=== PATIENT | female | born 1960 | race Caucasian/White ===

== ENCOUNTER 2016-10-07 07:53 | Outpatient (CLI) | payer MEDICAID ==
[2016-10-07 11:37] LABS: BASOPHILS % (AUTO) 0.8 %; EOSINOPHILS # (AUTO) 0.2 10^3/uL (0.0-0.7); EOSINOPHILS % (AUTO) 3.3 %; HCT - HEMATOCRIT 33.7 % (37.0-47.0); HGB - HEMOGLOBIN 10.8 g/dL (12.0-16.0); LYMPHOCYTES # (AUTO) 1.9 10^3/uL (1.5-3.5); LYMPHOCYTES % (AUTO) 29.3 %; MEAN CORPUSCULAR HEMOGLOBIN 26.5 pg (27.0-31.0); MEAN CORPUSCULAR HGB CONC 32.1 g/dL (32.0-36.0); MEAN CORPUSCULAR VOLUME 82.4 fL (81.0-99.0); MEAN PLATELET VOLUME 8.9 fL (7.9-10.8); MONOCYTES # (AUTO) 0.5 10^3/uL (0.0-1.0); MONOCYTES % (AUTO) 7.5 %; NEUTROPHILS # (AUTO) 3.7 10^3/uL (1.5-6.6); NEUTROPHILS % (AUTO) 59.1 %; RED BLOOD COUNT 4.08 10^6/uL (4.20-5.40); RED CELL DISTRIBUTION WIDTH 14.7 % (12.0-15.0); UNCORRECTED WHITE BLOOD COUNT 6.3 x10^3/uL; WHITE BLOOD COUNT 6.3 x10^3/uL (4.8-10.8)
[2016-10-07 11:51] LABS: ALBUMIN/GLOBULIN RATIO 1.2 (1.0-2.2); BILIRUBIN,TOTAL 0.5 mg/dL (0.2-1.0); BUN - BLOOD UREA NITROGEN 13 mg/dL (6-20); CALCIUM 9.1 mg/dL (8.5-10.3); CARBON DIOXIDE - CO2 26 mmol/L (21-32); CHLORIDE 105 mmol/L (101-111); CHOL/HDL RATIO 3.5 (<4.4); CHOLESTEROL 131 mg/dL; CREATININE 0.8 mg/dL (0.4-1.0); GFR - MDRD 74 (>89); GLUCOSE 175 mg/dL (70-100); HDL CHOLESTEROL 37 mg/dL; LDL/HDL RATIO 1.2 (<4.4); POTASSIUM 3.9 mmol/L (3.5-5.0); SODIUM 139 mmol/L (135-145); TRIGLYCERIDES 243 mg/dL; VLDL CHOLESTEROL 49 mg/dL
[2016-10-07 12:11] LABS: HEMOGLOBIN A1C 0.48 g/dL
== END 2016-10-07 07:54 | disposition home or self-care (01) ==
LOC: LAB.F 07:53
PROVIDERS: ATTEND Nurse Practitioner Family
DX: E78.5 Hyperlipidemia, unspecified (principal); E11.9 Type 2 diabetes mellitus without complications; E03.9 Hypothyroidism, unspecified; D50.9 Iron deficiency anemia, unspecified
CPT/HCPCS: 36415; 80053; 80061; 83036; 84443; 85025

== ENCOUNTER 2016-11-15 13:32 | Outpatient (CLI) | payer MEDICAID | END 2016-11-15 13:33 | disposition home or self-care (01) | LOC: SC 13:32 | PROVIDERS: ATTEND Internal Medicine Pulmonary Disease | DX: G47.33 Obstructive sleep apnea (adult) (pediatric) (principal) | CPT/HCPCS: 99203; 99212 ==

== ENCOUNTER 2016-12-11 19:29 | Outpatient (CLI) | payer MEDICAID | END 2016-12-11 19:30 | disposition home or self-care (01) | LOC: SC 19:29 | PROVIDERS: ATTEND Internal Medicine Pulmonary Disease | DX: G47.33 Obstructive sleep apnea (adult) (pediatric) (principal); G47.61 Periodic limb movement disorder | CPT/HCPCS: 95810 ==

== ENCOUNTER 2016-12-19 10:16 | Outpatient (CLI) | payer MEDICAID ==
[2016-12-19 18:02] LABS: BASOPHILS # (AUTO) 0.1 10^3/uL (0.0-0.1); BASOPHILS % (AUTO) 1.3 %; EOSINOPHILS # (AUTO) 0.2 10^3/uL (0.0-0.7); EOSINOPHILS % (AUTO) 3.9 %; HCT - HEMATOCRIT 36.2 % (37.0-47.0); HGB - HEMOGLOBIN 11.6 g/dL (12.0-16.0); LYMPHOCYTES # (AUTO) 1.6 10^3/uL (1.5-3.5); LYMPHOCYTES % (AUTO) 26.8 %; MEAN CORPUSCULAR HEMOGLOBIN 25.9 pg (27.0-31.0); MEAN CORPUSCULAR HGB CONC 32.2 g/dL (32.0-36.0); MEAN CORPUSCULAR VOLUME 80.5 fL (81.0-99.0); MONOCYTES # (AUTO) 0.5 10^3/uL (0.0-1.0); NEUTROPHILS # (AUTO) 3.7 10^3/uL (1.5-6.6); RED CELL DISTRIBUTION WIDTH 15.4 % (12.0-15.0); UNCORRECTED WHITE BLOOD COUNT 6.1 x10^3/uL; WHITE BLOOD COUNT 6.1 x10^3/uL (4.8-10.8)
[2016-12-19 19:19] LABS: FERRITIN 8.2 ng/mL (11.0-306.8)
[2016-12-19 19:33] LABS: THYROID STIMULATING HORMONE 2.17 uIU/mL (0.34-5.60)
== END 2016-12-19 10:17 | disposition home or self-care (01) ==
LOC: LAB.F 10:16
PROVIDERS: ATTEND Nurse Practitioner Family
DX: D50.9 Iron deficiency anemia, unspecified (principal); E03.9 Hypothyroidism, unspecified
CPT/HCPCS: 36415; 82728; 84439; 84443; 85025

== ENCOUNTER 2017-01-04 10:42 | Outpatient (CLI) | payer MEDICAID | END 2017-01-04 10:43 | disposition home or self-care (01) | LOC: SC 10:42 | PROVIDERS: ATTEND Nurse Practitioner Family | DX: G47.33 Obstructive sleep apnea (adult) (pediatric) (principal); G47.61 Periodic limb movement disorder | CPT/HCPCS: 99212; 99214 ==

== ENCOUNTER 2017-01-11 08:00 | Outpatient (CLI) | payer MEDICAID | END 2017-01-11 23:59 | disposition home or self-care (01) | LOC: LAB.R 08:00 | PROVIDERS: ATTEND Nurse Practitioner Family | DX: D50.9 Iron deficiency anemia, unspecified (principal) | CPT/HCPCS: 82270 ==

== ENCOUNTER 2017-02-09 19:22 | Outpatient (CLI) | payer MEDICAID | END 2017-02-09 19:23 | disposition home or self-care (01) | LOC: SC 19:22 | PROVIDERS: ATTEND Internal Medicine Pulmonary Disease | DX: G47.33 Obstructive sleep apnea (adult) (pediatric) (principal); G47.61 Periodic limb movement disorder; Z68.41 Body mass index [BMI] 40.0-44.9, adult | CPT/HCPCS: 95811 ==

== ENCOUNTER 2017-03-16 10:00 | Outpatient (CLI) | payer MEDICAID | END 2017-03-16 10:01 | disposition home or self-care (01) | LOC: SC 10:00 | PROVIDERS: ATTEND Nurse Practitioner Family | DX: G47.33 Obstructive sleep apnea (adult) (pediatric) (principal) | CPT/HCPCS: 99212; 99214 ==

== ENCOUNTER 2017-04-18 07:47 | Day surgery (SDC) | payer MEDICAID ==
[2017-04-18] MEDS ORDERED: LACTATED RINGERS 1,000 ML IV ONE (08:24)
[2017-04-18] MEDS ORDERED: fentaNYL 100 MCG/2 ML VIAL IVP ONE (09:28)
[2017-04-18] MEDS ORDERED: MIDAZOLAM 2 MG/2 ML VIAL IVP ONE (09:28)
[2017-04-18 11:06] VITALS: BP 112/70
== END 2017-04-18 07:48 | disposition home or self-care (01) ==
LOC: SDS 07:47
PROVIDERS: ATTEND Surgery
PROC: 0DB68ZX Excision of Stomach, Via Natural or Artificial Opening Endoscopic, Diagnostic (ICD-10-PCS; principal; 2017-04-18 09:00)
PROC: 0DJD8ZZ Inspection of Lower Intestinal Tract, Via Natural or Artificial Opening Endoscopic (ICD-10-PCS; 2017-04-18 09:00)
DX: K31.7 Polyp of stomach and duodenum (principal); K92.1 Melena; I10 Essential (primary) hypertension; F32.9 Major depressive disorder, single episode, unspecified
CPT/HCPCS: 43239; 45378; J7120

== ENCOUNTER 2017-05-08 07:27 | Outpatient (CLI) | payer MEDICAID ==
[2017-05-08 12:05] LABS: BASOPHILS # (AUTO) 0.1 10^3/uL (0.0-0.1); BASOPHILS % (AUTO) 0.9 %; EOSINOPHILS # (AUTO) 0.3 10^3/uL (0.0-0.7); EOSINOPHILS % (AUTO) 4.5 %; HGB - HEMOGLOBIN 12.2 g/dL (12.0-16.0); LYMPHOCYTES # (AUTO) 1.9 10^3/uL (1.5-3.5); LYMPHOCYTES % (AUTO) 28.1 %; MEAN CORPUSCULAR HEMOGLOBIN 26.2 pg (27.0-31.0); MEAN CORPUSCULAR HGB CONC 32.8 g/dL (32.0-36.0); MEAN CORPUSCULAR VOLUME 79.9 fL (81.0-99.0); MEAN PLATELET VOLUME 8.8 fL (7.9-10.8); MONOCYTES # (AUTO) 0.5 10^3/uL (0.0-1.0); MONOCYTES % (AUTO) 6.7 %; NEUTROPHILS # (AUTO) 4.1 10^3/uL (1.5-6.6); NEUTROPHILS % (AUTO) 59.8 %; PLT - PLATELET COUNT 303 10^3/uL (130-450); RED BLOOD COUNT 4.66 10^6/uL (4.20-5.40); RED CELL DISTRIBUTION WIDTH 14.9 % (12.0-15.0); WHITE BLOOD COUNT 6.9 x10^3/uL (4.8-10.8)
[2017-05-08 12:39] LABS: HB2 TOTAL 12.7 g/dL; HEMOGLOBIN A1C 0.58 g/dL; HEMOGLOBIN A1C % 6.3 % (4.6-6.2)
[2017-05-08 12:42] LABS: ALBUMIN 3.9 g/dL (3.2-5.5); ALBUMIN/GLOBULIN RATIO 1.3 (1.0-2.2); ALKALINE PHOSPHATASE 72 IU/L (42-121); ALT ALANINE AMINOTRANSFERASE 20 IU/L (10-60); AST ASPARTATE AMINOTRANSFERASE 24 IU/L (10-42); BILIRUBIN,TOTAL 0.6 mg/dL (0.2-1.0); BUN - BLOOD UREA NITROGEN 12 mg/dL (6-20); CALCIUM 8.7 mg/dL (8.5-10.3); CARBON DIOXIDE - CO2 23 mmol/L (21-32); CHLORIDE 101 mmol/L (101-111); CHOLESTEROL 114 mg/dL; CREATININE 0.8 mg/dL (0.4-1.0); GFR - MDRD 74 (>89); GLUCOSE 113 mg/dL (70-100); HDL CHOLESTEROL 38 mg/dL; LDL CHOLESTEROL,CALCULATED 47 mg/dL; LDL/HDL RATIO 1.2 (<4.4); SODIUM 137 mmol/L (135-145); TOTAL PROTEIN 6.9 g/dL (6.7-8.2); VLDL CHOLESTEROL 29 mg/dL
[2017-05-08 12:48] LABS: THYROID STIMULATING HORMONE 3.07 uIU/mL (0.34-5.60)
[2017-05-08 12:54] LABS: FERRITIN 15.6 ng/mL (11.0-306.8)
== END 2017-05-08 07:28 | disposition home or self-care (01) ==
LOC: LAB.F 07:27
PROVIDERS: ATTEND Nurse Practitioner Family
DX: E11.9 Type 2 diabetes mellitus without complications (principal); R19.7 Diarrhea, unspecified; E78.5 Hyperlipidemia, unspecified; D50.9 Iron deficiency anemia, unspecified; E03.9 Hypothyroidism, unspecified; R53.83 Other fatigue
CPT/HCPCS: 36415; 80053; 80061; 81599; 82728; 82784; 83036; 83516; 83721; 84443; 85025

== ENCOUNTER 2017-05-08 10:31 | Outpatient (CLI) | payer MEDICAID | END 2017-05-08 10:32 | disposition home or self-care (01) | LOC: LAB 10:31 | PROVIDERS: ATTEND Surgery | DX: R19.7 Diarrhea, unspecified (principal) | CPT/HCPCS: 81599 ==

== ENCOUNTER 2017-05-16 10:14 | Outpatient (CLI) | payer MEDICAID | END 2017-05-16 10:15 | disposition home or self-care (01) | LOC: SC 10:14 | PROVIDERS: ATTEND Nurse Practitioner Family | DX: G47.33 Obstructive sleep apnea (adult) (pediatric) (principal); G47.00 Insomnia, unspecified | CPT/HCPCS: 99212; 99214 ==

== ENCOUNTER 2017-05-19 12:10 | Outpatient (CLI) | payer MEDICAID ==
[2017-05-19 18:10] LABS: % IRON SATURATION 7 % (20-50); IRON 29 ug/dL (28-170); TOTAL IRON BINDING CAPACITY 426 ug/dL (250-450); TRANSFERRIN 304 mg/dL (192-382)
== END 2017-05-19 12:11 | disposition home or self-care (01) ==
LOC: LAB.F 12:10
PROVIDERS: ATTEND Surgery
DX: D64.9 Anemia, unspecified (principal)
CPT/HCPCS: 36415; 83540; 84466

== ENCOUNTER 2017-05-28 09:00 | Outpatient (CLI) | payer MEDICAID | END 2017-05-28 09:01 | disposition home or self-care (01) | LOC: LAB.R 09:00 | PROVIDERS: ATTEND Surgery | DX: K92.2 Gastrointestinal hemorrhage, unspecified (principal) | CPT/HCPCS: 82270 ==

== ENCOUNTER 2017-07-10 12:36 | Outpatient (CLI) | payer MEDICAID | END 2017-07-10 12:37 | disposition home or self-care (01) | LOC: LAB.F 12:36 | PROVIDERS: ATTEND Nurse Practitioner Family | DX: E03.9 Hypothyroidism, unspecified (principal) | CPT/HCPCS: 36415; 84443 ==

== ENCOUNTER 2017-10-13 18:22 | Observation (INO) | payer MEDICAID ==
--- NOTE | 2017-10-13 18:42 | ED Physician Documentation ---
PD HPI SYNCOPE - Stated complaint Stated Complaint: TRANSFUSION - Chief complaint Chief Complaint: General - History obtained from History obtained from: Patient, Family - History of Present Illness Timing - onset: Yesterday Duration: Seconds Preceding symptoms: Light headed Similar symptoms before: Has not had sx before Recently seen: Clinic, Not recently seen - Additional information Additional information: Patient is a 57 year old female who is presenting to the emergency department for syncopal episode. Patient has been worked up for GI bleeding and anemia for weeks. Patient had upper and lower endoscopy that did not show anything. patient is supposed to get a pill swallow study. Patient stated that she had a syncopal episode yesterday and today when she went to her doctor's office she was found to have a hemoglobin of 5.5. Patient does state that she has been having dark stools lately. Review of Systems Constitutional: denies: Fever, Chills Eyes: reports: Reviewed and negative Ears: reports: Reviewed and negative Cardiac: denies: Chest pain / pressure, Palpitations GI: reports: Bloody / black stool. denies: Nausea, Vomiting : reports: Reviewed and negative Neurologic: reports: Syncope. denies: Headache, Head injury Immunocompromised: denies: Immunocompromised PD PAST MEDICAL HISTORY - Past Medical History Cardiovascular: Hypertension, High cholesterol Respiratory: Sleep apnea, CPAP use Endocrine/Autoimmune: Type 2 diabetes, HyPOthyroidism GI: None : None HEENT: None Psych: Depression Musculoskeletal: None Derm: Psoriasis, Other - Past Surgical History General: Colonoscopy Ortho: Other - Present Medications Home Medications: Ambulatory Orders Medication Instructions Recorded Confirmed Atorvastatin [Lipitor] 20 mg ORAL DAILY 04/17/17 04/18/17 Ferrous Sulfate 324 mg ORAL BID 04/17/17 04/18/17 Levothyroxine [Synthroid] 50 mcg ORAL DAILY 04/17/17 04/18/17 Sertraline [Zoloft] 100 mg ORAL DAILY 04/17/17 04/18/17 amLODIPine [Norvasc] 5 mg ORAL DAILY 04/17/17 04/18/17 metFORMIN [Glucophage] 1,000 mg ORAL BID 04/17/17 04/18/17 - Allergies Allergies/Adverse Reactions: Allergies Allergy/AdvReac Type Severity Reaction Status Date / Time cephalexin [From Keflex] AdvReac Itching Verified 10/13/17 18:32 PD ED PE NORMAL - Vitals Vital signs reviewed: Yes - General General: Alert and oriented X 3, No acute distress - HEENT HEENT: Atraumatic, PERRL - Cardiac Cardiac: RRR - Respiratory Respiratory: No respiratory distress - Abdomen Abdomen: Soft, Non tender, Non distended - Extremities Extremities: No deformity - Neuro Neuro: Alert and oriented X 3, No motor deficit, Normal speech Eye Opening: Spontaneous Motor: Obeys Commands Verbal: Oriented GCS Score: 15 PD ED PE EXPANDED - Eyes Eyes: Other (pale conjunctiva) - Rectal Rectal: Heme Occult Pos - QC + - Derm Derm: Warm and dry, Pale Results - Vitals Vitals: Vital Signs - 24 hr 10/13/17 10/13/17 18:28 19:50 Temperature 36.1 C L Heart Rate 84 71 Respiratory 14 16 Rate Blood Pressure 159/67 H 131/56 H O2 Saturation 99 97 Oxygen O2 Source Room air - EKG (time done) 1914 Rate: Rate (enter#) (78) Rhythm: NSR [place]: Normal Intervals: Normal MD QRS: Normal Ischemia: Normal ST segments - Labs Labs: Laboratory Tests 10/13/17 10/13/17 10/13/17 18:36 18:36 18:36 WBC 8.2 RBC 2.39 L Hgb 6.5 L* Hct 20.3 L MCV 85.2 MCH 27.2 MCHC 31.9 L RDW 15.9 H Plt Count 329 MPV 8.4 Neut # (Auto) 5.7 Lymph # (Auto) 1.8 [place] # (Auto) 0.5 Eos # (Auto) 0.2 Baso # (Auto) 0.0 Absolute Nucleated RBC 0.03 Nucleated RBC % 0.3 Manual Slide Review Indicated Platelet Estimate NORMAL (130-450,000) RBC Morph Micro Appear 1+ MICROCYTOSIS PT INR APTT Sodium 137 Potassium 3.9 Chloride 106 Carbon Dioxide 22 Anion Gap 9.0 BUN 25 H Creatinine 0.8 Estimated GFR (MDRD) 74 L Glucose 134 H Calcium 8.3 L Total Bilirubin 0.5 AST 25 ALT 16 Alkaline Phosphatase 60 Total Protein 6.3 L Albumin 3.3 Globulin 3.0 Albumin/Globulin Ratio 1.1 Lipase 37 Blood Type O POSITIVE Blood Type Recheck Antibody Screen NEGATIVE Crossmatch IS Only 10/13/17 10/13/17 10/13/17 18:36 18:36 19:27 WBC RBC Hgb Hct MCV MCH MCHC RDW Plt Count MPV Neut # (Auto) Lymph # (Auto) [place] # (Auto) Eos # (Auto) Baso # (Auto) Absolute Nucleated RBC Nucleated RBC % Manual Slide Review Platelet Estimate RBC Morph Micro Appear PT 13.7 H INR 1.2 APTT 24.6 L Sodium Potassium Chloride Carbon Dioxide Anion Gap BUN Creatinine Estimated GFR (MDRD) Glucose Calcium Total Bilirubin AST ALT Alkaline Phosphatase Total Protein Albumin Globulin Albumin/Globulin Ratio Lipase Blood Type Cancelled Blood Type Recheck O POSITIVE Antibody Screen Cancelled Crossmatch IS Only See Detail PD MEDICAL DECISION MAKING - ED course Complexity details: reviewed old records, reviewed results, re-evaluated patient , considered differential, d/w patient ED course: patient was seen and examined at bedside. IV access was gained and labs were drawn. patient was found to have a hemoglobin of 6.5. occult stool was positive. blood transfusion was ordered. Hospitalist was contacted and the case was discussed with her. Patient was admitted for further evaluation and care. - Sepsis Event Vital Signs: Vital Signs - 24 hr 10/13/17 10/13/17 18:28 19:50 Temperature 36.1 C L Heart Rate 84 71 Respiratory 14 16 Rate Blood Pressure 159/67 H 131/56 H O2 Saturation 99 97 Oxygen O2 Source Room air Departure - Departure Disposition: ED Place in Observation Clinical Impression: Symptomatic anemia, GI bleed Condition: Good
[2017-10-13 18:51] LABS: BASOPHILS % (AUTO) 0.5 %; EOSINOPHILS # (AUTO) 0.2 10^3/uL (0.0-0.7); EOSINOPHILS % (AUTO) 2.1 %; LYMPHOCYTES # (AUTO) 1.8 10^3/uL (1.5-3.5); LYMPHOCYTES % (AUTO) 21.3 %; MEAN CORPUSCULAR HEMOGLOBIN 27.2 pg (27.0-31.0); MEAN CORPUSCULAR HGB CONC 31.9 g/dL (32.0-36.0); MEAN CORPUSCULAR VOLUME 85.2 fL (81.0-99.0); MEAN PLATELET VOLUME 8.4 fL (7.9-10.8); MONOCYTES # (AUTO) 0.5 10^3/uL (0.0-1.0); MONOCYTES % (AUTO) 6.6 %; NEUTROPHILS # (AUTO) 5.7 10^3/uL (1.5-6.6); NEUTROPHILS % (AUTO) 69.5 %; PLT - PLATELET COUNT 329 10^3/uL (130-450); RED BLOOD COUNT 2.39 10^6/uL (4.20-5.40); RED CELL DISTRIBUTION WIDTH 15.9 % (12.0-15.0); WHITE BLOOD COUNT 8.2 x10^3/uL (4.8-10.8)
[2017-10-13 18:53] LABS: HGB - HEMOGLOBIN 6.5 g/dL (12.0-16.0); INR 1.2 (0.8-1.2); PT - PROTHROMBIN TIME 13.7 secs (9.9-12.6)
[2017-10-13 18:56] LABS: ALBUMIN 3.3 g/dL (3.2-5.5); ALBUMIN/GLOBULIN RATIO 1.1 (1.0-2.2); BILIRUBIN,TOTAL 0.5 mg/dL (0.2-1.0); CALCIUM 8.3 mg/dL (8.5-10.3); CREATININE 0.8 mg/dL (0.4-1.0); TOTAL PROTEIN 6.3 g/dL (6.7-8.2)
[2017-10-13 19:34] LABS: PLATELET ESTIMATE, MANUAL NORMAL (130-450,000) (NORMAL)
[2017-10-13] MEDS ORDERED: FUROSEMIDE 20 MG/2 ML VIAL IVP PRN (19:47)
[2017-10-13] MEDS ORDERED: TEMAZEPAM 15 MG CAPSULE PO PRN (19:51)
[2017-10-13] MEDS ORDERED: HYDROcod/ACETAM 5/325 MG TABLET PO PRN (19:51)
[2017-10-13] MEDS ORDERED: SODIUM CHLORIDE FLUSH 0.9% 10 ML SYRINGE IVP PRN (19:51)
[2017-10-13] MEDS ORDERED: D5.45NS W/20 MEQ KCL 1,000 ML IV SCH (20:00)
[2017-10-13] MEDS ORDERED: metFORMIN 500 MG TABLET PO SCH (21:00)
[2017-10-13] MEDS: FERROUS SULFATE 325 MG TABLET PO SCH (21:01)
--- NOTE | 2017-10-13 22:46 | HISTORY & PHYSICAL EXAMINATION ---
Chief Complaint - Chief Complaint Chief Complaint: I'm tired History of Present Illness - Admitted From Admitted From:: Home - History Obtained From History obtained from: patient, ED physician - History of Present Illness HPI Comment/Other: Radha Amezcua is a very pleasant 57-year-old female who has a history of anemia which was found on a visit earlier this year to would be general. She at that time underwent both an upper and lower endoscopy which failed to find a bleeding cause however the patient has continued to have blood per rectum. When she came to the emergency department today she was found to have a hemoglobin of 6.5 and again her stools were positive for occult blood. She is already scheduled to have a PillCam on Monday but because of her severe anemia which is symptomatic it was felt to be prudent to admit her to an observation bed and to transfuse her. History - Past Medical History Cardiovascular: reports: Hypertension, High cholesterol Respiratory: reports: Sleep apnea, CPAP use Endocrine/Autoimmune: reports: Type 2 diabetes, HyPOthyroidism GI: reports: None, GI bleed : reports: None HEENT: reports: None Psych: reports: Depression Musculoskeletal: reports: None Derm: reports: Psoriasis, Other MRSA Hx?: No - Past Surgical History General: reports: Colonoscopy Ortho: reports: Amputation (Partial amputation, left ring finger, traumatic), Other - Family & Social History Family History: Mother: , Father: , Hyperlipidemia, Hypertension , [place], Sister: , Cancer (Sister had breast cancer, brother from multiple myeloma), Brother: , Cancer Family History Comment/Other: Mother age 91 complications of old age, father age 61 complications of cirrhosis and heart disease Living arrangement: At home Living Situation: Alone - Substance History Use: Uses substance without health or social issues: NONE Abuse: Recurrent use of substance despite neg consequences: NONE Dependence: Experiences withdrawal or developed tolerances: NONE - POLST Patient has POLST: Yes POLST Status: DNR Meds/Allgy - Home Medications Home Medications: Ambulatory Orders Medication Instructions Recorded Confirmed Atorvastatin [Lipitor] 20 mg ORAL DAILY 04/17/17 04/18/17 Ferrous Sulfate 324 mg ORAL BID 04/17/17 04/18/17 Levothyroxine [Synthroid] 50 mcg ORAL DAILY 04/17/17 04/18/17 Sertraline [Zoloft] 100 mg ORAL DAILY 04/17/17 04/18/17 amLODIPine [Norvasc] 5 mg ORAL DAILY 04/17/17 04/18/17 metFORMIN [Glucophage] 1,000 mg ORAL BID 04/17/17 04/18/17 - Allergies Allergies/Adverse Reactions: Allergies Allergy/AdvReac Type Severity Reaction Status Date / Time cephalexin [From Keflex] AdvReac Itching Verified 10/13/17 18:32 Review of Systems - Constitutional Constitutional: reports: Fatigue, Malaise, Weakness. denies: Fever, Chills, Night sweats - Eyes Eyes: denies: Pain, Irritation, Amaurosis, Blurred vision, Dipolpia - Ears, Nose & Throat Ears, Nose & Throat: denies: Ear pain, Hearing loss, Hearing aids, Tinnitus, Vertigo, Nasal pain, Nasal discharge, Nosebleeds - Cardiovascular Cariovascular: denies: Irregular heart rate, Palpitations, Chest pain, Edema - Respiratory Respiratory: denies: Cough, Sputum production, Wheezing, Snoring - Gastrointestinal Gastrointestinal: reports: Rectal bleeding. denies: Abdominal pain, Abdominal distention, Constipation, Diarrhea, Change in bowel habits, Black stools, Bloody stools, Nausea, Vomiting, Justin blood emesis, Coffee grounds emesis - Genitourinary Genitourinary: denies: Dysuria, Frequency, Urgency, Hematuria - Musculoskeletal Musculoskeletal: denies: Muscle pain, Back pain, Muscle aches, Stiffness - Integumentary Integumentary: denies: Rash, Pruritis, Lesions, Dryness - Neurological Neurological: denies: General weakness, Focal weakness, Headache, Dizziness - Psychiatric Psychiatric: denies: Depression, Anxiety, Suicidal, Hallucinations - Endocrine Endocrine: denies: Polyuria, Polydypsia, Polyphagia - Hematologic/Lymphatic Hematologic/Lymphatic: denies: Anemia, Bruising, Petechiae, Lymphadenopathy - All Other Systems All Other Systems: reports: Reviewed and negative Exam - Vital Signs Reviewed Vital Signs: Yes Vital Signs: Vital Signs x48h Temp Pulse Pulse Resp BP BP Pulse Ox 10/13/17 21:02 37.0 C 81 16 122/61 100 10/13/17 20:22 36.9 C 78 18 137/68 H 10/13/17 20:13 36.9 C 78 16 125/66 10/13/17 20:03 36.8 C 78 16 120/61 - Physical Exam General Appearance: positive: No acute distress, Alert Eyes Bilateral: positive: Normal inspection, PERRL, EOMI, No lid inflammation, Conjunctivae nml, No scleral icterus ENT: positive: ENT inspection nml, Pharynx nml, No signs of dehydration Neck: positive: Nml inspection, Thyroid nml, No JVD, Trachea midline. negative : Thyromegaly Respiratory: positive: Chest non-tender, No respiratory distress, Breath sounds nml. negative: Wheezes, Rales, Rhonchi Cardiovascular: positive: Regular rate & rhythm, No murmur, No gallop Peripheral Pulses: positive: 1+ Abdomen: positive: Non-tender, No organomegaly, Nml bowel sounds, No distention. negative: Guarding, Rebound Back: positive: Nml inspection. negative: CVA tenderness (R), CVA tenderness (L ) Skin: positive: Color nml, No rash, Warm, Dry. negative: Cyanosis Extremities: positive: Non-tender, Full ROM, Nml appearance, No pedal edema, Other (Patient has a partial amputation of her left ring finger) Neurologic/Psychiatric: positive: Oriented x3, CN's nml (2-12), Motor nml, Sensation nml, Mood/affect nml Conclusion/Plan - Problem List (1) GI bleed Conclusion/Plan: The patient has already undergone upper and lower endoscopies, failing to find a bleeding source. She is scheduled for a PillCam on Monday. Her hemoglobin is 6.5 we will transfuse her up to 10 so that she may safely be discharged and have a PillCam done. (2) Hypertension Conclusion/Plan: Fairly well-managed, continue Norvasc. (3) Hyperlipidemia Conclusion/Plan: Presumably well-managed, continue Lipitor. (4) Hypothyroidism Conclusion/Plan: We will continue the patient on her home dosing of levothyroxine and obtain a TSH level tomorrow morning. (5) Diabetes mellitus type II, controlled Conclusion/Plan: We will continue the patient on her home metformin dosing and check a hemoglobin A1c. (6) Depression Conclusion/Plan: We will continue the patient on her Zoloft. She denies any depression or anxiety at this time. (7) Symptomatic anemia Conclusion/Plan: We will transfuse the patient 4 units of packed red blood cells and reassess her in the morning. - Lab Results Lab results reviewed: Yes Fish Bones: 10/13/17 18:36 10/13/17 18:36 - EKG Results EKG Interpreted Independently: Yes EKG Comparison: Old EKG unavailable EKG Findings: Normal sinus rhythm Core Measures - Anticipated LOS I expect patient to be DC'd or transferred within 96 hours.: Yes - DVT/VTE - Prophylaxis VTE/DVT Device ordered at admit?: Yes
[2017-10-14] MEDS: SODIUM CHLORIDE FLUSH 0.9% 10 ML SYRINGE IVP SCH ×2 (00:46→09:13)
[2017-10-14] MEDS ORDERED: LEVOTHYROXINE 25 MCG TABLET PO SCH (07:00)
[2017-10-14 07:40] LABS: HB2 TOTAL 6.7 g/dL; HEMOGLOBIN A1C 0.22 g/dL; HEMOGLOBIN A1C % 5.2 % (4.6-6.2)
[2017-10-14] MEDS ORDERED: metFORMIN 500 MG TABLET PO SCH (08:00)
[2017-10-14] MEDS ORDERED: ATORVASTATIN 10 MG TABLET PO SCH (09:00)
[2017-10-14] MEDS ORDERED: FAMOTIDINE 20 MG TABLET PO SCH (09:00)
[2017-10-14] MEDS ORDERED: SERTRALINE 50 MG TABLET PO SCH (09:00)
[2017-10-14] MEDS ORDERED: amLODIPine 5 MG TABLET PO SCH (09:00)
[2017-10-14] MEDS ORDERED: POLYETHYLENE GLYCOL 3350 17 GM PACKET PO SCH (09:00)
[2017-10-14] MEDS: FERROUS SULFATE 325 MG TABLET PO SCH (09:11)
[2017-10-14 09:50] LABS: CALCIUM 8.2 mg/dL (8.5-10.3); CREATININE 0.7 mg/dL (0.4-1.0)
[2017-10-14 10:00] LABS: HGB - HEMOGLOBIN 9.6 g/dL (12.0-16.0); MEAN CORPUSCULAR HEMOGLOBIN 28.5 pg (27.0-31.0); MEAN CORPUSCULAR HGB CONC 33.3 g/dL (32.0-36.0); MEAN CORPUSCULAR VOLUME 85.6 fL (81.0-99.0); MEAN PLATELET VOLUME 8.5 fL (7.9-10.8); RED BLOOD COUNT 3.36 10^6/uL (4.20-5.40); RED CELL DISTRIBUTION WIDTH 15.4 % (12.0-15.0); WHITE BLOOD COUNT 7.7 x10^3/uL (4.8-10.8)
[2017-10-14] MEDS ORDERED: POTASSIUM CHLORIDE 20 MEQ TABLET PO ONE (10:14)
--- NOTE | 2017-10-14 10:45 | Discharge Plan ---
Discharge Plan Disposition: 01 Home, Self Care Condition: Poor Diet: Regular Activity Restrictions: Activity as Tolerated Shower Restrictions: No (fall precaution) Weight Bearing: Full Weight Instruction Topics: Bleeding Gastrointestinal Additional Instructions or Follow Up instructions: You may follow up your PCP in one week, and follow up your PillCam study as the schedule. You present no acute GI bleeding now. Should your symptoms return or worsen, you may present ER or call 911 for help. No Smoking: If you smoke, Please STOP! Call for help. Follow-up with: Jaleesa Leslie ARNP [Primary Care Provider] -
--- NOTE | 2017-10-14 10:49 | DISCHARGE SUMMARY ---
Discharge Summary Discharge Date: 10/14/17 Discharging Provider: GONZÁLES Primary Care Provider: Dr. Jaleesa Leslie Condition at Discharge: Poor Discharge Disposition: 01 Home, Self Care Discharge Facility Name: home - DIAGNOSES Admission Diagnoses: (1) GI bleed (2) Hypertension (3) Hyperlipidemia (4) Hypothyroidism (5) Diabetes mellitus type II, controlled (6) Depression (7) Symptomatic anemia Discharge Diagnoses with Status of Each Condition: (1) GI bleed no acute GI bleed, per pt and nurse report. pt had transfusion of 4 unit of blood. Now her HGB is 9.6. pt state she feel much better, no complaint. pt request to be d/c today. pt state she will follow up the schedule of PillCam (2) Hypertension stable, continue PCP management (3) Hyperlipidemia stable, continue PCP management (4) Hypothyroidism normal TSH, stable (5) Diabetes mellitus type II, controlled controlled glucose level, continue PCP management (6) Depression stable (7) Symptomatic anemia resolved after transfusion of blood - HPI History of Present Illness: refer from Dr. Dick's HPI for pt as the following: Radha Amezcua is a very pleasant 57-year-old female who has a history of anemia which was found on a visit earlier this year to would be general. She at that time underwent both an upper and lower endoscopy which failed to find a bleeding cause however the patient has continued to have blood per rectum. When she came to the emergency department today she was found to have a hemoglobin of 6.5 and again her stools were positive for occult blood. She is already scheduled to have a PillCam on Monday but because of her severe anemia which is symptomatic it was felt to be prudent to admit her to an observation bed and to transfuse her. - ALLERGIES Allergies/Adverse Reactions: Allergies Allergy/AdvReac Type Severity Reaction Status Date / Time cephalexin [From Keflex] AdvReac Itching Verified 10/13/17 18:32 - MEDICATIONS Home Medications: Ambulatory Orders Medication Instructions Recorded Confirmed Atorvastatin [Lipitor] 20 mg ORAL DAILY 04/17/17 10/14/17 Ferrous Sulfate 324 mg ORAL BID 04/17/17 10/14/17 Levothyroxine [Synthroid] 75 mcg ORAL DAILY 04/17/17 10/14/17 Sertraline [Zoloft] 100 mg ORAL DAILY 04/17/17 10/14/17 amLODIPine [Norvasc] 5 mg ORAL DAILY 04/17/17 10/14/17 metFORMIN [Glucophage] 1,000 mg ORAL BID 04/17/17 10/14/17 - PHYSICAL EXAM AT DISCHARGE General Appearance: positive: No acute distress, Alert. negative: Lethargic Eyes Bilateral: positive: Normal inspection, PERRL, No lid inflammation, Conjunctivae nml ENT: positive: ENT inspection nml, Pharynx nml, No signs of dehydration. negative: Purulent nasal drainage, Pharyngeal erythema, Oral lesions Neck: positive: Nml inspection, Thyroid nml, No JVD, Trachea midline. negative : Thyromegaly, Lymphadenopathy (R), Lymphadenopathy (L), Stiff neck, Swelling/ bruising, Tracheal deviation Respiratory: positive: Chest non-tender, No respiratory distress, Breath sounds nml. negative: Wheezes, Rales, Rhonchi Cardiovascular: positive: Regular rate & rhythm, No murmur, No gallop. negative : Irregularly irregular, Extrasystoles, Tachycardia, Bradycardia, Systolic murmur, Diastolic murmur Peripheral Pulses: positive: 2+ Abdomen: positive: Non-tender, No organomegaly, Nml bowel sounds, No distention. negative: Tenderness, Guarding, Rebound Back: positive: Nml inspection. negative: CVA tenderness (R), CVA tenderness (L ) Skin: positive: Color nml, No rash, Warm, Dry. negative: Cyanosis, Diaphoresis , Pallor Extremities: positive: Non-tender, Full ROM, Nml appearance. negative: Pedal edema, Calf tenderness, Joint swelling, Heraclio's sign/cords Neurologic/Psychiatric: positive: Oriented x3, Motor nml, Sensation nml, Mood/ affect nml. negative: Sensory loss, Facial droop, Slurred/abnml speech, Depressed mood/affect - LABS Result Diagrams: 10/14/17 09:10 10/14/17 09:10 - FOLLOW UP Follow Up: You may follow up your PCP in one week, and follow up your PillCam study as the schedule. You present no acute GI bleeding now. Should your symptoms return or worsen, you may present ER or call 911 for help. - TIME SPENT Time Spent in Discharge (Minutes): 45
[2017-10-14 11:35] VITALS: BP 128/62
== END 2017-10-14 12:35 | disposition home or self-care (01) ==
LOC: ED 18:22 → MS2 19:51
PROVIDERS: ADMIT Hospitalist; ATTEND Nurse Practitioner Gerontology
DX: K92.1 Melena (principal); D50.0 Iron deficiency anemia secondary to blood loss (chronic); I10 Essential (primary) hypertension; E11.9 Type 2 diabetes mellitus without complications; E03.9 Hypothyroidism, unspecified; F32.9 Major depressive disorder, single episode, unspecified; E78.5 Hyperlipidemia, unspecified; G47.30 Sleep apnea, unspecified; Z79.84 Long term (current) use of oral hypoglycemic drugs; Z79.899 Other long term (current) drug therapy; Z66 Do not resuscitate
CPT/HCPCS: 36415; 36430; 80048; 80053; 83036; 83690; 84443; 85025; 85027; 85610; 85730; 86850; 86900; 86901; 86920; 93005; 96360; 96361; 99284; A9270; G0378; P9016; 99283

== ENCOUNTER 2017-10-30 11:23 | Outpatient (CLI) | payer MEDICAID ==
[2017-10-30 17:39] LABS: BASOPHILS # (AUTO) 0.1 10^3/uL (0.0-0.1); BASOPHILS % (AUTO) 0.6 %; EOSINOPHILS # (AUTO) 0.1 10^3/uL (0.0-0.7); EOSINOPHILS % (AUTO) 1.4 %; HGB - HEMOGLOBIN 11.4 g/dL (12.0-16.0); LYMPHOCYTES # (AUTO) 3.3 10^3/uL (1.5-3.5); LYMPHOCYTES % (AUTO) 37.6 %; MEAN CORPUSCULAR HEMOGLOBIN 28.2 pg (27.0-31.0); MEAN CORPUSCULAR HGB CONC 32.1 g/dL (32.0-36.0); MEAN CORPUSCULAR VOLUME 87.8 fL (81.0-99.0); MEAN PLATELET VOLUME 8.6 fL (7.9-10.8); MONOCYTES # (AUTO) 0.7 10^3/uL (0.0-1.0); MONOCYTES % (AUTO) 8.4 %; NEUTROPHILS # (AUTO) 4.5 10^3/uL (1.5-6.6); PLT - PLATELET COUNT 385 10^3/uL (130-450); RED BLOOD COUNT 4.04 10^6/uL (4.20-5.40); RED CELL DISTRIBUTION WIDTH 15.3 % (12.0-15.0); WHITE BLOOD COUNT 8.7 x10^3/uL (4.8-10.8)
== END 2017-10-30 11:24 | disposition home or self-care (01) ==
LOC: LAB.S 11:23
PROVIDERS: ATTEND Nurse Practitioner Family
DX: K92.2 Gastrointestinal hemorrhage, unspecified (principal)
CPT/HCPCS: 36415; 85025

== ENCOUNTER 2017-12-15 10:55 | Outpatient (CLI) | payer MEDICAID ==
[2017-12-15 17:39] LABS: BASOPHILS # (AUTO) 0.1 10^3/uL (0.0-0.1); EOSINOPHILS # (AUTO) 0.2 10^3/uL (0.0-0.7); EOSINOPHILS % (AUTO) 3.3 %; HGB - HEMOGLOBIN 12.1 g/dL (12.0-16.0); LYMPHOCYTES # (AUTO) 1.5 10^3/uL (1.5-3.5); LYMPHOCYTES % (AUTO) 26.6 %; MEAN CORPUSCULAR HGB CONC 32.3 g/dL (32.0-36.0); MEAN CORPUSCULAR VOLUME 83.5 fL (81.0-99.0); MEAN PLATELET VOLUME 9.2 fL (7.9-10.8); MONOCYTES # (AUTO) 0.4 10^3/uL (0.0-1.0); MONOCYTES % (AUTO) 7.4 %; NEUTROPHILS # (AUTO) 3.5 10^3/uL (1.5-6.6); NEUTROPHILS % (AUTO) 61.7 %; PLT - PLATELET COUNT 263 10^3/uL (130-450); RED BLOOD COUNT 4.49 10^6/uL (4.20-5.40); RED CELL DISTRIBUTION WIDTH 14.9 % (12.0-15.0); WHITE BLOOD COUNT 5.6 x10^3/uL (4.8-10.8)
[2017-12-15 17:47] LABS: THYROID STIMULATING HORMONE 1.96 uIU/mL (0.34-5.60)
[2017-12-15 17:52] LABS: FERRITIN 11.3 ng/mL (11.0-306.8)
== END 2017-12-15 10:56 | disposition home or self-care (01) ==
LOC: LAB.F 10:55
PROVIDERS: ATTEND Nurse Practitioner Family
DX: D50.9 Iron deficiency anemia, unspecified (principal); E03.9 Hypothyroidism, unspecified
CPT/HCPCS: 36415; 82728; 84443; 85025

== ENCOUNTER 2018-01-31 11:12 | Outpatient (CLI) | payer MEDICAID ==
[2018-01-31 18:10] LABS: BASOPHILS # (AUTO) 0.1 10^3/uL (0.0-0.1); BASOPHILS % (AUTO) 0.9 %; EOSINOPHILS # (AUTO) 0.2 10^3/uL (0.0-0.7); EOSINOPHILS % (AUTO) 4.1 %; HGB - HEMOGLOBIN 12.7 g/dL (12.0-16.0); LYMPHOCYTES # (AUTO) 1.4 10^3/uL (1.5-3.5); LYMPHOCYTES % (AUTO) 24.3 %; MEAN CORPUSCULAR HEMOGLOBIN 26.3 pg (27.0-31.0); MEAN CORPUSCULAR HGB CONC 32.5 g/dL (32.0-36.0); MEAN CORPUSCULAR VOLUME 80.9 fL (81.0-99.0); MEAN PLATELET VOLUME 9.2 fL (7.9-10.8); MONOCYTES # (AUTO) 0.4 10^3/uL (0.0-1.0); MONOCYTES % (AUTO) 7.3 %; NEUTROPHILS # (AUTO) 3.7 10^3/uL (1.5-6.6); NEUTROPHILS % (AUTO) 63.4 %; PLT - PLATELET COUNT 266 10^3/uL (130-450); RED BLOOD COUNT 4.82 10^6/uL (4.20-5.40); RED CELL DISTRIBUTION WIDTH 14.9 % (12.0-15.0); WHITE BLOOD COUNT 5.8 x10^3/uL (4.8-10.8)
[2018-01-31 18:23] LABS: ALBUMIN/GLOBULIN RATIO 1.3 (1.0-2.2); ALKALINE PHOSPHATASE 88 IU/L (42-121); ALT ALANINE AMINOTRANSFERASE 16 IU/L (10-60); AST ASPARTATE AMINOTRANSFERASE 18 IU/L (10-42); BILIRUBIN,TOTAL 0.7 mg/dL (0.2-1.0); BUN - BLOOD UREA NITROGEN 13 mg/dL (6-20); CALCIUM 9.2 mg/dL (8.5-10.3); CARBON DIOXIDE - CO2 28 mmol/L (21-32); CHLORIDE 103 mmol/L (101-111); CHOL/HDL RATIO 3.3 (<4.4); CHOLESTEROL 138 mg/dL; CREATININE 0.8 mg/dL (0.4-1.0); GFR - MDRD 73 (>89); GLUCOSE 127 mg/dL (70-100); HDL CHOLESTEROL 42 mg/dL; LDL CHOLESTEROL,CALCULATED 56 mg/dL; LDL/HDL RATIO 1.3 (<4.4); SODIUM 139 mmol/L (135-145); TOTAL PROTEIN 7.1 g/dL (6.7-8.2); VLDL CHOLESTEROL 40 mg/dL
[2018-01-31 18:34] LABS: HB2 TOTAL 13.2 g/dL; HEMOGLOBIN A1C 0.6 g/dL; HEMOGLOBIN A1C % 6.3 % (4.6-6.2)
== END 2018-01-31 11:13 | disposition home or self-care (01) ==
LOC: LAB.F 11:12
PROVIDERS: ATTEND Nurse Practitioner Family
DX: E11.9 Type 2 diabetes mellitus without complications (principal); E78.5 Hyperlipidemia, unspecified; E03.9 Hypothyroidism, unspecified; D64.9 Anemia, unspecified
CPT/HCPCS: 36415; 80053; 80061; 82043; 83036; 83721; 84443; 85025

== ENCOUNTER 2018-05-18 13:47 | Outpatient (CLI) | payer MEDICAID ==
[2018-05-18 18:00] LABS: BASOPHILS % (AUTO) 0.8 %; CREATININE 0.8 mg/dL (0.4-1.0); EOSINOPHILS # (AUTO) 0.2 10^3/uL (0.0-0.7); EOSINOPHILS % (AUTO) 3.3 %; HGB - HEMOGLOBIN 12.4 g/dL (12.0-16.0); LYMPHOCYTES # (AUTO) 1.1 10^3/uL (1.5-3.5); LYMPHOCYTES % (AUTO) 21.4 %; MEAN CORPUSCULAR HEMOGLOBIN 26.7 pg (27.0-31.0); MEAN CORPUSCULAR HGB CONC 31.9 g/dL (32.0-36.0); MEAN CORPUSCULAR VOLUME 83.6 fL (81.0-99.0); MEAN PLATELET VOLUME 8.8 fL (7.9-10.8); MONOCYTES # (AUTO) 0.4 10^3/uL (0.0-1.0); MONOCYTES % (AUTO) 6.9 %; NEUTROPHILS # (AUTO) 3.5 10^3/uL (1.5-6.6); NEUTROPHILS % (AUTO) 67.6 %; PLT - PLATELET COUNT 281 10^3/uL (130-450); RED BLOOD COUNT 4.66 10^6/uL (4.20-5.40); RED CELL DISTRIBUTION WIDTH 15.1 % (12.0-15.0); WHITE BLOOD COUNT 5.2 x10^3/uL (4.8-10.8)
[2018-05-18 18:31] LABS: HEMOGLOBIN A1C 0.46 g/dL; HEMOGLOBIN A1C % 5.4 % (4.6-6.2)
== END 2018-05-18 13:48 | disposition home or self-care (01) ==
LOC: LAB.F 13:47
PROVIDERS: ATTEND Nurse Practitioner
DX: I10 Essential (primary) hypertension (principal); E11.9 Type 2 diabetes mellitus without complications; D50.9 Iron deficiency anemia, unspecified
CPT/HCPCS: 36415; 80048; 83036; 85025

== ENCOUNTER 2018-05-23 10:19 | Outpatient (CLI) | payer MEDICAID | END 2018-05-23 10:20 | disposition home or self-care (01) | LOC: SC 10:19 | PROVIDERS: ATTEND Nurse Practitioner Family | DX: G47.33 Obstructive sleep apnea (adult) (pediatric) (principal) | CPT/HCPCS: 99212; 99214 ==

== ENCOUNTER 2018-08-20 08:00 | Outpatient (CLI) | payer MEDICAID ==
[2018-08-20 17:58] LABS: BASOPHILS % (AUTO) 0.6 %; EOSINOPHILS # (AUTO) 0.3 10^3/uL (0.0-0.7); EOSINOPHILS % (AUTO) 6.9 %; HGB - HEMOGLOBIN 11.6 g/dL (12.0-16.0); LYMPHOCYTES # (AUTO) 1.4 10^3/uL (1.5-3.5); MEAN CORPUSCULAR HEMOGLOBIN 27.3 pg (27.0-31.0); MEAN CORPUSCULAR HGB CONC 32.4 g/dL (32.0-36.0); MEAN CORPUSCULAR VOLUME 84.4 fL (81.0-99.0); MEAN PLATELET VOLUME 8.8 fL (7.9-10.8); MONOCYTES # (AUTO) 0.4 10^3/uL (0.0-1.0); MONOCYTES % (AUTO) 7.3 %; NEUTROPHILS # (AUTO) 2.9 10^3/uL (1.5-6.6); NEUTROPHILS % (AUTO) 58.2 %; PLT - PLATELET COUNT 287 10^3/uL (130-450); RED BLOOD COUNT 4.25 10^6/uL (4.20-5.40); RED CELL DISTRIBUTION WIDTH 14.2 % (12.0-15.0)
[2018-08-20 18:41] LABS: CHOL/HDL RATIO 2.8 (<4.4); CHOLESTEROL 121 mg/dL; HDL CHOLESTEROL 44 mg/dL; LDL CHOLESTEROL,CALCULATED 53 mg/dL; LDL/HDL RATIO 1.2 (<4.4); VLDL CHOLESTEROL 24 mg/dL
== END 2018-08-20 23:59 | disposition home or self-care (01) ==
LOC: LAB.S 08:00
PROVIDERS: ATTEND Nurse Practitioner Family
DX: E78.5 Hyperlipidemia, unspecified (principal); K92.2 Gastrointestinal hemorrhage, unspecified; D64.9 Anemia, unspecified
CPT/HCPCS: 36415; 80061; 83721; 85025

== ENCOUNTER 2018-08-27 08:00 | Outpatient (CLI) | payer MEDICAID ==
[2018-08-27 19:50] LABS: HB2 TOTAL 12.8 g/dL; HEMOGLOBIN A1C 0.45 g/dL; HEMOGLOBIN A1C % 5.4 % (4.6-6.2)
== END 2018-08-27 23:59 | disposition home or self-care (01) ==
LOC: LAB.S 08:00
PROVIDERS: ATTEND Nurse Practitioner
DX: E11.9 Type 2 diabetes mellitus without complications (principal)
CPT/HCPCS: 36415; 83036

== ENCOUNTER 2019-03-15 11:06 | Outpatient (CLI) | payer MEDICAID ==
[2019-03-15 17:39] LABS: HB2 TOTAL 11.9 g/dL; HEMOGLOBIN A1C 0.56 g/dL; HEMOGLOBIN A1C % 6.5 % (4.6-6.2)
== END 2019-03-15 11:07 | disposition home or self-care (01) ==
LOC: LAB.S 11:06
PROVIDERS: ATTEND Registered Nurse
DX: E11.9 Type 2 diabetes mellitus without complications (principal)
CPT/HCPCS: 36415; 83036

== ENCOUNTER 2019-04-26 12:40 | Outpatient (CLI) | payer MEDICAID ==
[2019-04-26 17:38] LABS: CREATININE 0.9 mg/dL (0.4-1.0)
== END 2019-04-26 12:41 | disposition home or self-care (01) ==
LOC: LAB.S 12:40
PROVIDERS: ATTEND Registered Nurse
DX: E11.9 Type 2 diabetes mellitus without complications (principal); D50.9 Iron deficiency anemia, unspecified
CPT/HCPCS: 36415; 80048; 83540; 84466; 85025

== ENCOUNTER 2019-04-29 13:51 | Outpatient (CLI) | payer MEDICAID ==
[2019-04-29 18:11] LABS: BASOPHILS # (AUTO) 0.1 10^3/uL (0.0-0.1); BASOPHILS % (AUTO) 1.2 %; EOSINOPHILS # (AUTO) 0.3 10^3/uL (0.0-0.7); EOSINOPHILS % (AUTO) 5.5 %; HGB - HEMOGLOBIN 12.2 g/dL (12.0-16.0); LYMPHOCYTES # (AUTO) 1.6 10^3/uL (1.5-3.5); LYMPHOCYTES % (AUTO) 27.2 %; MEAN CORPUSCULAR HGB CONC 31.4 g/dL (32.0-36.0); MEAN CORPUSCULAR VOLUME 86.1 fL (81.0-99.0); MEAN PLATELET VOLUME 10.5 fL (7.9-10.8); MONOCYTES # (AUTO) 0.4 10^3/uL (0.0-1.0); MONOCYTES % (AUTO) 6.3 %; NEUTROPHILS # (AUTO) 3.6 10^3/uL (1.5-6.6); NEUTROPHILS % (AUTO) 59.6 %; PLT - PLATELET COUNT 350 10^3/uL (130-450); RED BLOOD COUNT 4.52 10^6/uL (4.20-5.40); RED CELL DISTRIBUTION WIDTH 13.5 % (12.0-15.0)
[2019-04-29 18:18] LABS: CREATININE,URINE 112.9 mg/dL; MICROALBUM/CREATININE RATIO,UR 27.5 ug/mg (<30.0); MICROALBUMIN,URINE 3.1 mg/dL (0-300.0)
[2019-04-29 18:26] LABS: % IRON SATURATION 15 % (20-50); IRON 64 ug/dL (28-170); TOTAL IRON BINDING CAPACITY 430 ug/dL (250-450); TRANSFERRIN 307 mg/dL (192-382)
== END 2019-04-29 13:52 | disposition home or self-care (01) ==
LOC: LAB.S 13:51
PROVIDERS: ATTEND Registered Nurse
DX: E11.9 Type 2 diabetes mellitus without complications (principal); D50.9 Iron deficiency anemia, unspecified
CPT/HCPCS: 36415; 82043; 82570; 83540; 84466; 85025

== ENCOUNTER 2019-06-24 10:35 | Outpatient (CLI) | payer MEDICAID ==
--- NOTE | 2019-07-02 13:00 | Mammography Report ---
Reason: ROUTINE MAMMO Procedure Date: 06/24/2019 Accession Number: [id number] / [id number] Procedure: TAO - Screening Mammo w/John CPT Code: Final Report FULL RESULT: EXAM: Screening Mammo w/John DATE: 06/24/2019 11:20 AM CLINICAL HISTORY: Screening encounter. History of nulliparity. Family history of breast cancer in the sister at the age of 40. TECHNIQUE: (B) - Bilateral CC and MLO views were obtained. COMPARISON: 01/12/2016 through 09/02/2010. PARENCHYMAL PATTERN: (A) - The breast(s) demonstrate(s) scattered fibroglandular densities. FINDINGS: There are no suspicious masses, calcifications, or areas of distortion. IMPRESSION: Negative examination. BI-RADS category 1. RECOMMENDATION: (ANNUAL) - Recommend routine annual screening mammography. BI-RADS CATEGORY: (1) - Negative. STANDARD QUALIFYING STATEMENTS: 1. This examination was not reviewed with the aid of Computer-Aided Detection (CAD). 2. A negative or benign imaging report should not preclude biopsy if clinically suspicious findings are present. 3. Dense breasts may obscure an underlying neoplasm. 4. This examination was reviewed with the aid of 3D breast imaging (tomosynthesis).
== END 2019-06-24 10:36 | disposition home or self-care (01) ==
LOC: DI 10:35
PROVIDERS: ATTEND Registered Nurse
DX: Z12.31 Encounter for screening mammogram for malignant neoplasm of breast (principal); Z80.3 Family history of malignant neoplasm of breast
CPT/HCPCS: 77063; 77067

== ENCOUNTER 2019-09-06 09:25 | Outpatient (CLI) | payer MEDICAID ==
[2019-09-06 13:20] LABS: BASOPHILS # (AUTO) 0.1 10^3/uL (0.0-0.1); BASOPHILS % (AUTO) 0.8 %; EOSINOPHILS # (AUTO) 0.4 10^3/uL (0.0-0.7); EOSINOPHILS % (AUTO) 4.6 %; HGB - HEMOGLOBIN 12.5 g/dL (12.0-16.0); LYMPHOCYTES # (AUTO) 2.2 10^3/uL (1.5-3.5); LYMPHOCYTES % (AUTO) 28.8 %; MEAN CORPUSCULAR HEMOGLOBIN 27.5 pg (27.0-31.0); MEAN CORPUSCULAR HGB CONC 31.8 g/dL (32.0-36.0); MEAN CORPUSCULAR VOLUME 86.4 fL (81.0-99.0); MEAN PLATELET VOLUME 10.6 fL (7.9-10.8); MONOCYTES # (AUTO) 0.5 10^3/uL (0.0-1.0); MONOCYTES % (AUTO) 7.1 %; NEUTROPHILS # (AUTO) 4.4 10^3/uL (1.5-6.6); NEUTROPHILS % (AUTO) 58.2 %; PLT - PLATELET COUNT 377 10^3/uL (130-450); RED BLOOD COUNT 4.55 10^6/uL (4.20-5.40); RED CELL DISTRIBUTION WIDTH 13.9 % (12.0-15.0); WHITE BLOOD COUNT 7.6 x10^3/uL (4.8-10.8)
[2019-09-06 13:21] LABS: CREATININE,URINE 199.1 mg/dL; MICROALBUM/CREATININE RATIO,UR 17.1 ug/mg (<30.0); MICROALBUMIN,URINE 3.4 mg/dL (0-300.0)
[2019-09-06 13:44] LABS: HB2 TOTAL 13.2 g/dL; HEMOGLOBIN A1C 0.59 g/dL; HEMOGLOBIN A1C % 6.2 % (4.6-6.2)
[2019-09-06 14:10] LABS: FERRITIN 23.5 ng/mL (11.0-306.8)
[2019-09-06 14:15] LABS: FOLATE 13.56 ng/mL (5.90 - >24.8)
[2019-09-06 14:16] LABS: % IRON SATURATION 22 % (20-50); ALBUMIN 4.1 g/dL (3.2-5.5); ALBUMIN/GLOBULIN RATIO 1.2 (1.0-2.2); ALKALINE PHOSPHATASE 94 IU/L (42-121); ALT ALANINE AMINOTRANSFERASE 22 IU/L (10-60); AST ASPARTATE AMINOTRANSFERASE 20 IU/L (10-42); BILIRUBIN,TOTAL 0.8 mg/dL (0.2-1.0); BUN - BLOOD UREA NITROGEN 22 mg/dL (6-20); CALCIUM 9.3 mg/dL (8.5-10.3); CARBON DIOXIDE - CO2 23 mmol/L (21-32); CHLORIDE 106 mmol/L (101-111); CHOL/HDL RATIO 3.5 (<4.4); CHOLESTEROL 135 mg/dL; GLUCOSE 163 mg/dL (70-100); HDL CHOLESTEROL 39 mg/dL; IRON 85 ug/dL (28-170); LDL CHOLESTEROL,CALCULATED 56 mg/dL; LDL/HDL RATIO 1.4 (<4.4); SODIUM 137 mmol/L (135-145); TOTAL IRON BINDING CAPACITY 388 ug/dL (250-450); TOTAL PROTEIN 7.4 g/dL (6.7-8.2); TRANSFERRIN 277 mg/dL (192-382); VLDL CHOLESTEROL 40 mg/dL
== END 2019-09-06 23:59 | disposition home or self-care (01) ==
LOC: LAB.WCP 09:25
PROVIDERS: ATTEND Family Medicine
DX: E11.9 Type 2 diabetes mellitus without complications (principal); D64.9 Anemia, unspecified
CPT/HCPCS: 36415; 80053; 80061; 82043; 82570; 82607; 82728; 82746; 83036; 83540; 83721; 84443; 84466; 85025

== ENCOUNTER 2019-11-21 19:46 | Outpatient (CLI) | payer MEDICAID | END 2019-11-21 19:47 | disposition home or self-care (01) | LOC: COV 19:46 | PROVIDERS: ATTEND Family Medicine | DX: R05 Cough (principal); R53.83 Other fatigue; R19.7 Diarrhea, unspecified; J02.9 Acute pharyngitis, unspecified; Z20.828 Contact with and (suspected) exposure to other viral communicable diseases ==

== ENCOUNTER 2020-03-30 07:00 | Outpatient (CLI) | payer MEDICAID | END 2020-03-30 23:59 | disposition home or self-care (01) | LOC: LAB.R 07:00 | PROVIDERS: ATTEND Physician Assistant | DX: R05 Cough (principal); Z20.828 Contact with and (suspected) exposure to other viral communicable diseases; E11.9 Type 2 diabetes mellitus without complications | CPT/HCPCS: 80048; 83036 ==

== ENCOUNTER 2020-03-30 14:27 | Outpatient (CLI) | payer MEDICAID ==
[2020-03-30 20:19] LABS: CALCIUM 9.4 mg/dL (8.5-10.3); CREATININE 0.9 mg/dL (0.4-1.0)
[2020-03-30 20:41] LABS: HEMOGLOBIN A1c% 6.7 % (4.27-6.07)
== END 2020-03-30 14:28 | disposition home or self-care (01) ==
LOC: LAB.S 14:27
PROVIDERS: ATTEND Registered Nurse
DX: E11.9 Type 2 diabetes mellitus without complications (principal)
CPT/HCPCS: 80048; 83036

== ENCOUNTER 2020-04-09 15:21 | Outpatient (CLI) | payer MEDICAID ==
--- NOTE | 2020-04-09 15:39 | XRAY Report ---
PROCEDURE: Chest 2 View X-Ray INDICATIONS: COUGH TECHNIQUE: 2 view(s) of the chest. COMPARISON: None. FINDINGS: Surgical changes and devices: None. Lungs and pleura: No pleural effusions or pneumothorax. Lungs are clear. Mediastinum: Mediastinal contours are normal. Heart size is normal. Bones and chest wall: No suspicious bony abnormalities. Soft tissues appear unremarkable. IMPRESSION: No evidence acute pulmonary process. Reviewed by: Juan M Stanley MD on 04/09/2020 3:38 PM [facility] Approved by: Juan M Stanley MD on 04/09/2020 3:38 PM [facility] Station ID: [id number]
== END 2020-04-09 23:59 | disposition home or self-care (01) ==
LOC: DI.S 15:21
PROVIDERS: ATTEND Physician Assistant Medical
DX: R05 Cough (principal)

== ENCOUNTER 2020-04-09 15:27 | Outpatient (CLI) | payer MEDICAID ==
[2020-04-09 20:02] LABS: BASOPHILS # (AUTO) 0.1 10^3/uL (0.0-0.1); BASOPHILS % (AUTO) 0.6 %; EOSINOPHILS # (AUTO) 0.3 10^3/uL (0.0-0.7); EOSINOPHILS % (AUTO) 3.1 %; HGB - HEMOGLOBIN 12.9 g/dL (12.0-16.0); LYMPHOCYTES % (AUTO) 20.7 %; MEAN CORPUSCULAR HEMOGLOBIN 27.3 pg (27.0-31.0); MEAN CORPUSCULAR HGB CONC 31.1 g/dL (32.0-36.0); MEAN CORPUSCULAR VOLUME 87.9 fL (81.0-99.0); MEAN PLATELET VOLUME 10.9 fL (7.9-10.8); MONOCYTES # (AUTO) 0.7 10^3/uL (0.0-1.0); MONOCYTES % (AUTO) 7.6 %; NEUTROPHILS # (AUTO) 6.6 10^3/uL (1.5-6.6); NEUTROPHILS % (AUTO) 67.7 %; PLT - PLATELET COUNT 393 10^3/uL (130-450); RED BLOOD COUNT 4.72 10^6/uL (4.20-5.40); RED CELL DISTRIBUTION WIDTH 13.6 % (12.0-15.0); WHITE BLOOD COUNT 9.7 x10^3/uL (4.8-10.8)
== END 2020-04-09 15:28 | disposition home or self-care (01) ==
LOC: LAB.S 15:27
PROVIDERS: ATTEND Physician Assistant Medical
DX: D64.9 Anemia, unspecified (principal); R53.83 Other fatigue
CPT/HCPCS: 36415; 84443; 85025

== ENCOUNTER 2020-07-08 14:43 | Outpatient (CLI) | payer MEDICAID ==
[2020-07-08 15:20] VITALS: BP 111/70
--- NOTE | 2020-07-08 15:20 | SLEEP CARE CONSULTATION ---
Information from patient questionnaire entered by Yanet Amaral. I have reviewed and concur with the information entered by Yanet Amaral. This document represents the service I personally performed and the decisions made by , Leila Starks ARNP. History of Present Illness Service Date and Time: 07/08/2020 1443 Previous diagnosis: Mild, Obstructive Sleep Apnea-Hypopnea Syndrome AHI: 11.1 Reason for follow up: annual (Last seen 06/2019) Equipment type: CPAP Equipment obtained from: [facility] Mask style: Nasal ([place]) Backup mask available: Yes (old mask) Last cushion change: 2 months Prior sleep studies: Yes Year and Where: 2017 [facility] additional information: YASIR PETERSON was diagnosed to have mild, AHI 11.1, obstructive sleep apnea- hypopnea syndrome and returned today for CPAP therapy annual follow-up. CPAP Compliance Data - Data Reviewed with Patient Average duration of nightly device use: 7 h 19 min Compliance rate %: 93.3 Current pressure setting (cmH2O): 4-6 Heated hose settin Average residual AHI: 1.3 Average large leak: 38 sec Subjective Missed days of use due to: reports: other (power outages) Patient concerns: denies: aerophagia, mask discomfort, air blowing in eyes, mask leak noise, condensation in mask/hose, nasal congestion, dry mouth, nose, throat, epistaxis, other Observed to snore while using device: No Current pressure setting perceived as: comfortable On therapy, patient: reports: sleeping better, awakening more refreshed, being more awake and alert during the day, more rested overall. denies: drowsiness while driving Initial [place] Sleepiness Scale score: 3 (in 2017) Current [place] Sleepiness Scale score: 6 Allergies and Home Medications Home medication list reviewed: Yes (no new medications) Review of Systems Review of systems same as previous: Yes (no changes) Physical Exam Blood Pressure: 111/70 Cuff size: wrist Heart Rate: 99 O2 Saturation: 97 Height: 5 ft 7 in Weight: 268 lb Body Mass Index: 42.0 BMI Classification: Morbidly Obese Impression and Plan 1. Obstructive Sleep Apnea-Hypopnea Syndrome, mild, with good treatment compliance and good apnea control. On CPAP therapy, the patient has better sleep quality and is more rested overall. She has been with [facility] and is not able to get supplies. I informed her that they no longer deal in CPAP supplies and we can transfer her to another DME supplier. I will have my administrative support coordinator inform of DME options. A DWO prescription will then be made. Patient advised to contact this office if further supply problems. Patient's apnea severity and rationale for treatment to reduce apnea, improve sleep quality and reduce cardiovascular and cerebrovascular events was reviewed. I also reviewed the benefit of consistent device use of CPAP for hypertension, diabetes, and depression/anxiety. * Continue autoCPAP pressure at 4-6 cmH2O * Transfer DME * Notify me if snoring with mask or feeling that the pressure is too much or too little * Attempt to lose weight * Call this office if any problems using CPAP * Return for follow up in 1 year, or sooner if concerns arise Counseling Topics: Spare mask, Weight loss health impact Visit Type: In Office Time Spent with Patient (minutes): 21 Provider Statement: I spent 100% of the Face to Face Visit with the patient with greater than 50% spent counseling the patient and coordination of care.
== END 2020-07-08 14:44 | disposition home or self-care (01) ==
LOC: SC 14:43
PROVIDERS: ATTEND Nurse Practitioner Family
DX: G47.33 Obstructive sleep apnea (adult) (pediatric) (principal); E66.01 Morbid (severe) obesity due to excess calories; Z68.41 Body mass index [BMI] 40.0-44.9, adult
CPT/HCPCS: 99212; 99213

== ENCOUNTER 2020-11-16 15:20 | Outpatient (CLI) | payer MEDICAID ==
[2020-11-16 20:10] LABS: BASOPHILS # (AUTO) 0.1 10^3/uL (0.0-0.1); BASOPHILS % (AUTO) 0.7 %; EOSINOPHILS # (AUTO) 0.5 10^3/uL (0.0-0.7); EOSINOPHILS % (AUTO) 6.3 %; HCT - HEMATOCRIT 38.6 % (37.0-47.0); HGB - HEMOGLOBIN 12.2 g/dL (12.0-16.0); LYMPHOCYTES % (AUTO) 28.4 %; MEAN CORPUSCULAR HEMOGLOBIN 27.3 pg (27.0-31.0); MEAN CORPUSCULAR HGB CONC 31.6 g/dL (32.0-36.0); MEAN CORPUSCULAR VOLUME 86.4 fL (81.0-99.0); MONOCYTES # (AUTO) 0.5 10^3/uL (0.0-1.0); MONOCYTES % (AUTO) 7.2 %; NEUTROPHILS # (AUTO) 4.1 10^3/uL (1.5-6.6); PLT - PLATELET COUNT 363 10^3/uL (130-450); RED BLOOD COUNT 4.47 10^6/uL (4.20-5.40); RED CELL DISTRIBUTION WIDTH 14.2 % (12.0-15.0); WHITE BLOOD COUNT 7.2 x10^3/uL (4.8-10.8)
[2020-11-16 20:14] LABS: ESTIMATED AVERAGE GLUCOSE 171 mg/dL (70-100); HEMOGLOBIN A1c% 7.6 % (4.27-6.07)
[2020-11-16 20:30] LABS: ALBUMIN 4.1 g/dL (3.2-5.5); ALBUMIN/GLOBULIN RATIO 1.3 (1.0-2.2); ALKALINE PHOSPHATASE 85 IU/L (42-121); ALT ALANINE AMINOTRANSFERASE 35 IU/L (10-60); AST ASPARTATE AMINOTRANSFERASE 35 IU/L (10-42); BILIRUBIN,TOTAL 1.2 mg/dL (0.2-1.0); BUN - BLOOD UREA NITROGEN 13 mg/dL (6-20); CALCIUM 8.8 mg/dL (8.5-10.3); CARBON DIOXIDE - CO2 23 mmol/L (21-32); CHLORIDE 102 mmol/L (101-111); CHOL/HDL RATIO 3.7 (<4.4); CHOLESTEROL 140 mg/dL; CREATININE 0.9 mg/dL (0.4-1.0); GFR - MDRD 64 (>89); GLUCOSE 152 mg/dL (70-100); HDL CHOLESTEROL 38 mg/dL; LDL CHOLESTEROL,CALCULATED 47 mg/dL; LDL/HDL RATIO 1.2 (<4.4); SODIUM 136 mmol/L (135-145); TOTAL PROTEIN 7.2 g/dL (6.7-8.2); TRIGLYCERIDES 273 mg/dL; VLDL CHOLESTEROL 55 mg/dL
[2020-11-16 20:31] LABS: CREATININE,URINE 116.1 mg/dL; MICROALBUM/CREATININE RATIO,UR 63.7 ug/mg (<30.0); MICROALBUMIN,URINE 7.4 mg/dL (0-300.0)
[2020-11-16 20:41] LABS: THYROID STIMULATING HORMONE 2.36 uIU/mL (0.34-5.60)
== END 2020-11-16 15:21 | disposition home or self-care (01) ==
LOC: LAB.S 15:20
PROVIDERS: ATTEND Registered Nurse
DX: Z00.00 Encounter for general adult medical examination without abnormal findings (principal); E03.9 Hypothyroidism, unspecified; E78.5 Hyperlipidemia, unspecified; E11.9 Type 2 diabetes mellitus without complications; G47.33 Obstructive sleep apnea (adult) (pediatric); F32.9 Major depressive disorder, single episode, unspecified
CPT/HCPCS: 36415; 80053; 80061; 82043; 82570; 83036; 83721; 84443; 85025; 86704

== ENCOUNTER 2021-02-03 11:27 | Outpatient (CLI) | payer MEDICAID ==
[2021-02-03 15:37] LABS: CREATININE 0.9 mg/dL (0.4-1.0); POTASSIUM 3.9 mmol/L (3.5-5.0)
[2021-02-03 20:32] LABS: ESTIMATED AVERAGE GLUCOSE 154 mg/dL (70-100)
== END 2021-02-03 11:28 | disposition home or self-care (01) ==
LOC: LAB.S 11:27
PROVIDERS: ATTEND Registered Nurse
DX: E11.9 Type 2 diabetes mellitus without complications (principal)
CPT/HCPCS: 36415; 80048; 83036

== ENCOUNTER 2021-03-24 13:43 | Outpatient (CLI) | payer MEDICAID ==
[2021-03-24 20:06] LABS: CALCIUM 9.1 mg/dL (8.5-10.3); CREATININE 0.9 mg/dL (0.4-1.0); POTASSIUM 3.9 mmol/L (3.5-5.0)
[2021-03-24 20:12] LABS: CREATININE,URINE 223.1 mg/dL; MICROALBUM/CREATININE RATIO,UR 28.7 ug/mg (<30.0); MICROALBUMIN,URINE 6.4 mg/dL (0-300.0)
== END 2021-03-24 13:44 | disposition home or self-care (01) ==
LOC: LAB.S 13:43
PROVIDERS: ATTEND Registered Nurse
DX: E11.9 Type 2 diabetes mellitus without complications (principal)
CPT/HCPCS: 36415; 80048; 82043; 82570

== ENCOUNTER 2021-05-26 12:34 | Outpatient (CLI) | payer MEDICAID ==
[2021-05-26 20:10] LABS: ESTIMATED AVERAGE GLUCOSE 146 mg/dL (70-100); HEMOGLOBIN A1c% 6.7 % (4.27-6.07)
== END 2021-05-26 12:35 | disposition home or self-care (01) ==
LOC: LAB.S 12:34
PROVIDERS: ATTEND Registered Nurse
DX: E11.9 Type 2 diabetes mellitus without complications (principal)
CPT/HCPCS: 36415; 83036

== ENCOUNTER 2021-09-02 14:18 | Outpatient (CLI) | payer MEDICAID ==
[2021-09-02 20:57] LABS: ESTIMATED AVERAGE GLUCOSE 128 mg/dL (70-100); HEMOGLOBIN A1c% 6.1 % (4.27-6.07)
== END 2021-09-02 14:19 | disposition home or self-care (01) ==
LOC: LAB.S 14:18
PROVIDERS: ATTEND Nurse Practitioner
DX: E11.65 Type 2 diabetes mellitus with hyperglycemia (principal)
CPT/HCPCS: 36415; 83036; 84443

== ENCOUNTER 2021-11-19 08:00 | Outpatient (CLI) | payer MEDICAID ==
[2021-11-19 20:00] LABS: CALCIUM 9.5 mg/dL (8.5-10.3); CREATININE 1.8 mg/dL (0.4-1.0); POTASSIUM 3.9 mmol/L (3.5-5.0)
[2021-11-19 20:35] LABS: ESTIMATED AVERAGE GLUCOSE 126 mg/dL (70-100)
== END 2021-11-19 23:59 | disposition home or self-care (01) ==
LOC: LAB.S 08:00
PROVIDERS: ATTEND Nurse Practitioner
DX: E11.65 Type 2 diabetes mellitus with hyperglycemia (principal)
CPT/HCPCS: 36415; 80048; 83036

== ENCOUNTER 2021-11-22 10:28 | Outpatient (CLI) | payer MEDICAID ==
[2021-11-22 15:20] LABS: CALCIUM 9.6 mg/dL (8.5-10.3); CREATININE 1.3 mg/dL (0.4-1.0); POTASSIUM 3.9 mmol/L (3.5-5.0)
[2021-11-22 15:27] LABS: BILIRUBIN,URINE NEGATIVE (NEGATIVE); GLUCOSE, URINE (UA) NEGATIVE (NEGATIVE); KETONES,URINE (UA) NEGATIVE (NEGATIVE); LEUKOCYTE ESTERASE, URINE TRACE (NEGATIVE); NITRITE,URINE NEGATIVE (NEGATIVE); OCCULT BLOOD,URINE NEGATIVE (NEGATIVE); PH,URINE 5.5 PH (5.0-7.5); PROTEIN,URINE NEGATIVE (NEGATIVE); UROBILINOGEN,URINE 0.2 (NORMAL) E.U./dL (NORMAL)
[2021-11-22 16:23] LABS: CLARITY,URINE CLOUDY (CLEAR)
== END 2021-11-22 10:29 | disposition home or self-care (01) ==
LOC: LAB.S 10:28
PROVIDERS: ATTEND Registered Nurse
DX: N95.1 Menopausal and female climacteric states (principal); R94.4 Abnormal results of kidney function studies
CPT/HCPCS: 36415; 80048; 81003

== ENCOUNTER 2021-11-23 15:38 | Outpatient (CLI) | payer MEDICAID ==
--- NOTE | 2021-11-23 17:34 | Ultrasound Report ---
PROCEDURE: Abdomen Complete INDICATIONS: RIGHT LOWER QUAD ABD SWELLING TECHNIQUE: Real-time scanning was performed of the abdominal and retroperitoneal organs, with image documentatio n. COMPARISON: None. FINDINGS: Liver: The liver is normal size. The parenchyma is diffusely heterogeneous and coarse. Several rounde d areas of echogenic shadowing within liver parenchyma ranging in size from 1.4 to 1.9 cm. There is a partially exophytic mildly echogenic lesion at the inferior anterior portion of the liver measuring 2.6 x 2.1 x 2.8 cm. There is dense shadowing behind this lesion. Gallbladder: The gallbladder is normal without stones, sludge, wall thickening, pericholecystic fluid , or sonographic Francisco sign. The wall measures 1.3 mm in thickness. Biliary ducts: Intrahepatic bile ducts are non-dilated. Extrahepatic bile duct caliber measures 3.4 mm. Normal is 6-7 mm or less in diameter, or 10 mm or less post-cholecystectomy. Pancreas: Visualized portions of the pancreas are sonographically normal. The tail is obscured by b owel gas. Spleen: Spleen is normal in size and homogeneous in echotexture. Kidneys: Kidneys are normal in size and echotexture. Right kidney measures 11.7 cm long; left kidne y measures 10.3 cm long. No hydronephrosis or nephrolithiasis. No solid masses. Aorta: Visualized aorta is normal in caliber at less than 3 cm. Iliacs: Proximal common iliac arteries are normal in caliber at less than 2.5 cm. IVC: Intrahepatic inferior vena cava is patent. Miscellaneous: No free abdominal fluid. In the area of right lower quadrant palpable abnormality, t here is an ovoid vascular mass measuring 5.2 x 4.3 x 2.6 cm. There is low resistance arterial flow wi thin this mass. In the region of the inguinal canal, there is another nodule with similar morphology. IMPRESSION: 1. Right lower quadrant area of concern corresponds to 5.2 cm subcutaneous mass with vascular flow nichole spicious for an enlarged, abnormal lymph node. 2. Other abnormal right inguinal lymph nodes are identified. 3. There are coarse calcifications scattered in the liver and one partially exophytic echogenic mass, potentially fat deposition, granuloma, hemangioma, or other. Contrast-enhanced cross-sectional imagi ng is recommended on a routine basis for further evaluation. 4. Preliminary results given by the voice instructor to the ordering provider immediately following the st udy. Reviewed by: Venita Booker MD on 11/23/2021 5:33 PM PDT Approved by: Venita Booker MD on 11/23/2021 5:33 PM PDT Station ID: [id number]
--- NOTE | 2021-11-23 17:35 | Ultrasound Report ---
PROCEDURE: Pelvic w/Transvaginal INDICATIONS: RIGHT LOWER QUAD ABD SWELLING TECHNIQUE: Real-time scanning was performed of the pelvic organs, with image documentation. Additional endovagi nal scanning was necessary due to incomplete visualization of the adnexal and endometrial structures by transabdominal scanning. COMPARISON: None. FINDINGS: Uterus: Uterus is anteverted and normal in size at 6.2 x 2.1 x 3.3 cm. The myometrium is homogeneou s. The endometrium measures 1.9 mm in combined thickness. Ovaries: The right ovary measures 2.2 x 0.7 x 1.2 cm, with a calculated ovarian volume of 1.0 cc. T he left ovary measures 1.8 x 0.8 x 0.7 cm, with a calculated ovarian volume of 0.6 cc. The ovaries h ave a normal sonographic appearance. Less than 12 follicles can be seen in each ovary. No adnexal m asses are seen. Other: No pathologic free abdominal or pelvic fluid. IMPRESSION: Unremarkable exam. Reviewed by: Georgiana Cano MD on 11/23/2021 5:34 PM PDT Approved by: Georgiana Cano MD on 11/23/2021 5:34 PM PDT Station ID: [id number]
== END 2021-11-23 15:39 | disposition home or self-care (01) ==
LOC: DI 15:38
PROVIDERS: ATTEND Registered Nurse
DX: R19.03 Right lower quadrant abdominal swelling, mass and lump (principal); E16.2 Hypoglycemia, unspecified; R94.4 Abnormal results of kidney function studies; N95.1 Menopausal and female climacteric states; R59.0 Localized enlarged lymph nodes; R16.0 Hepatomegaly, not elsewhere classified; K76.89 Other specified diseases of liver

== ENCOUNTER 2021-12-01 13:08 | Outpatient (CLI) | payer MEDICAID ==
[2021-12-01 13:38] VITALS: BP 112/76
--- NOTE | 2021-12-01 13:38 | SLEEP CARE CONSULTATION ---
Information from patient questionnaire entered by Carlos Enrique Lui MA. I have reviewed and concur with the information entered by Carlos Enrique Lui MA. This document represents the service I personally performed and the decisions made by , Leila Starks ARNP. History of Present Illness Service Date and Time: 12/01/2021 1308 Previous diagnosis: Mild, Obstructive Sleep Apnea-Hypopnea Syndrome AHI: 11.1 Reason for follow up: annual (LAST , SHRUTHI, [place] 04/03/2017, NEW RX? ) Equipment type: CPAP Equipment obtained from: [employer] (getting supplies as needed) Mask style: Nasal (Eson) Backup mask available: Yes (old mask) Last cushion change: 1+ month Prior sleep studies: Yes Year and Where: 2016 [facility] HPI additional information: YASIR PETERSON was diagnosed to have mild, AHI 11.1, obstructive sleep apnea-hyp opnea syndrome and returned today for CPAP therapy annual follow-up. Sleep Study - Results Prior sleep studies: Yes Year and Where: 2016 [facility] CPAP Compliance Data - Data Reviewed with Patient Average duration of nightly device use: 7 HOURS 20 MINUTES Compliance rate %: 100 (09/01/21-11/29/21) Current pressure setting (cmH2O): 13 Humidity settin Heated hose settin Average residual AHI: 2.7 Average large leak: 4 mins 53 secs Subjective Missed days of use due to: reports: other (POWER OUTAGES) Patient concerns: denies: aerophagia, mask discomfort, air blowing in eyes, mask leak noise, condensation in mask/hose, nasal congestion, dry mouth, nose, throat, epistaxis, other Observed to snore while using device: No Current pressure setting perceived as: comfortable On therapy, patient: reports: sleeping better, awakening more refreshed, being more awake and alert during the day, more rested overall. denies: drowsiness while driving Initial [place] Sleepiness Scale score: 3 (in 2017) Current [place] Sleepiness Scale score: 3 (12/01/2021) Allergies and Home Medications Known drug allergies: No (NKA) Drug allergies reviewed: Yes Home medication list reviewed: Yes (no changes) Allergy and home medication list: Allergies cephalexin [From Keflex] Adverse Reaction (Verified 10/13/17 18:32) Itching Review of Systems Review of systems same as previous: Yes (no changes) Physical Exam Vital signs obtained and entered by: HAI LAUREN Blood Pressure: 112/76 (RESP 20, PULSE 86, RIGHT) Cuff size: wrist Heart Rate: 86 O2 Saturation: 98 (MASK) Height: 5 ft 7 in Weight: 235 lb (CLOTHES) Body Mass Index: 36.8 BMI Classification: Obese Impression and Plan 1. Obstructive Sleep Apnea-Hypopnea Syndrome, mild, with good treatment compliance and good apnea control. On CPAP therapy, the patient has better sleep quality and is more rested overall. Patient has a DreamStation that she has registered for the [employer]. It appears that she last updated her device in 2016. The patients CPAP is over 5 years old and of reasonable use. Thus, the CPAP will be updated. A DWO prescription will be made. Compliance guidelines for new device and follow up discussed. Patient's apnea severity and rationale for treatment to reduce apnea, improve sleep quality and reduce cardiovascular and cerebrovascular events was reviewed. I also reviewed the benefit of consistent device use of CPAP for hypertension, diabetes, depression and anxiety. * Continue CPAP pressure at 13 cmH2O * Update machine * Update supplies as needed * Notify me if snoring with mask or feeling that the pressure is too much or too little * Call this office if any problems using CPAP * Return for follow up one month after obtaining new device, or sooner if concerns arise Counseling Topics: Spare mask, Weight loss health impact Visit Type: In Office Time Spent with Patient (minutes): 20 Provider Statement: I spent 100% of the Face to Face Visit with the patient with greater than 50% spent counseling the patient and coordination of care.
== END 2021-12-01 13:09 | disposition home or self-care (01) ==
LOC: SC 13:08
PROVIDERS: ATTEND Nurse Practitioner Family
DX: G47.33 Obstructive sleep apnea (adult) (pediatric) (principal); E66.9 Obesity, unspecified; Z68.36 Body mass index [BMI] 36.0-36.9, adult
CPT/HCPCS: 99212; 99213

== ENCOUNTER 2021-12-30 09:15 | Outpatient (CLI) | payer MEDICAID ==
[~2021-12-30 09:15] MED LIST: lidocaine 1% 20 ML MDV ONE
[2021-12-30] MEDS ORDERED: lidocaine 1% 20 ML MDV SUBQ ONE (10:45)
--- NOTE | 2021-12-30 15:34 | Ultrasound Report ---
PROCEDURE: Needle Bx Lymph Node INDICATIONS: INGUINAL MASS TECHNIQUE: The indications, alternatives, benefits, risks, and complications of the procedure were e xplained to the patient. Written informed consent was obtained and placed in the chart. Real-time sonography was utilized to choose the site for percutaneous lymph node sampling. The skin was prepped and draped in the usual sterile fashion. 1% lidocaine was infiltrated down to the site o f interest. Serial hypodermic needles were then advanced into the site of interest under direct sono graphic visualization, and serial needle aspirates were obtained. The needles were then withdrawn; a bandage was applied to the procedure site. COMPARISON: Ultrasound dated 11/23/2021 FINDINGS: Sample site(s): Right groin Needle: 18-gauge core biopsy needle Number of passes: 1 pass with the introducer trocar. A total of 5 core biopsies were obtained. Medications: 1% lidocaine for local anaesthesia. Complications: None. IMPRESSION: Successful ultrasound-guided biopsy of a right inguinal lymph node, with cytology results pending. Reviewed by: Sudheer Denise on 12/30/2021 3:33 PM PDT Approved by: Sudheer Denise on 12/30/2021 3:33 PM PDT Station ID: [id number]
== END 2021-12-30 09:16 | disposition home or self-care (01) ==
LOC: DI 09:15
PROVIDERS: ATTEND Registered Nurse
DX: I88.8 Other nonspecific lymphadenitis (principal)
CPT/HCPCS: 38505

== ENCOUNTER 2022-01-14 13:50 | Outpatient (CLI) | payer MEDICAID | END 2022-01-14 13:51 | disposition short-term general hospital (02) | LOC: EMS 13:50 | DX: I48.91 Unspecified atrial fibrillation (principal); R53.1 Weakness; R63.0 Anorexia | CPT/HCPCS: A0425; A0427; A0999 ==

== ENCOUNTER 2022-02-08 10:19 | Outpatient (CLI) | payer MEDICAID | END 2022-02-08 10:20 | disposition home or self-care (01) | LOC: LAB.S 10:19 | PROVIDERS: ATTEND Registered Nurse | DX: Z53.9 Procedure and treatment not carried out, unspecified reason (principal) ==

== ENCOUNTER 2022-02-11 10:16 | Outpatient (CLI) | payer MEDICAID ==
[2022-02-11 15:17] LABS: CALCIUM 9.3 mg/dL (8.5-10.3); CREATININE 1.2 mg/dL (0.4-1.0); POTASSIUM 3.7 mmol/L (3.5-5.0)
== END 2022-02-11 10:17 | disposition home or self-care (01) ==
LOC: LAB.S 10:16
PROVIDERS: ATTEND Nurse Practitioner
DX: E11.65 Type 2 diabetes mellitus with hyperglycemia (principal)
CPT/HCPCS: 36415; 80048

== ENCOUNTER 2022-02-22 13:23 | Outpatient (CLI) | payer MEDICAID | END 2022-02-22 13:24 | disposition home or self-care (01) | LOC: RT 13:23 | PROVIDERS: ATTEND Internal Medicine Hematology & Oncology | DX: C81.2 Mixed cellularity Hodgkin lymphoma (principal) | CPT/HCPCS: 94010; 94729 ==

== ENCOUNTER 2022-03-06 21:57 | Outpatient (CLI) | payer MEDICAID | END 2022-03-06 21:58 | disposition critical access hospital (66) | LOC: EMS 21:57 | DX: R55 Syncope and collapse (principal) | CPT/HCPCS: A0425; A0429; A0999 ==

== ENCOUNTER 2022-03-06 22:33 | Emergency (ER) | payer MEDICAID ==
--- NOTE | 2022-03-06 22:55 | ED Physician Documentation ---
PD HPI SYNCOPE - Stated complaint Stated Complaint: SYNCOPE - Chief complaint Chief Complaint: Neuro - History obtained from History obtained from: Patient - History of Present Illness Witnessed: Witnessed Timing - onset: How many hours ago (approximately 1 hour [employer]) Duration: Minutes Preceding symptoms: Light headed Associated symptoms: Diaphoresis. No: Headache, Vision changes, Chest pain, Palpitations, Nausea / vomiting Contributing factors: Decreased PO intake. No: Noxious stimulae, Emotional upset, Just stood up Injury occurred: None Pain level max: 0 Pain level now: 0 Similar symptoms before: Has not had sx before - Additional information Additional information: patient presents after having syncopal episode tonight. She is amnestic for the event and is asymptomatic by the time of this H+P. Patient's friend is in ED at bedside and provides the part of HPI for which patient is amnestic. Patient is AAOx3 and NAD and thus also able to contribute to HPI/ROS. Patient had chemotherapy 2 days ago and subsequently has been sleeping most of the time since the chemotherapy. She says she has had considerably decreased PO intake since chemo; this is not for lack of appetite, but because she is sleeping so much. Tonight, while at friends house , patient was seated and in NAD when she became lightheaded. She was still seated at the time. She then lost consciousness; friend says patient became unresponsive, pale, diaphoretic. Within a few minutes, patient slowly began to respond and gradually returned to baseline ment ation. Denies h/o similar episodes. No injury; patient was in chair both before and after the syncopal event Review of Systems Constitutional: reports: Fatigue. denies: Fever, Chills, Sweats Cardiac: reports: Reviewed and negative Respiratory: reports: Reviewed and negative GI: reports: Reviewed and negative : denies: Incontinent Neurologic: reports: Syncope, LOC. denies: Generalized weakness, Focal weakness, Numbness, Seizure, Confused, Headache, Head injury PD PAST MEDICAL HISTORY - Past Medical History Past Medical History: Yes Cardiovascular: Hypertension, High cholesterol Respiratory: Sleep apnea, CPAP use Endocrine/Autoimmune: Type 2 diabetes, HyPOthyroidism GI: None, GI bleed : None HEENT: None Psych: Depression Musculoskeletal: None Derm: Psoriasis, Other - Past Surgical History Past Surgical History: Yes General: Colonoscopy Ortho: Amputation, Other - Present Medications Home Medications: Ambulatory Orders Medication Instructions Recorded Confirmed Atorvastatin [Lipitor] 20 mg ORAL DAILY 04/17/17 02/21/22 Ferrous Sulfate 324 mg ORAL BID 04/17/17 02/21/22 Levothyroxine [Synthroid] 75 mcg ORAL DAILY 04/17/17 02/21/22 amLODIPine [Norvasc] 5 mg ORAL DAILY 04/17/17 02/21/22 metFORMIN [Glucophage] 1,000 mg ORAL BID 04/17/17 02/21/22 Acyclovir 400 mg PO DAILY 02/18/22 02/21/22 Metoprolol Succinate [Toprol Xl] 12.5 mg PO DAILY 02/18/22 03/04/22 lisinopriL [Zestril] 5 mg PO DAILY 02/18/22 02/21/22 OLANZapine [Zyprexa] 5 mg PO UD #12 tablet 02/21/22 Prochlorperazine Maleate 10 mg PO Q6HR PRN #30 tablet 02/21/22 ondansetron HCL [Ondansetron HCl] 8 mg PO BID PRN #30 tablet 02/21/22 Apixaban [Eliquis] 5 mg PO BID 03/04/22 03/04/22 - Allergies Allergies/Adverse Reactions: Allergies Allergy/AdvReac Type Severity Reaction Status Date / Time cephalexin [From Keflex] AdvReac Itching Verified 03/06/22 22:47 - Social History Does the pt smoke?: No Smoking Status: Never smoker Does the pt drink ETOH?: No Does the pt have substance abuse?: No - Immunizations Immunizations are current?: Yes - POLST Patient has POLST: Yes POLST Status: DNR PD ED PE NORMAL - Vitals Vital signs reviewed: Yes - General General: Alert and oriented X 3, No acute distress, Well developed/nourished - HEENT HEENT: Moist mucous membranes - Neck Neck: Supple, no meningeal sign - Cardiac Cardiac: RRR, No murmur, No gallop, No rub - Respiratory Respiratory: No respiratory distress, Clear bilaterally - Abdomen Abdomen: Soft, Non tender - Derm Derm: Normal color, Warm and dry - Neuro Neuro: Alert and oriented X 3, siderographist 2-12 intact, No motor deficit, No sensory deficit, Normal speech Eye Opening: Spontaneous Motor: Obeys Commands Verbal: Oriented GCS Score: 15 Results - Vitals Vitals: Oxygen O2 Source Room air - EKG (time done) No standard instances Rate: Rate (enter#) (68) Rhythm: NSR [place]: LAD Intervals: Normal [place] QRS: Normal Ischemia: Normal ST segments - Labs Labs: Laboratory Tests 03/06/22 03/06/22 03/06/22 23:06 23:06 23:06 WBC 6.9 RBC 3.21 L Hgb 9.0 L Hct 29.6 L MCV 92.2 MCH 28.0 MCHC 30.4 L RDW 22.2 H Plt Count 157 MPV 11.3 H Neut # (Auto) 6.1 Lymph # (Auto) 0.3 L Williamson # (Auto) 0.2 Eos # (Auto) 0.2 Baso # (Auto) 0.1 Absolute Nucleated RBC 0.00 Nucleated RBC % 0.0 Manual Slide Review Indicated WBC Morphology NORMAL APPEARANCE Platelet Estimate NORMAL (130-450,000) Platelet Morphology NORMAL APPEARANCE RBC Morph Micro Appear 2+ ANISOCYTOSIS Sodium 139 Potassium 3.8 Chloride 108 Carbon Dioxide 20 L Anion Gap 11.0 BUN 30 H Creatinine 1.1 H Estimated GFR (MDRD) 50 L Glucose 154 H Calcium 8.4 L Total Bilirubin 0.4 AST 30 ALT 22 Alkaline Phosphatase 67 Troponin I High Sens 5.7 Total Protein 5.9 L Albumin 3.6 Globulin 2.3 Albumin/Globulin Ratio 1.6 Lipase 44 PD MEDICAL DECISION MAKING - ED course Complexity details: reviewed results, re-evaluated patient, considered differential, d/w patient ED course: no new/concerning findings on tonight's tests including EKG and blood tests. Her hgb (9.0) is not significantly changed from her recent/previous draws, and bun/creatinine (30/1.1) also have no significant change compared to previous. hs-cTn is normal. She is given one liter NS IV bolus. Results d/w patient. Cause of her syncope is not apparent at this time. Return precautions discussed, instructed to contact her primary care provider to arrange for follow up/reevaluation, and consideration of possible further testing. Departure - Departure Disposition: 01 Home, Self Care Clinical Impression: Syncope Qualifiers: Syncope type: unspecified Qualified Code(s): R55 - Syncope and collapse Condition: Good Instructions: ED Fainting Unkn Cause Comments: The cause of your syncope (passing out) is not apparent at this time. Your vital signs are normal in the ER and the results of tonight's tests (including blood tests and EKG) are without concerning/diagnostic results. There are a few abnormalities on the blood tests but, as we discussed, they are not significantly different from previous results (such as hemoglobin of 9.0, creatinine (kidney test) 1.1). Discharge Date/Time: 03/07/22 00:28
[2022-03-06 23:23] LABS: BASOPHILS # (AUTO) 0.1 10^3/uL (0.0-0.1); BASOPHILS % (AUTO) 0.7 %; EOSINOPHILS # (AUTO) 0.2 10^3/uL (0.0-0.7); EOSINOPHILS % (AUTO) 2.5 %; HCT - HEMATOCRIT 29.6 % (37.0-47.0); LYMPHOCYTES # (AUTO) 0.3 10^3/uL (1.5-3.5); LYMPHOCYTES % (AUTO) 3.9 %; MEAN CORPUSCULAR HGB CONC 30.4 g/dL (32.0-36.0); MEAN CORPUSCULAR VOLUME 92.2 fL (81.0-99.0); MEAN PLATELET VOLUME 11.3 fL (7.9-10.8); MONOCYTES # (AUTO) 0.2 10^3/uL (0.0-1.0); MONOCYTES % (AUTO) 3.4 %; NEUTROPHILS # (AUTO) 6.1 10^3/uL (1.5-6.6); NEUTROPHILS % (AUTO) 89.1 %; PLT - PLATELET COUNT 157 10^3/uL (130-450); RED BLOOD COUNT 3.21 10^6/uL (4.20-5.40); RED CELL DISTRIBUTION WIDTH 22.2 % (12.0-15.0); WHITE BLOOD COUNT 6.9 x10^3/uL (4.8-10.8)
[2022-03-06 23:25] LABS: SLIDE REVIEW? Indicated
[2022-03-06] MEDS ORDERED: SODIUM CHLORIDE 0.9% 1,000 ML IV STA (23:28)
[2022-03-06 23:36] LABS: ALBUMIN 3.6 g/dL (3.2-5.5); ALBUMIN/GLOBULIN RATIO 1.6 (1.0-2.2); BILIRUBIN,TOTAL 0.4 mg/dL (0.2-1.0); CALCIUM 8.4 mg/dL (8.5-10.3); POTASSIUM 3.8 mmol/L (3.5-5.0); TOTAL PROTEIN 5.9 g/dL (6.7-8.2)
[2022-03-06 23:39] LABS: PLATELET ESTIMATE, MANUAL NORMAL (130-450,000) (NORMAL); PLATELET MORPHOLOGY NORMAL APPEARANCE (NORMAL); RBC MORPHOLOGY (MULTIPLE) 2+ ANISOCYTOSIS (NORMAL); WBC MORPHOLOGY (MULTIPLE) NORMAL APPEARANCE (NORMAL)
[2022-03-06 23:43] LABS: CREATININE 1.1 mg/dL (0.4-1.0)
[2022-03-07 00:20] VITALS: BP 134/75
== END 2022-03-07 00:28 | disposition home or self-care (01) ==
LOC: EDUNIT# → ED 22:33
DX: R55 Syncope and collapse (principal); I10 Essential (primary) hypertension; E11.9 Type 2 diabetes mellitus without complications; Z79.84 Long term (current) use of oral hypoglycemic drugs; Z66 Do not resuscitate
CPT/HCPCS: 36415; 80053; 83690; 84484; 85025; 93005; 96360; 99283

== ENCOUNTER 2022-03-25 07:29 | Day surgery (SDC) | payer MEDICAID ==
[~2022-03-25 07:29] MED LIST changes: +BUPIVACAINE 0.25% PF 10 ML VIAL ONE; +LIDOCAINE MPF 2%-EPI 1:200000 20 ML VIAL ONE; -lidocaine 1% 20 ML MDV ONE
[2022-03-25] MEDS ORDERED: MIDAZOLAM 2 MG/2 ML VIAL ONE (07:52)
[2022-03-25] MEDS ORDERED: fentaNYL 100 MCG/2 ML VIAL ONE (07:52)
[2022-03-25] MEDS ORDERED: PROPOFOL 200 MG/20 ML VIAL IVP ONE (07:52)
[2022-03-25] MEDS ORDERED: CEFAZOLIN 2G/50ML 0.9% NS 2 GM/50 ML BAG IV ONE (07:54)
[2022-03-25] MEDS ORDERED: LACTATED RINGERS 1,000 ML IV ONE ×2 (07:57→09:55)
--- NOTE | 2022-03-25 07:57 | ANESTHESIA ---
Pre-Anesthesia VS, & Labs - Diagnosis right mediport malposition, lymphoma - Procedure right port repositioning Vital Signs: Temp Pulse Resp BP Pulse Ox O2 Flow Rate 36 C L 79 20 137/77 H 100 03/25/22 07:47 03/25/22 07:47 03/25/22 07:47 03/25/22 07:47 03/25/22 07:47 Height: 5 ft 6 in Weight (kg): 100 kg Body Mass Index: 35.6 BMI Classification: Obese - NPO >8 hours - Is Patient ?: No Home Medications and Allergies Atorvastatin [Lipitor] 20 mg ORAL DAILY 04/17/17 Ferrous Sulfate 324 mg ORAL BID 04/17/17 Levothyroxine [Synthroid] 75 mcg ORAL DAILY 04/17/17 amLODIPine [Norvasc] 5 mg ORAL DAILY 04/17/17 metFORMIN [Glucophage] 1,000 mg ORAL BID 04/17/17 Acyclovir 400 mg PO DAILY 02/18/22 Metoprolol Succinate [Toprol Xl] 12.5 mg PO DAILY 02/18/22 lisinopriL [Zestril] 5 mg PO DAILY 02/18/22 Apixaban [Eliquis] 5 mg PO BID 03/04/22 Allergies/Adverse Reactions: Allergies Allergy/AdvReac Type Severity Reaction Status Date / Time cephalexin [From Keflex] AdvReac Itching Verified 03/18/22 12:58 Anes History & Medical History - Anesthetic History Anesthesia Complications: reports: No previous complications - Medical History Cardiovascular: reports: Hypertension, High cholesterol, Arrhythmia (history of A fib) Pulmonary: reports: Sleep apnea, CPAP use Gastrointestinal: reports: None, GI bleed Urinary: reports: None Musculoskeletal: reports: None Endocrine/Autoimmune: reports: Type 2 diabetes, HyPOthyroidism Skin: reports: Psoriasis, Other Smoking Status: Never smoker History of Cancer?: Yes - Surgical History General: reports: Colonoscopy Orthopedic: reports: Amputation, Other Exam General: Alert, Oriented x3 Dental: WNL, Other (permanent bridge) Neck Mobility: Normal Mallampati classification: IV Thyromental Distance: greater than 6 cm Respiratory: Lungs clear Cardiovascular: Regular rate, Normal S1, Normal S2 Plan Anesthesia Type: Total IV Consent for Procedure(s) Verified and Reviewed: Yes Code Status: Attempt Resuscitation ASA classification: 3-Severe systemic disease Is this case an emergency?: No
--- NOTE | 2022-03-25 09:05 | HISTORY & PHYSICAL EXAMINATION ---
Chief Complaint - Chief Complaint Chief Complaint: port not functional History of Present Illness - History Obtained From Records Reviewed: yes History obtained from: pt Exam Limitations: none - History of Present Illness HPI Comment/Other: She has lymphoma and a right IJ chemotherapy port. the port was placed in december and used twice. it has since twisted and is not functional. History - Past Medical History Cardiovascular: reports: Hypertension, High cholesterol, Arrhythmia (history of A fib) Respiratory: reports: Sleep apnea, CPAP use Endocrine/Autoimmune: reports: Type 2 diabetes, HyPOthyroidism GI: reports: None, GI bleed : reports: None HEENT: reports: None Psych: reports: Depression Musculoskeletal: reports: None Derm: reports: Psoriasis, Other MRSA Hx?: No - Past Surgical History General: reports: Colonoscopy Ortho: reports: Amputation, Other - Family & Social History Family History: Mother: , Father: , Hyperlipidemia, Hypert ension, [place], Sister: , Cancer (Sister had breast cancer, brother from multiple myeloma), Brother: , Cancer Family History Comment/Other: Mother age 91 complications of old age, father age 61 complications of cirrhosis and heart disease - Substance History Use: Uses substance without health or social issues: NONE - POLST Patient has POLST: Yes POLST Status: DNR Meds/Allgy - Home Medications Home Medications: Ambulatory Orders Medication Instructions Recorded Confirmed Atorvastatin [Lipitor] 20 mg ORAL DAILY 04/17/17 03/23/22 Ferrous Sulfate 324 mg ORAL BID 04/17/17 03/23/22 Levothyroxine [Synthroid] 75 mcg ORAL DAILY 04/17/17 03/23/22 amLODIPine [Norvasc] 5 mg ORAL DAILY 04/17/17 03/25/22 metFORMIN [Glucophage] 1,000 mg ORAL BID 04/17/17 03/25/22 Acyclovir 400 mg PO DAILY 02/18/22 03/23/22 Metoprolol Succinate [Toprol Xl] 12.5 mg PO DAILY 02/18/22 03/25/22 lisinopriL [Zestril] 5 mg PO DAILY 02/18/22 03/25/22 OLANZapine [Zyprexa] 5 mg PO UD #12 tablet 02/21/22 03/23/22 Prochlorperazine Maleate 10 mg PO Q6HR PRN #30 tablet 02/21/22 03/23/22 ondansetron HCL [Ondansetron HCl] 8 mg PO BID PRN #30 tablet 02/21/22 03/23/22 Apixaban [Eliquis] 5 mg PO BID 03/04/22 03/23/22 - Allergies Allergies/Adverse Reactions: Allergies Allergy/AdvReac Type Severity Reaction Status Date / Time cephalexin [From Keflex] AdvReac Itching Verified 03/18/22 12:58 Review of Systems - Other Findings Other Findings: 10 pt ros as above otherwise unremarkable Exam - Vital Signs Reviewed Vital Signs: Yes Vital Signs: Vital Signs x48h Temp Pulse Resp BP Pulse Ox 03/25/22 07:47 36 C L 79 20 137/77 H 100 - Physical Exam General Appearance: positive: No acute distress, Alert Eyes Bilateral: positive: PERRL, EOMI, No scleral icterus ENT: positive: No signs of dehydration Neck: positive: No JVD, Trachea midline Respiratory: positive: No respiratory distress Cardiovascular: positive: Regular rate & rhythm Abdomen: positive: No distention Neurologic/Psychiatric: positive: Oriented x3 Conclusion/Plan - Problem List (1) Lymphoma Conclusion/Plan: plan port revision. possible port replacement. parq held and consent obtained
[2022-03-25] MEDS ORDERED: PROPOFOL 500 MG/50 ML 500 MG/50 ML VIAL ONE (09:19)
[2022-03-25] MEDS ORDERED: BUPIVACAINE 0.25% PF 10 ML VIAL SUBQ ONE ×2 (09:41)
[2022-03-25] MEDS ORDERED: LIDOCAINE 2%-EPI 1:100000 20 ML MDV SUBQ ONE ×2 (09:41)
[2022-03-25] MEDS ORDERED: HYDROcod/ACETAM 5/325 MG TABLET PO PRN (09:58)
--- NOTE | 2022-03-25 10:04 | OPERATIVE REPORT ---
Operative Report - General Procedure Date: 03/25/22 Planned Procedure: reposition port Pre-Op Diagnosis: lymphoma and malpositioned port Procedure Performed: revision port placement Post Op Diagnosis: same. port in good functional position after revision - Procedure Note Primary Surgeon: kyle guo md Anesthesia Technique: Other (iv general) Pathology: none Estimated Blood Loss (mL): 1 Drain/Tube Type: Other (none) Indications: need for chemotherapy Findings: good flush and flow following reposition Complications: none - Other Other Information/Narrative: The patient was properly identified brought to the operating room and placed in supine position. Arms were tucked monitored anesthesia care was given. She was prepped and draped in a sterile fashion and given preoperative antibiotics. Of note she was given Keflex and had no reaction. Local anesthetic was given. She had a right internal jugular chemotherapy port. The right chest wall scar was excised. Scar tissue from around the port was sharply excised. Hemostasis was assured with cautery. Findings she likely had a small hematoma following port placement. The port was not secured or suture down to subcutaneous tissue or fascia. The port was twisted on the tubing. The port was then secured to the underlying subcutaneous tissue with 2 interrupted 5-0 Prolene sutures. Buried interrupted subdermal 3-0 Vicryl sutures were then placed. Skin was closed with a running 4-0 Monocryl subcuticular suture. Steri-Strips and dressing were applied. Port had been flushed and aspirated several times with saline followed by heparin. The port worked well. Preoperative chest x-ray showed the tip at the junction of the superior vena cava and the atrium. She tolerated the proced ure well was awakened and brought to recovery in good condition.
[2022-03-25 10:20] VITALS: BP 123/71
--- NOTE | 2022-03-25 11:10 | ANESTHESIA POST OP EVALUATION ---
Anesthesia Post Eval - Post Anesthesia Eval Vitals: Last Vital Signs Temp 36.5 C 03/25/22 10:19 Pulse 76 03/25/22 10:19 Resp 13 03/25/22 10:19 BP 123/71 03/25/22 10:19 Pulse Ox 100 03/25/22 10:19 O2 Flow Rate CV Function Including HR & BP: Stable Pain Control: Satisfactory Nausea & Vomiting: Negative Mental Status: Baseline Respiratory Status: Airway Patent Hydration Status: Satisfactory Anesthesia Complications: None
== END 2022-03-25 07:30 | disposition home or self-care (01) ==
LOC: SDS 07:29
PROVIDERS: ATTEND Surgery
DX: T82.594A Other mechanical complication of infusion catheter, initial encounter (principal); Y83.8 Other surgical procedures as the cause of abnormal reaction of the patient, or of later complication, without mention of misadventure at the time of the procedure; C81.99 Hodgkin lymphoma, unspecified, extranodal and solid organ sites; E66.9 Obesity, unspecified; Z68.35 Body mass index [BMI] 35.0-35.9, adult
CPT/HCPCS: 36576; J0690; J7120

== ENCOUNTER 2022-06-03 15:06 | Inpatient (IN) | payer MEDICAID ==
--- OUTSIDE RECORDS SUMMARY | 2022-06-03 15:21 | EXTERNAL MEDICAL SUMMARY RPT | Continuity of Care Document ---
:1960 Author Organization [facility] Address [address] [place] [address] Phone Care Team Providers Name Role Phone Unavailable Unavailable Unavailable Anu Salazar Unavailable Unavailable Allergies No information. Encounters No information. Functional Status No information. Immunizations No information. Medications date description facility 2022-03-06 00:00 metoprolol succinate [facility] 2022-03-07 00:00 metoprolol succinate [facility] 2022-03-17 00:00 metoprolol succinate [facility] 2022-03-18 00:00 metoprolol succinate [facility] 2022-03-21 00:00 metoprolol succinate [facility] 2022-03-25 00:00 metoprolol succinate [facility] 2022-04-01 00:00 metoprolol succinate [facility] 2022-04-04 00:00 metoprolol succinate [facility] 2022-04-06 00:00 metoprolol succinate [facility] 2022-04-15 00:00 metoprolol succinate [facility] 2022-04-29 00:00 metoprolol succinate [facility] 2022-05-03 00:00 metoprolol succinate [facility] 2022-05-13 00:00 metoprolol succinate [facility] 2022-05-16 00:00 metoprolol succinate [facility] 2022-05-20 00:00 metoprolol succinate [facility] 2022-05-27 00:00 metoprolol succinate [facility] 2022-03-06 00:00 METFORMIN HCL [facility] 2022-03-07 00:00 METFORMIN HCL [facility] 2022-03-17 00:00 METFORMIN HCL [facility] 2022-03-18 00:00 METFORMIN HCL [facility] 2022-03-21 00:00 METFORMIN HCL [facility] 2022-03-25 00:00 METFORMIN HCL [facility] 2022-04-01 00:00 METFORMIN HCL [facility] 2022-04-04 00:00 METFORMIN HCL [facility] 2022-04-06 00:00 METFORMIN HCL [facility] 2022-04-15 00:00 METFORMIN HCL [facility] 2022-04-29 00:00 METFORMIN HCL [facility] 2022-05-03 00:00 METFORMIN HCL [facility] 2022-05-13 00:00 METFORMIN HCL [facility] 2022-05-16 00:00 METFORMIN HCL [facility] 2022-05-20 00:00 METFORMIN HCL [facility] 2022-05-27 00:00 METFORMIN HCL [facility] 2022-03-06 00:00 lisinopril [facility] 2022-03-07 00:00 lisinopril [facility] 2022-03-17 00:00 lisinopril [facility] 2022-03-18 00:00 lisinopril [facility] 2022-03-21 00:00 lisinopril [facility] 2022-03-25 00:00 lisinopril [facility] 2022-04-01 00:00 lisinopril [facility] 2022-04-04 00:00 lisinopril [facility] 2022-04-06 00:00 lisinopril [facility] 2022-04-15 00:00 lisinopril [facility] 2022-04-29 00:00 lisinopril [facility] 2022-05-03 00:00 lisinopril [facility] 2022-05-13 00:00 lisinopril [facility] 2022-05-16 00:00 lisinopril [facility] 2022-05-20 00:00 lisinopril [facility] 2022-05-27 00:00 lisinopril [facility] 2022-03-06 00:00 allopurinol [facility] 2022-03-07 00:00 allopurinol [facility] 2022-03-17 00:00 allopurinol [facility] 2022-03-18 00:00 allopurinol [facility] mayes 2022-03-21 00:00 allopurinol [facility] 2022-03-25 00:00 allopurinol [facility] 2022-04-01 00:00 allopurinol [facility] 2022-04-04 00:00 allopurinol [facility] 2022-04-06 00:00 allopurinol [facility] 2022-04-15 00:00 allopurinol [facility] mayes 2022-04-29 00:00 allopurinol [facility] 2022-05-03 00:00 allopurinol [facility] 2022-05-13 00:00 allopurinol [facility] 2022-05-16 00:00 allopurinol [facility] 2022-05-20 00:00 allopurinol [facility] 2022-05-27 00:00 allopurinol [facility] 2022-03-06 00:00 ascorbic acid (vitamin c) [facility] 2022-03-07 00:00 ascorbic acid (vitamin c) [facility] 2022-03-17 00:00 ascorbic acid (vitamin c) [facility] 2022-03-18 00:00 ascorbic acid (vitamin c) [facility] 2022-03-21 00:00 ascorbic acid (vitamin c) [facility] 2022-03-25 00:00 ascorbic acid (vitamin c) [facility] 2022-04-01 00:00 ascorbic acid (vitamin c) [facility] 2022-04-04 00:00 ascorbic acid (vitamin c) [facility] 2022-04-06 00:00 ascorbic acid (vitamin c) [facility] 2022-04-15 00:00 ascorbic acid (vitamin c) [facility] 2022-04-29 00:00 ascorbic acid (vitamin c) [facility] 2022-05-03 00:00 ascorbic acid (vitamin c) [facility] 2022-05-13 00:00 ascorbic acid (vitamin c) [facility] 2022-05-16 00:00 ascorbic acid (vitamin c) [facility] 2022-05-20 00:00 ascorbic acid (vitamin c) [facility] 2022-05-27 00:00 ascorbic acid (vitamin c) [facility] 2022-03-06 00:00 lutein [facility] 2022-03-07 00:00 lutein [facility] 2022-03-17 00:00 lutein [facility] 2022-03-18 00:00 lutein [facility] 2022-03-21 00:00 lutein [facility] 2022-03-25 00:00 lutein [facility] 2022-04-01 00:00 lutein [facility] 2022-04-04 00:00 lutein [facility] 2022-04-06 00:00 lutein [facility] 2022-04-15 00:00 lutein [facility] 2022-04-29 00:00 lutein [facility] 2022-05-03 00:00 lutein [facility] 2022-05-13 00:00 lutein [facility] 2022-05-16 00:00 lutein [facility] 2022-05-20 00:00 lutein [facility] 2022-05-27 00:00 lutein [facility] 2022-03-06 00:00 acyclovir [facility] 2022-03-07 00:00 acyclovir [facility] 2022-03-17 00:00 acyclovir [facility] 2022-03-18 00:00 acyclovir [facility] 2022-03-21 00:00 acyclovir [facility] 2022-03-25 00:00 acyclovir [facility] 2022-04-01 00:00 acyclovir [facility] 2022-04-04 00:00 acyclovir [facility] 2022-04-06 00:00 acyclovir [facility] 2022-04-15 00:00 acyclovir [facility] 2022-04-29 00:00 acyclovir [facility] 2022-05-03 00:00 acyclovir [facility] 2022-05-13 00:00 acyclovir [facility] 2022-05-16 00:00 acyclovir [facility] 2022-05-20 00:00 acyclovir [facility] 2022-05-27 00:00 acyclovir [facility] 2022-03-06 00:00 vitamin b complex [facility] 2022-03-07 00:00 vitamin b complex [facility] 2022-03-17 00:00 vitamin b complex [facility] 2022-03-18 00:00 vitamin b complex [facility] 2022-03-21 00:00 vitamin b complex [facility] 2022-03-25 00:00 vitamin b complex [facility] 2022-04-01 00:00 vitamin b complex [facility] 2022-04-04 00:00 vitamin b complex [facility] 2022-04-06 00:00 vitamin b complex [facility] 2022-04-15 00:00 vitamin b complex [facility] 2022-04-29 00:00 vitamin b complex [facility] 2022-05-03 00:00 vitamin b complex [facility] 2022-05-13 00:00 vitamin b complex [facility] 2022-05-16 00:00 vitamin b complex [facility] 2022-05-20 00:00 vitamin b complex [facility] 2022-05-27 00:00 vitamin b complex [facility] 2022-03-06 00:00 wl-ci-jc4-ctr-ghe-juiz-lut-[facility] 2022-03-07 00:00 zg-pz-zp6-vva-bjk-nhjd-lut-[facility] 2022-03-17 00:00 zn-kq-vb8-roc-aft-rkfd-lut-[facility] 2022-03-18 00:00 ml-pv-wt0-txc-ukz-qylk-lut-[facility] 2022-03-21 00:00 pu-bp-fj5-ziz-abc-nsjb-lut-[facility] 2022-03-25 00:00 un-zr-hq4-apr-qqc-wiht-lut-[facility] 2022-04-01 00:00 ft-cg-me1-jtc-bea-icyo-lut-[facility] 2022-04-04 00:00 lf-gz-oe2-pgl-yin-vcfz-lut-[facility] 2022-04-06 00:00 jg-re-li5-fdh-enw-fmco-lut-[facility] 2022-04-15 00:00 ni-eu-fi4-cgs-ani-axhl-lut-[facility] 2022-04-29 00:00 xx-vn-pp9-zvo-kvq-hwue-lut-[facility] 2022-05-03 00:00 iz-dl-uc6-usj-lhf-lmxv-lut-[facility] 2022-05-13 00:00 tm-bs-hs7-qpv-wgv-ugvm-lut-[facility] 2022-05-16 00:00 ax-bf-fk5-iyu-otn-hnbe-lut-mary [facility] 2022-05-20 00:00 py-jm-ce8-ihn-otg-pzss-lut-[facility] 2022-05-27 00:00 jo-oo-yw5-nze-mcc-wlsb-lut-[facility] 2022-03-06 00:00 cholecalciferol (vitamin d3) [facility] 2022-03-07 00:00 cholecalciferol (vitamin d3) [facility] 2022-03-17 00:00 cholecalciferol (vitamin d3) [facility] 2022-03-18 00:00 cholecalciferol (vitamin d3) [facility] 2022-03-21 00:00 cholecalciferol (vitamin d3) [facility] 2022-03-25 00:00 cholecalciferol (vitamin d3) [facility] 2022-04-01 00:00 cholecalciferol (vitamin d3) [facility] 2022-04-04 00:00 cholecalciferol (vitamin d3) [facility] 2022-04-06 00:00 cholecalciferol (vitamin d3) [facility] 2022-04-15 00:00 cholecalciferol (vitamin d3) [facility] 2022-04-29 00:00 cholecalciferol (vitamin d3) [facility] 2022-05-03 00:00 cholecalciferol (vitamin d3) [facility] 2022-05-13 00:00 cholecalciferol (vitamin d3) [facility] 2022-05-16 00:00 cholecalciferol (vitamin d3) Walk[facility]In [facility] 2022-05-20 00:00 cholecalciferol (vitamin d3) Walk[facility] 2022-05-27 00:00 cholecalciferol (vitamin d3) Walk[facility] 2022-03-06 00:00 lutein [facility] 2022-03-07 00:00 lutein [facility] 2022-03-17 00:00 lutein [facility] 2022-03-18 00:00 lutein [facility] 2022-03-21 00:00 lutein [facility] 2022-03-25 00:00 lutein [facility] 2022-04-01 00:00 lutein [facility] 2022-04-04 00:00 lutein [facility] 2022-04-06 00:00 lutein [facility] 2022-04-15 00:00 lutein [facility] 2022-04-29 00:00 lutein [facility] 2022-05-03 00:00 lutein [facility] 2022-05-13 00:00 lutein [facility] 2022-05-16 00:00 lutein [facility] 2022-05-20 00:00 lutein [facility] 2022-05-27 00:00 lutein [facility] 2022-03-06 00:00 acyclovir [facility] 2022-03-07 00:00 acyclovir [facility] 2022-03-17 00:00 acyclovir [facility] 2022-03-18 00:00 acyclovir [facility] 2022-03-21 00:00 acyclovir [facility] 2022-03-25 00:00 acyclovir [facility] 2022-04-01 00:00 acyclovir [facility] 2022-04-04 00:00 acyclovir [facility] 2022-04-06 00:00 acyclovir [facility] 2022-04-15 00:00 acyclovir [facility] 2022-04-29 00:00 acyclovir [facility] 2022-05-03 00:00 acyclovir [facility] 2022-05-13 00:00 acyclovir [facility] 2022-05-16 00:00 acyclovir [facility] 2022-05-20 00:00 acyclovir [facility] 2022-05-27 00:00 acyclovir [facility] 2022-03-06 00:00 allopurinol [facility] 2022-03-07 00:00 allopurinol [facility] 2022-03-17 00:00 allopurinol [facility] 2022-03-18 00:00 allopurinol [facility] mayes 2022-03-21 00:00 allopurinol [facility] 2022-03-25 00:00 allopurinol [facility] 2022-04-01 00:00 allopurinol [facility] 2022-04-04 00:00 allopurinol [facility] 2022-04-06 00:00 allopurinol [facility] 2022-04-15 00:00 allopurinol [facility] 2022-04-29 00:00 allopurinol [facility] 2022-05-03 00:00 allopurinol [facility] 2022-05-13 00:00 allopurinol [facility] 2022-05-16 00:00 allopurinol [facility] 2022-05-20 00:00 allopurinol [facility] 2022-05-27 00:00 allopurinol [facility] mayes 2022-03-06 00:00 te-qf-xn5-aqq-euc-lqqd-lut-[facility] 2022-03-07 00:00 bx-st-qq7-ijl-iha-ozic-lut-[facility] mayes 2022-03-17 00:00 ru-fp-da5-vbs-jyd-hdhh-lut-[facility] 2022-03-18 00:00 hr-gk-rz4-mex-rtd-jllu-lut-[facility] mayes 2022-03-21 00:00 lm-dv-ko9-wva-sga-pgep-lut-[facility] mayes 2022-03-25 00:00 dj-xp-dc1-afb-uks-pplk-lut-[facility] 2022-04-01 00:00 pi-fr-ej5-rpr-kbi-yhkw-lut-[facility] mayes 2022-04-04 00:00 ud-kz-wj9-caz-mnz-ziwm-lut-[facility] 2022-04-06 00:00 wx-mu-jf8-tar-tun-jcru-lut-[facility] mayes 2022-04-15 00:00 hz-jc-vi6-vjs-xjf-havr-lut-[facility] mayes 2022-04-29 00:00 mt-jw-vl5-zhq-tty-eyri-lut-[facility] 2022-05-03 00:00 ip-xx-wo4-gdo-obt-vhet-lut-[facility] 2022-05-13 00:00 uj-he-eh9-lpy-kvp-pywo-lut-[facility] mayes 2022-05-16 00:00 fa-tf-fg4-qcg-buz-yosq-lut-[facility] 2022-05-20 00:00 qb-bg-so5-rlz-mwo-cmdg-lut-[facility] mayes 2022-05-27 00:00 yp-ya-wg1-bay-tdb-fxyc-lut-[facility] mayes 2022-03-06 00:00 acyclovir [facility] su[facility] 2022-03-07 00:00 acyclovir [facility] su[facility] 2022-03-17 00:00 acyclovir [facility] 2022-03-18 00:00 acyclovir [facility] 2022-03-21 00:00 acyclovir [facility] 2022-03-25 00:00 acyclovir [facility] 2022-04-01 00:00 acyclovir [facility] 2022-04-04 00:00 acyclovir [facility] 2022-04-06 00:00 acyclovir [facility] 2022-04-15 00:00 acyclovir [facility] 2022-04-29 00:00 acyclovir [facility] 2022-05-03 00:00 acyclovir [facility] 2022-05-13 00:00 acyclovir [facility] 2022-05-16 00:00 acyclovir [facility] 2022-05-20 00:00 acyclovir [facility] 2022-05-27 00:00 acyclovir [facility] 2022-03-06 00:00 METFORMIN HCL [facility] 2022-03-07 00:00 METFORMIN HCL [facility] 2022-03-17 00:00 METFORMIN HCL [facility] 2022-03-18 00:00 METFORMIN HCL [facility] 2022-03-21 00:00 METFORMIN HCL [facility] 2022-03-25 00:00 METFORMIN HCL [facility] 2022-04-01 00:00 METFORMIN HCL [facility] 2022-04-04 00:00 METFORMIN HCL [facility] 2022-04-06 00:00 [facility] 2022-04-15 00:00 [facility] 2022-04-29 00:00 [facility] HCL [facility] 2022-05-03 00:00 [facility] HCL [facility] 2022-05-13 00:00 [facility] HCL [facility] 2022-05-16 00:00 MET[facility] HCL [facility] 2022-05-20 00:00 METFORMIN HCL [facility] 2022-05-27 00:00 [facility]FORMIN HCL [facility] 2022-03-06 00:00 lisinopril [facility] 2022-03-07 00:00 lisinopril [facility] 2022-03-17 00:00 lisinopril [facility] 2022-03-18 00:00 lisinopril [facility] 2022-03-21 00:00 lisinopril [facility] 2022-03-25 00:00 lisinopril [facility] 2022-04-01 00:00 lisinopril [facility] 2022-04-04 00:00 lisinopril [facility] 2022-04-06 00:00 lisinopril [facility] 2022-04-15 00:00 lisinopril [facility] 2022-04-29 00:00 lisinopril [facility] 2022-05-03 00:00 lisinopril [facility] 2022-05-13 00:00 lisinopril [facility] 2022-05-16 00:00 lisinopril [facility] 2022-05-20 00:00 lisinopril [facility] 2022-05-27 00:00 lisinopril [facility] 2022-03-06 00:00 [facility] HCL [facility] 2022-03-07 00:00 [facility] HCL [facility] 2022-03-17 00:00 [facility]CL [facility] 2022-03-18 00:00 [facility]CL [facility] 2022-03-21 00:00 [facility] HCL [facility] 2022-03-25 00:00 [facility]CL [facility] 2022-04-01 00:00 [facility] HCL [facility] 2022-04-04 00:00 [facility] HCL [facility] 2022-04-06 00:00 [facility] HCL [facility] 2022-04-15 00:00 [facility] HCL [facility] 2022-04-29 00:00 [facility]CL [facility] 2022-05-03 00:00 [facility] HCL [facility] 2022-05-13 00:00 [facility] HCL [facility] 2022-05-16 00:00 [facility] HCL [facility] 2022-05-20 00:00 MET[facility] HCL [facility] 2022-05-27 00:00 MET[facility] HCL [facility] 2022-03-06 00:00 lisinopril [facility] 2022-03-07 00:00 lisinopril [facility] 2022-03-17 00:00 lisinopril [facility] 2022-03-18 00:00 lisinopril [facility] 2022-03-21 00:00 lisinopril [facility] 2022-03-25 00:00 lisinopril [facility] 2022-04-01 00:00 lisinopril [facility] 2022-04-04 00:00 lisinopril [facility] 2022-04-06 00:00 lisinopril [facility] 2022-04-15 00:00 lisinopril [facility] 2022-04-29 00:00 lisinopril [facility] 2022-05-03 00:00 lisinopril [facility] 2022-05-13 00:00 lisinopril [facility] 2022-05-16 00:00 lisinopril [facility] 2022-05-20 00:00 lisinopril [facility] 2022-05-27 00:00 lisinopril [facility] 2022-03-06 00:00 metoprolol succinate [facility] 2022-03-07 00:00 metoprolol succinate [facility] 2022-03-17 00:00 metoprolol succinate [facility] 2022-03-18 00:00 metoprolol succinate [facility] 2022-03-21 00:00 metoprolol succinate [facility] 2022-03-25 00:00 metoprolol succinate [facility] 2022-04-01 00:00 metoprolol succinate [facility] 2022-04-04 00:00 metoprolol succinate [facility] 2022-04-06 00:00 metoprolol succinate [facility] 2022-04-15 00:00 metoprolol succinate [facility] 2022-04-29 00:00 metoprolol succinate [facility] 2022-05-03 00:00 metoprolol succinate [facility] 2022-05-13 00:00 metoprolol succinate [facility] 2022-05-16 00:00 metoprolol succinate [facility] 2022-05-20 00:00 metoprolol succinate [facility] 2022-05-27 00:00 metoprolol succinate [facility] 2022-03-06 00:00 lisinopril [facility] 2022-03-07 00:00 lisinopril [facility] 2022-03-17 00:00 lisinopril [facility] 2022-03-18 00:00 lisinopril [facility] 2022-03-21 00:00 lisinopril [facility] 2022-03-25 00:00 lisinopril [facility] 2022-04-01 00:00 lisinopril [facility] 2022-04-04 00:00 lisinopril [facility] 2022-04-06 00:00 lisinopril [facility] 2022-04-15 00:00 lisinopril [facility] 2022-04-29 00:00 lisinopril [facility] 2022-05-03 00:00 lisinopril [facility] 2022-05-13 00:00 lisinopril [facility] 2022-05-16 00:00 lisinopril [facility] 2022-05-20 00:00 lisinopril [facility] 2022-05-27 00:00 lisinopril [facility] 2022-03-06 00:00 vitamin b complex [facility] 2022-03-07 00:00 vitamin b complex [facility] 2022-03-17 00:00 vitamin b complex [facility] 2022-03-18 00:00 vitamin b complex [facility] 2022-03-21 00:00 vitamin b complex [facility] 2022-03-25 00:00 vitamin b complex [facility] 2022-04-01 00:00 vitamin b complex [facility] 2022-04-04 00:00 vitamin b complex [facility] 2022-04-06 00:00 vitamin b complex [facility] 2022-04-15 00:00 vitamin b complex [facility] 2022-04-29 00:00 vitamin b complex [facility] 2022-05-03 00:00 vitamin b complex [facility] 2022-05-13 00:00 vitamin b complex [facility] 2022-05-16 00:00 vitamin b complex [facility] 2022-05-20 00:00 vitamin b complex [facility] 2022-05-27 00:00 vitamin b complex [facility] 2022-03-06 00:00 cholecalciferol (vitamin d3) Walk[facility]In [facility] Jasmyne mayes 2022-03-07 00:00 cholecalciferol (vitamin d3) Walk[facility]In [facility] Jasmyne mayes 2022-03-17 00:00 cholecalciferol (vitamin d3) [facility]In [facility] Jasmyne mayes 2022-03-18 00:00 cholecalciferol (vitamin d3) [facility]In [facility] 2022-03-21 00:00 cholecalciferol (vitamin d3) [facility] 2022-03-25 00:00 cholecalciferol (vitamin d3) [facility] Jasmyne mayes 2022-04-01 00:00 cholecalciferol (vitamin d3) [facility] 2022-04-04 00:00 cholecalciferol (vitamin d3) [facility] 2022-04-06 00:00 cholecalciferol (vitamin d3) [facility] 2022-04-15 00:00 cholecalciferol (vitamin d3) [facility] 2022-04-29 00:00 cholecalciferol (vitamin d3) [facility] 2022-05-03 00:00 cholecalciferol (vitamin d3) [facility] 2022-05-13 00:00 cholecalciferol (vitamin d3) [facility] 2022-05-16 00:00 cholecalciferol (vitamin d3) [facility] 2022-05-20 00:00 cholecalciferol (vitamin d3) [facility] 2022-05-27 00:00 cholecalciferol (vitamin d3) [facility] 2022-03-06 00:00 ascorbic acid (vitamin c) [facility] 2022-03-07 00:00 ascorbic acid (vitamin c) [facility] 2022-03-17 00:00 ascorbic acid (vitamin c) [facility] 2022-03-18 00:00 ascorbic acid (vitamin c) [facility] 2022-03-21 00:00 ascorbic acid (vitamin c) [facility] 2022-03-25 00:00 ascorbic acid (vitamin c) [facility] 2022-04-01 00:00 ascorbic acid (vitamin c) [facility] 2022-04-04 00:00 ascorbic acid (vitamin c) [facility] 2022-04-06 00:00 ascorbic acid (vitamin c) [facility] 2022-04-15 00:00 ascorbic acid (vitamin c) [facility] 2022-04-29 00:00 ascorbic acid (vitamin c) [facility] 2022-05-03 00:00 ascorbic acid (vitamin c) [facility] 2022-05-13 00:00 ascorbic acid (vitamin c) [facility] 2022-05-16 00:00 ascorbic acid (vitamin c) [facility] 2022-05-20 00:00 ascorbic acid (vitamin c) [facility] 2022-05-27 00:00 ascorbic acid (vitamin c) [facility] 2022-03-06 00:00 lutein [facility] 2022-03-07 00:00 lutein [facility] 2022-03-17 00:00 lutein [facility] 2022-03-18 00:00 lutein [facility] 2022-03-21 00:00 lutein [facility] 2022-03-25 00:00 lutein [facility] 2022-04-01 00:00 lutein [facility] 2022-04-04 00:00 lutein [facility] 2022-04-06 00:00 lutein [facility] 2022-04-15 00:00 lutein [facility] 2022-04-29 00:00 lutein [facility] 2022-05-03 00:00 lutein [facility] 2022-05-13 00:00 lutein [facility] 2022-05-16 00:00 lutein [facility] 2022-05-20 00:00 lutein [facility] 2022-05-27 00:00 lutein [facility] 2022-03-06 00:00 acyclovir [facility] 2022-03-07 00:00 acyclovir [facility] 2022-03-17 00:00 acyclovir [facility] 2022-03-18 00:00 acyclovir [facility] 2022-03-21 00:00 acyclovir [facility] 2022-03-25 00:00 acyclovir [facility] 2022-04-01 00:00 acyclovir [facility] 2022-04-04 00:00 acyclovir [facility] 2022-04-06 00:00 acyclovir [facility] 2022-04-15 00:00 acyclovir [facility] 2022-04-29 00:00 acyclovir [facility] 2022-05-03 00:00 acyclovir [facility] 2022-05-13 00:00 acyclovir [facility] 2022-05-16 00:00 acyclovir [facility] 2022-05-20 00:00 acyclovir [facility] 2022-05-27 00:00 acyclovir [facility] 2022-03-06 00:00 allopurinol [facility] 2022-03-07 00:00 allopurinol [facility] 2022-03-17 00:00 allopurinol [facility] 2022-03-18 00:00 allopurinol [facility] 2022-03-21 00:00 allopurinol [facility] 2022-03-25 00:00 allopurinol [facility] 2022-04-01 00:00 allopurinol [facility] 2022-04-04 00:00 allopurinol [facility] 2022-04-06 00:00 allopurinol [facility] 2022-04-15 00:00 allopurinol [facility] 2022-04-29 00:00 allopurinol [facility] 2022-05-03 00:00 allopurinol [facility] 2022-05-13 00:00 allopurinol [facility] 2022-05-16 00:00 allopurinol [facility] 2022-05-20 00:00 allopurinol [facility] 2022-05-27 00:00 allopurinol [facility] 2022-03-06 00:00 metoprolol succinate [facility] 2022-03-07 00:00 metoprolol succinate [facility] 2022-03-17 00:00 metoprolol succinate [facility] 2022-03-18 00:00 metoprolol succinate [facility] 2022-03-21 00:00 metoprolol succinate [facility] 2022-03-25 00:00 metoprolol succinate [facility] 2022-04-01 00:00 metoprolol succinate [facility] 2022-04-04 00:00 metoprolol succinate [facility] 2022-04-06 00:00 metoprolol succinate [facility] 2022-04-15 00:00 metoprolol succinate [facility] 2022-04-29 00:00 metoprolol succinate [facility] 2022-05-03 00:00 metoprolol succinate [facility] 2022-05-13 00:00 metoprolol succinate [facility] 2022-05-16 00:00 metoprolol succinate [facility] Jasmyne mayes 2022-05-20 00:00 metoprolol succinate [facility] 2022-05-27 00:00 metoprolol succinate [facility] 2022-03-06 00:00 ascorbic acid (vitamin c) [facility] 2022-03-07 00:00 ascorbic acid (vitamin c) [facility] 2022-03-17 00:00 ascorbic acid (vitamin c) [facility] 2022-03-18 00:00 ascorbic acid (vitamin c) [facility] 2022-03-21 00:00 ascorbic acid (vitamin c) [facility] 2022-03-25 00:00 ascorbic acid (vitamin c) [facility] 2022-04-01 00:00 ascorbic acid (vitamin c) [facility] 2022-04-04 00:00 ascorbic acid (vitamin c) [facility] 2022-04-06 00:00 ascorbic acid (vitamin c) [facility] 2022-04-15 00:00 ascorbic acid (vitamin c) [facility] 2022-04-29 00:00 ascorbic acid (vitamin c) [facility] 2022-05-03 00:00 ascorbic acid (vitamin c) [facility] 2022-05-13 00:00 ascorbic acid (vitamin c) [facility] 2022-05-16 00:00 ascorbic acid (vitamin c) [facility] 2022-05-20 00:00 ascorbic acid (vitamin c) [facility] 2022-05-27 00:00 ascorbic acid (vitamin c) [facility] 2022-03-06 00:00 cholecalciferol (vitamin d3) [facility] 2022-03-07 00:00 cholecalciferol (vitamin d3) [facility] 2022-03-17 00:00 cholecalciferol (vitamin d3) [facility] 2022-03-18 00:00 cholecalciferol (vitamin d3) [facility] 2022-03-21 00:00 cholecalciferol (vitamin d3) [facility] 2022-03-25 00:00 cholecalciferol (vitamin d3) Walk[facility]In C [facility] sugey 2022-04-01 00:00 cholecalciferol (vitamin d3) Walk[facility]In [facility] 2022-04-04 00:00 cholecalciferol (vitamin d3) [facility] 2022-04-06 00:00 cholecalciferol (vitamin d3) [facility] 2022-04-15 00:00 cholecalciferol (vitamin d3) [facility] 2022-04-29 00:00 cholecalciferol (vitamin d3) [facility] 2022-05-03 00:00 cholecalciferol (vitamin d3) [facility] 2022-05-13 00:00 cholecalciferol (vitamin d3) [facility] 2022-05-16 00:00 cholecalciferol (vitamin d3) [facility] 2022-05-20 00:00 cholecalciferol (vitamin d3) [facility] 2022-05-27 00:00 cholecalciferol (vitamin d3) [facility] 2022-03-06 00:00 vitamin b complex [facility] 2022-03-07 00:00 vitamin b complex [facility] 2022-03-17 00:00 vitamin b complex [facility] 2022-03-18 00:00 vitamin b complex [facility] 2022-03-21 00:00 vitamin b complex [facility] 2022-03-25 00:00 vitamin b complex [facility] 2022-04-01 00:00 vitamin b complex [facility] 2022-04-04 00:00 vitamin b complex [facility] 2022-04-06 00:00 vitamin b complex [facility] 2022-04-15 00:00 vitamin b complex [facility] 2022-04-29 00:00 vitamin b complex [facility] 2022-05-03 00:00 vitamin b complex [facility] 2022-05-13 00:00 vitamin b complex [facility] 2022-05-16 00:00 vitamin b complex [facility] 2022-05-20 00:00 vitamin b complex [facility] 2022-05-27 00:00 vitamin b complex [facility] 2022-03-06 00:00 [id number] [facility] Jasmyne mayes 2022-03-07 00:00 vp-ty-ei2-wfg-qbc-ptbq-lut-[facility] 2022-03-17 00:00 ca-sd-mo5-hrl-idu-unob-lut-[facility] 2022-03-18 00:00 yo-ka-dg4-vnc-gzc-tnae-lut-[facility] 2022-03-21 00:00 uu-dr-nl4-xyh-ibu-yzam-lut-[facility] 2022-03-25 00:00 mb-da-if0-xdn-gid-wmmx-lut-[facility] 2022-04-01 00:00 fs-ki-rq9-tce-otn-bmlx-lut-[facility] Jasmyne mayes 2022-04-04 00:00 sq-nv-cs7-jqa-xew-zgkg-lut-[facility] 2022-04-06 00:00 ya-hk-qv8-bor-pwf-fnmx-lut-[facility] Jasmyne mayes 2022-04-15 00:00 ir-xl-eb4-uhd-zym-amci-lut-[facility] Jas[facility]ne mayes 2022-04-29 00:00 ip-tg-oo0-toz-xat-rdxg-lut-[facility] Jasmyne mayes 2022-05-03 00:00 pu-sx-bd4-gvr-fit-ysgk-lut-[facility] Jasmyne mayes 2022-05-13 00:00 oz-xq-bn2-xni-rav-rxwk-lut-[facility] 2022-05-16 00:00 bn-pr-md2-iks-tgb-wfel-lut-[facility] 2022-05-20 00:00 ch-yc-hv6-grc-kzo-ejnj-lut-[facility] Jasmyne mayes 2022-05-27 00:00 wm-aq-bz0-jrx-xbg-spkx-lut-[facility] Jasmyne sugey 2022-03-06 00:00 METFORMIN HCL [facility] Jasmyne rosensugey 2022-03-07 00:00 METFORMIN HCL [facility] 2022-03-17 00:00 METFORMIN HCL [facility] 2022-03-18 00:00 METFORMIN HCL [facility] 2022-03-21 00:00 METFORMIN HCL [facility] 2022-03-25 00:00 METFORMIN HCL [facility] 2022-04-01 00:00 METFORMIN HCL [facility] 2022-04-04 00:00 METFORMIN HCL [facility] 2022-04-06 00:00 METFORMIN HCL [facility] 2022-04-15 00:00 METFORMIN HCL [facility] 2022-04-29 00:00 METFORMIN HCL [facility] 2022-05-03 00:00 METFORMIN HCL [facility] 2022-05-13 00:00 METFORMIN HCL [facility] 2022-05-16 00:00 METFORMIN HCL [facility] 2022-05-20 00:00 METFORMIN HCL [facility] 2022-05-27 00:00 METFORMIN HCL [facility] 2022-03-06 00:00 allopurinol [facility] 2022-03-07 00:00 allopurinol [facility] 2022-03-17 00:00 allopurinol [facility] 2022-03-18 00:00 allopurinol [facility] 2022-03-21 00:00 allopurinol [facility] 2022-03-25 00:00 allopurinol [facility] 2022-04-01 00:00 allopurinol [facility] 2022-04-04 00:00 allopurinol [facility] 2022-04-06 00:00 allopurinol [facility] 2022-04-15 00:00 allopurinol [facility] 2022-04-29 00:00 allopurinol [facility] 2022-05-03 00:00 allopurinol [facility] 2022-05-13 00:00 allopurinol [facility] 2022-05-16 00:00 allopurinol [facility] 2022-05-20 00:00 allopurinol [facility] 2022-05-27 00:00 allopurinol [facility] 2022-03-06 00:00 metoprolol succinate [facility] 2022-03-07 00:00 metoprolol succinate [facility] 2022-03-17 00:00 metoprolol succinate [facility] 2022-03-18 00:00 metoprolol succinate [facility] 2022-03-21 00:00 metoprolol succinate [facility] 2022-03-25 00:00 metoprolol succinate [facility] 2022-04-01 00:00 metoprolol succinate [facility] 2022-04-04 00:00 metoprolol succinate [facility] 2022-04-06 00:00 metoprolol succinate [facility] 2022-04-15 00:00 metoprolol succinate [facility] 2022-04-29 00:00 metoprolol succinate [facility] 2022-05-03 00:00 metoprolol succinate [facility] 2022-05-13 00:00 metoprolol succinate [facility] 2022-05-16 00:00 metoprolol succinate [facility] 2022-05-20 00:00 metoprolol succinate [facility] 2022-05-27 00:00 metoprolol succinate [facility] 2022-03-06 00:00 lutein [facility] 2022-03-07 00:00 lutein [facility] 2022-03-17 00:00 lutein [facility] 2022-03-18 00:00 lutein [facility] 2022-03-21 00:00 lutein [facility] 2022-03-25 00:00 lutein [facility] 2022-04-01 00:00 lutein [facility] 2022-04-04 00:00 lutein [facility] 2022-04-06 00:00 lutein [facility] 2022-04-15 00:00 lutein [facility] 2022-04-29 00:00 lutein [facility] 2022-05-03 00:00 lutein [facility] 2022-05-13 00:00 lutein [facility] 2022-05-16 00:00 lutein [facility] 2022-05-20 00:00 lutein [facility] 2022-05-27 00:00 lutein [facility] 2022-03-06 00:00 cholecalciferol (vitamin d3 [facility] 2022-03-07 00:00 cholecalciferol (vitamin d3 [facility] 2022-03-17 00:00 cholecalciferol (vitamin d3 [facility] 2022-03-18 00:00 cholecalciferol (vitamin d3 [facility] 2022-03-21 00:00 cholecalciferol (vitamin d3 [facility] 2022-03-25 00:00 cholecalciferol (vitamin d3 [facility] 2022-04-01 00:00 cholecalciferol (vitamin d3 [facility] 2022-04-04 00:00 cholecalciferol (vitamin d3 [facility] 2022-04-06 00:00 cholecalciferol (vitamin d3 [facility] 2022-04-15 00:00 cholecalciferol (vitamin d3 [facility] 2022-04-29 00:00 cholecalciferol (vitamin d3 [facility] 2022-05-03 00:00 cholecalciferol (vitamin d3 [facility] 2022-05-13 00:00 cholecalciferol (vitamin d3 [facility] 2022-05-16 00:00 cholecalciferol (vitamin d3 [facility] 2022-05-20 00:00 cholecalciferol (vitamin d3 [facility] 2022-05-27 00:00 cholecalciferol (vitamin d3 [facility] 2022-03-06 00:00 apixaban [facility] 2022-03-07 00:00 apixaban [facility] 2022-03-17 00:00 apixaban [facility] 2022-03-18 00:00 apixaban [facility] 2022-03-21 00:00 apixaban [facility] 2022-03-25 00:00 apixaban [facility] 2022-04-01 00:00 apixaban [facility] Jasmyne sugey 2022-04-04 00:00 apixaban [facility] Jas[facility]ne sugey 2022-04-06 00:00 apixaban [facility] Jas[facility]ne sugey 2022-04-15 00:00 apixaban [facility] 2022-04-29 00:00 apixaban [facility] Jas[facility]ne sugey 2022-05-03 00:00 apixaban [facility] Jasmyne sugey 2022-05-13 00:00 apixaban [facility] J[facility]ne sugey 2022-05-16 00:00 apixaban [facility] Jasmyne sugey 2022-05-20 00:00 apixaban [facility] Jasmyne sugey 2022-05-27 00:00 apixaban [facility] Jasmyne sugey Problems date description facility 2022-03-06 00:00 Other and unspecified [facility] hyperlipidemia [facility] Jasmyne sugey 2022-03-06 00:00 Morbid obesity [facility] Jasmyne mayes 2022-03-06 00:00 Hyperlipidemia [facility] Jasmyne mayes 2022-03-06 00:00 Obstructive sleep apnea syndrome [facility] Jasmyne sugey 2022-03-06 00:00 Morbid (severe) obesity due to [facility] excess calories [facility] Jasmyne mayes 2022-03-06 00:00 Hyperlipidemia, unspecified [facility] Jasmyne rosensugey 2022-03-06 00:00 Obstructive sleep apnea (adult) [facility]ped[facility] Jasmyne mayes 2022-03-07 00:00 Other and unspecified [facility] hyper[facility] Jasmyne mayes 2022-03-07 00:00 Morbid obesity [facility] Jasmyne mayes 2022-03-07 00:00 Hyperlipidemia [facility] Jasmyne mayes 2022-03-07 00:00 Obstructive sleep apnea syndrome [facility] Jasmyne rosensugey 2022-03-07 00:00 Morbid (severe) obesity due to [facility] excess calories [facility] Jasmyne mayes 2022-03-07 00:00 Hyperlipidemia, unspecified [facility] Jasmyne mayes 2022-03-07 00:00 Obstructive sleep apnea (adult) [facility] Jasmyne mayes 2022-03-17 00:00 Other and unspecified [facility] hyper[facility] Jasmyne mayes 2022-03-17 00:00 Morbid obesity [facility] Jasmyne mayes 2022-03-17 00:00 Hyperlipidemia [facility] Jasmyne mayes 2022-03-17 00:00 Obstructive sleep apnea syndrome [facility] Jasmyne mayes 2022-03-17 00:00 Morbid (severe) obesity due to [facility] excess calories [facility] Jasmyne mayes 2022-03-17 00:00 Hyperlipidemia, unspecified [facility] Jasmyne mayes 2022-03-17 00:00 Obstructive sleep apnea (adult) [facility] Jasmyne mayes 2022-03-18 00:00 Other and unspecified [facility] hyper[facility] Jasmyne mayes 2022-03-18 00:00 Morbid obesity [facility] Jasmyne mayes 2022-03-18 00:00 Hyperlipidemia [facility] Jasmyne mayes 2022-03-18 00:00 Obstructive sleep apnea syndrome [facility] Jasmyne mayes 2022-03-18 00:00 Morbid (severe) obesity due to [facility] excess calories [facility] Jasmyne mayes 2022-03-18 00:00 Hyperlipidemia, unspecified [facility] Jasmyne mayes 2022-03-18 00:00 Obstructive sleep apnea (adult) [facility]ped[facility] Jasmyne mayes 2022-03-21 00:00 Other and unspecified [facility] hyper[facility] Jasmyne mayes 2022-03-21 00:00 Morbid obesity [facility] Jasmyne mayes 2022-03-21 00:00 Hyperlipidemia [facility] Jasmyne mayes 2022-03-21 00:00 Obstructive sleep apnea syndrome [facility] Jasmyne mayes 2022-03-21 00:00 Morbid (severe) obesity due to [facility] excess calories [facility] Jasmyne mayes 2022-03-21 00:00 Hyperlipidemia, unspecified [facility] Jasmyne mayes 2022-03-21 00:00 Obstructive sleep apnea (adult) [facility]ped[facility] Jasmyne mayes 2022-03-25 00:00 Other and unspecified [facility] hyperlipidemia [facility] Jasmyne mayes 2022-03-25 00:00 Morbid obesity [facility] Jasmyne mayes 2022-03-25 00:00 Hyperlipidemia [facility] Jasmyne mayes 2022-03-25 00:00 Obstructive sleep apnea syndrome [facility] Jasmyne mayes 2022-03-25 00:00 Morbid (severe) obesity due to [facility] excess calories [facility] Jasmyne mayes 2022-03-25 00:00 Hyperlipidemia, unspecified [facility] Jasmyne sugey 2022-03-25 00:00 Obstructive sleep apnea (adult) [facility]ped[facility] Jasmyne mayes 2022-04-01 00:00 Other and unspecified [facility] hyperlipidemia [facility] Jasmyne mayes 2022-04-01 00:00 Morbid obesity [facility] Jasmyne mayes 2022-04-01 00:00 Hyperlipidemia [facility] Jasmyne mayes 2022-04-01 00:00 Obstructive sleep apnea syndrome [facility] Jasmyne mayes 2022-04-01 00:00 Morbid (severe) obesity due to [facility] excess calories [facility] Jasmyne mayes 2022-04-01 00:00 Hyperlipidemia, unspecified [facility] Jasmyne mayes 2022-04-01 00:00 Obstructive sleep apnea (adult) [facility]ped[facility] Jasmyne mayes 2022-04-04 00:00 Other and unspecified [facility] hyperlipidemia [facility] Jasmyne mayes 2022-04-04 00:00 Morbid obesity [facility] Jasmyne mayes 2022-04-04 00:00 Hyperlipidemia [facility] Jasmyne mayes 2022-04-04 00:00 Obstructive sleep apnea syndrome [facility] Jasmyne mayes 2022-04-04 00:00 Morbid (severe) obesity due to [facility] excess calories [facility] Jasmyne mayes 2022-04-04 00:00 Hyperlipidemia, unspecified [facility] Jasmyne mayes 2022-04-04 00:00 Obstructive sleep apnea (adult) [facility]ped[facility] Jasmyne mayes 2022-04-06 00:00 Other and unspecified [facility] hyperlipidemia [facility] Jasmyne mayes 2022-04-06 00:00 Morbid obesity [facility] Jasmyne mayes 2022-04-06 00:00 Hyperlipidemia [facility] Jasmyne rosensugey 2022-04-06 00:00 Obstructive sleep apnea syndrome [facility] Jasmyne rosensugey 2022-04-06 00:00 Morbid (severe) obesity due to [facility] excess calories [facility] Jasmyne rosensugey 2022-04-06 00:00 Hyperlipidemia, unspecified [facility] Jasmyne rosensugey 2022-04-06 00:00 Obstructive sleep apnea (adult) [facility] Jasmyne mayes 2022-04-15 00:00 Other and unspecified [facility] hyperlipidemia [facility] Jasmyne mayes 2022-04-15 00:00 Morbid obesity [facility] Jasmyne mayes 2022-04-15 00:00 Hyperlipidemia [facility] Jasmyne mayes 2022-04-15 00:00 Obstructive sleep apnea syndrome [facility] Jasmyne mayes 2022-04-15 00:00 Morbid (severe) obesity due to [facility] excess calories [facility] Jasmyne mayes 2022-04-15 00:00 Hyperlipidemia, unspecified [facility] Jasmyne mayes 2022-04-15 00:00 Obstructive sleep apnea (adult) [facility]ped[facility] Jasmyne mayes 2022-04-29 00:00 Other and unspecified [facility] hyperlipidemia [facility] Services Jasmyne mayes 2022-04-29 00:00 Morbid obesity [facility] Jasmyne mayes 2022-04-29 00:00 Hyperlipidemia [facility] Jasmyne mayes 2022-04-29 00:00 Obstructive sleep apnea syndrome [facility] Jasmyne mayes 2022-04-29 00:00 Morbid (severe) obesity due to [facility] excess calories [facility] Services Jasmyne mayes 2022-04-29 00:00 Hyperlipidemia, unspecified [facility] Jasmyne mayes 2022-04-29 00:00 Obstructive sleep apnea (adult) [facility]ped[facility] Jasmyne mayes 2022-05-03 00:00 Other and unspecified [facility] hyperlipidemia [facility] Services Jasmyne mayes 2022-05-03 00:00 Morbid obesity [facility] Jasmyne mayes 2022-05-03 00:00 Hyperlipidemia [facility] Jasmyne mayes 2022-05-03 00:00 Obstructive sleep apnea syndrome [facility] Jasmyne mayes 2022-05-03 00:00 Morbid (severe) obesity due to [facility] excess calories [facility] Jasmyne mayes 2022-05-03 00:00 Hyperlipidemia, unspecified [facility] Jasmyne mayes 2022-05-03 00:00 Obstructive sleep apnea (adult) [facility]ped[facility] Jasmyne mayes 2022-05-13 00:00 Other and unspecified [facility] Care & hyperlipidemia [facility] Services Jasmyne mayes 2022-05-13 00:00 Morbid obesity [facility] Jasmyne mayes 2022-05-13 00:00 Hyperlipidemia [facility] Jasmyne mayes 2022-05-13 00:00 Obstructive sleep apnea syndrome [facility] Jasmyne mayes 2022-05-13 00:00 Morbid (severe) obesity due to [facility] Care & excess calories [facility] Services Jasmyne mayes 2022-05-13 00:00 Hyperlipidemia, unspecified [facility] Jasmyne mayes 2022-05-13 00:00 Obstructive sleep apnea (adult) [facility]pediatric[facility] Jasmyne mayes 2022-05-16 00:00 Other and unspecified [facility] Care & hyperlipidemia Anc[facility] Services Jasmyne mayes 2022-05-16 00:00 Morbid obesity [facility] Jasmyne mayes 2022-05-16 00:00 Hyperlipidemia [facility] Jasmyne mayes 2022-05-16 00:00 Obstructive sleep apnea syndrome [facility] Jasmyne mayes 2022-05-16 00:00 Morbid (severe) obesity due to [facility] Care & excess calories [facility] Services Jasmyne mayes 2022-05-16 00:00 Hyperlipidemia, unspecified [facility] C sugey 2022-05-16 00:00 Obstructive sleep apnea (adult) [facility]ped[facility] Jasmyne mayes 2022-05-20 00:00 Other and unspecified [facility] Care & hyperlipidemia [facility] Services Jasmyne mayes 2022-05-20 00:00 Morbid obesity [facility] Jasmyne mayes 2022-05-20 00:00 Hyperlipidemia [facility] Jasmyne mayes 2022-05-20 00:00 Obstructive sleep apnea syndrome [facility] Jasmyne mayes 2022-05-20 00:00 Morbid (severe) obesity due to [facility] & excess calories [facility] Services Jasmyne mayes 2022-05-20 00:00 Hyperlipidemia, unspecified [facility] Jasmyne mayes 2022-05-20 00:00 Obstructive sleep apnea (adult) [facility]ped[facility] Jasmyne mayes 2022-05-27 00:00 Other and unspecified [facility] Care & hyperlipidemia [facility] Services Jasmyne mayes 2022-05-27 00:00 Morbid obesity [facility] Jasmyne mayes 2022-05-27 00:00 Hyperlipidemia [facility] Jasmyne mayes 2022-05-27 00:00 Obstructive sleep apnea syndrome [facility] Jasmyne myaes 2022-05-27 00:00 Morbid (severe) obesity due to [facility] & excess calories [facility] Services Jasmyne mayes 2022-05-27 00:00 Hyperlipidemia, unspecified [facility] Jasmyne mayes 2022-05-27 00:00 Obstructive sleep apnea (adult) [facility]ped[facility] Jasmyne mayes Procedures No information. Results/Labs test date author facility value unit interpret ation Result panel 1 (unknown) (no date) (unknown) [facility] (no value) (units [facility] nown[facility] Result panel 2 (unknown) (no date) (unknown) [facility] (no value) (units [facility] nown[facility] Result panel 3 (unknown) (no date) (unknown) [facility] (no value) (units ([facility] nown[facility] Clinic [facility] unknown[facility] Result panel 4 (unknown) (no date) (unknown) [facility] (no value) (units [facility] nown[facility] unknown[facility] Result panel 5 (unknown) (no date) (unknown) Walk-In (no value) (units (unk nown) [facility] Result panel 6 (unknown) (no date) (unknown) Walk-In (no value) [facility] Result panel 7 (unknown) (no date) (unknown) [facility]-In (no value) [facility] Result panel 8 (unknown) (no date) (unknown) [facility] (no value) [facility] Result panel 9 (unknown) (no date) (unknown) [facility] (no value) [facility] Result panel 10 (unknown) (no date) (unknown) Walk-[facility] (no value) [facility] Result panel 11 (unknown) (no date) (unknown) [facility] (no value) [facility] Result panel 12 (unknown) (no date) (unknown) Walk-[facility] (no value) [facility] Result panel 13 (unknown) (no date) (unknown) Walk-[facility] (no value) [facility] Result panel 14 (unknown) (no date) (unknown) [facility] (no value) [facility] Result panel 15 (unknown) (no date) (unknown) Walk-[facility] (no value) [facility] Result panel 16 (unknown) (no date) (unknown) Walk-[facility] (no value) [facility] Result panel 17 (unknown) (no date) (unknown) Walk-[facility] (no value) [facility] Result panel 18 (unknown) (no date) (unknown) [facility] (no value) [facility] Result panel 19 (unknown) (no date) (unknown) Walk-[facility] (no value) [facility] Result panel 20 (unknown) (no date) (unknown) Walk-[facility] (no value) [facility] Result panel 21 (unknown) (no date) (unknown) Walk-[facility] (no value) [facility] Result panel 22 (unknown) (no date) (unknown) Walk-[facility] (no value) [facility] Result panel 23 (unknown) (no date) (unknown) Walk-[facility] (no value) [facility] Result panel 24 (unknown) (no date) (unknown) Walk-[facility] (no value) [facility] Result panel 25 (unknown) (no date) (unknown) Walk-[facility] (no value) [facility] Result panel 26 (unknown) (no date) (unknown) Walk-In (no value) [facility] Result panel 27 (unknown) (no date) (unknown) Walk-[facility] (no value) [facility] Result panel 28 (unknown) (no date) (unknown) Walk-[facility] (no value) [facility] Result panel 29 (unknown) (no date) (unknown) Walk-[facility] (no value) [facility] Result panel 30 (unknown) (no date) (unknown) Walk-[facility] (no value) [facility] Result panel 31 (unknown) (no date) (unknown) Walk-[facility] (no value) [facility] Result panel 32 (unknown) (no date) (unknown) [facility] (no value) [facility] Result panel 33 (unknown) (no date) (unknown) Walk-In (no value) [facility] Result panel 34 (unknown) (no date) (unknown) Walk-[facility] (no value) [facility] Result panel 35 (unknown) (no date) (unknown) Walk-In (no value) [facility] Result panel 36 (unknown) (no date) (unknown) Walk-In (no value) [facility] Result panel 37 (unknown) (no date) (unknown) Walk-In (no value) [facility] Result panel 38 (unknown) (no date) (unknown) Walk-In (no value) [facility] Result panel 39 (unknown) (no date) (unknown) Walk-[facility] (no value) [facility] Result panel 40 (unknown) (no date) (unknown) Walk-In (no value) [facility] Result panel 41 (unknown) (no date) (unknown) Walk-[facility] (no value) [facility] Result panel 42 (unknown) (no date) (unknown) Walk-In (no value) [facility] Result panel 43 (unknown) (no date) (unknown) Walk-In (no value) [facility] Result panel 44 (unknown) (no date) (unknown) Walk-In (no value) [facility] Result panel 45 (unknown) (no date) (unknown) Walk-[facility] (no value) [facility] Result panel 46 (unknown) (no date) (unknown) Walk-[facility] (no value) [facility] Result panel 47 (unknown) (no date) (unknown) Walk-[facility] (no value) [facility] Result panel 48 (unknown) (no date) (unknown) [facility] (no value) [facility] Result panel 49 (unknown) (no date) (unknown) Walk-In (no value) [facility] Result panel 50 (unknown) (no date) (unknown) Walk-In (no value) [facility] Result panel 51 (unknown) (no date) (unknown) Walk-In (no value) [facility] Result panel 52 (unknown) (no date) (unknown) Walk-[facility] (no value) [facility] Result panel 53 (unknown) (no date) (unknown) Walk-[facility] (no value) [facility] Result panel 54 (unknown) (no date) (unknown) Walk-In (no value) [facility] Result panel 55 (unknown) (no date) (unknown) Walk-In (no value) [facility] Result panel 56 (unknown) (no date) (unknown) Walk-In (no value) [facility] Result panel 57 (unknown) (no date) (unknown) Walk-In (no value) [facility] Result panel 58 (unknown) (no date) (unknown) Walk-In (no value) [facility] Result panel 59 (unknown) (no date) (unknown) Walk-In (no value) [facility] Result panel 60 (unknown) (no date) (unknown) Walk-In (no value) [facility] Result panel 61 (unknown) (no date) (unknown) Walk-[facility] (no value) [facility] Result panel 62 (unknown) (no date) (unknown) Walk-[facility] (no value) [facility] Result panel 63 (unknown) (no date) (unknown) Walk-In (no value) [facility] Result panel 64 (unknown) (no date) (unknown) Walk-[facility] (no value) [facility] Result panel 65 (unknown) (no date) (unknown) Walk-[facility] (no value) [facility] Result panel 66 (unknown) (no date) (unknown) Walk-[facility] (no value) [facility] Result panel 67 (unknown) (no date) (unknown) Walk-[facility] (no value) [facility] Result panel 68 (unknown) (no date) (unknown) Walk-[facility] (no value) [facility] Result panel 69 (unknown) (no date) (unknown) Walk-In (no value) [facility] Result panel 70 (unknown) (no date) (unknown) Walk-In (no value) [facility] Result panel 71 (unknown) (no date) (unknown) Walk-[facility] (no value) [facility] Result panel 72 (unknown) (no date) (unknown) Walk-In (no value) [facility] Result panel 73 (unknown) (no date) (unknown) Walk-In (no value) [facility] Result panel 74 (unknown) (no date) (unknown) Walk-In (no value) [facility] Result panel 75 (unknown) (no date) (unknown) Walk-In (no value) [facility] Result panel 76 (unknown) (no date) (unknown) Walk-In (no value) [facility] Result panel 77 (unknown) (no date) (unknown) Walk-In (no value) [facility] Result panel 78 (unknown) (no date) (unknown) Walk-In (no value) [facility] Result panel 79 (unknown) (no date) (unknown) Walk-In (no value) [facility] Result panel 80 (unknown) (no date) (unknown) Walk-In (no value) [facility] Result panel 81 (unknown) (no date) (unknown) Walk-In (no value) [facility] Result panel 82 (unknown) (no date) (unknown) Walk-[facility] (no value) [facility] Result panel 83 (unknown) (no date) (unknown) Walk-In (no value) [facility] Result panel 84 (unknown) (no date) (unknown) Walk-In (no value) [facility] Result panel 85 (unknown) (no date) (unknown) Walk-In (no value) [facility] Result panel 86 (unknown) (no date) (unknown) Walk-In (no value) [facility] Result panel 87 (unknown) (no date) (unknown) Walk-In (no value) [facility] Result panel 88 (unknown) (no date) (unknown) Walk-In (no value) [facility] Result panel 89 (unknown) (no date) (unknown) Walk-In (no value) [facility] Result panel 90 (unknown) (no date) (unknown) Walk-In (no value) [facility] Result panel 91 (unknown) (no date) (unknown) Walk-[facility] (no value) [facility] Result panel 92 (unknown) (no date) (unknown) Walk-In (no value) [facility] Result panel 93 (unknown) (no date) (unknown) Walk-In (no value) [facility] Result panel 94 (unknown) (no date) (unknown) [facility] (no value) [facility] Result panel 95 (unknown) (no date) (unknown) Walk-In (no value) [facility] Result panel 96 (unknown) (no date) (unknown) [facility] (no value) [facility] Result panel 97 (unknown) (no date) (unknown) Walk-In (no value) [facility] Result panel 98 (unknown) (no date) (unknown) Walk-In (no value) [facility] Result panel 99 (unknown) (no date) (unknown) Walk-In (no value) [facility] Result panel 100 (unknown) (no date) (unknown) Walk-In (no value) [facility] Result panel 101 (unknown) (no date) (unknown) Walk-In (no value) [facility] Result panel 102 (unknown) (no date) (unknown) Walk-[facility] (no value) [facility] Result panel 103 (unknown) (no date) (unknown) Walk-In (no value) [facility] Result panel 104 (unknown) (no date) (unknown) Walk-In (no value) [facility] Result panel 105 (unknown) (no date) (unknown) Walk-In (no value) [facility] Result panel 106 (unknown) (no date) (unknown) Walk-In (no value) [facility] Result panel 107 (unknown) (no date) (unknown) Walk-In (no value) [facility] Result panel 108 (unknown) (no date) (unknown) Walk-In (no value) [facility] Result panel 109 (unknown) (no date) (unknown) Walk-In (no value) [facility] Result panel 110 (unknown) (no date) (unknown) Walk-[facility] (no value) [facility] Result panel 111 (unknown) (no date) (unknown) Walk-In (no value) [facility] Result panel 112 (unknown) (no date) (unknown) Walk-In (no value) [facility] Result panel 113 (unknown) (no date) (unknown) Walk-In (no value) [facility] Result panel 114 (unknown) (no date) (unknown) Walk-In (no value) [facility] Result panel 115 (unknown) (no date) (unknown) Walk-In (no value) [facility] Result panel 116 (unknown) (no date) (unknown) Walk-In (no value) [facility] Result panel 117 (unknown) (no date) (unknown) Walk-In (no value) [facility] Result panel 118 (unknown) (no date) (unknown) Walk-In (no value) [facility] Result panel 119 (unknown) (no date) (unknown) Walk-In (no value) [facility] Result panel 120 (unknown) (no date) (unknown) Walk-In (no value) [facility] Result panel 121 (unknown) (no date) (unknown) Walk-[facility] (no value) [facility] Result panel 122 (unknown) (no date) (unknown) Walk-In (no value) [facility] Result panel 123 (unknown) (no date) (unknown) [facility] (no value) [facility] Result panel 124 (unknown) (no date) (unknown) Walk-[facility] (no value) [facility] Result panel 125 (unknown) (no date) (unknown) Walk-In (no value) [facility] Result panel 126 (unknown) (no date) (unknown) Walk-In (no value) [facility] Result panel 127 (unknown) (no date) (unknown) Walk-[facility] (no value) [facility] Result panel 128 (unknown) (no date) (unknown) Walk-[facility] (no value) [facility] Result panel 129 (unknown) (no date) (unknown) Walk-[facility] (no value) [facility] Result panel 130 (unknown) (no date) (unknown) Walk-[facility] (no value) [facility] Result panel 131 (unknown) (no date) (unknown) Walk-[facility] (no value) [facility] Result panel 132 (unknown) (no date) (unknown) Walk-In (no value) [facility] Result panel 133 (unknown) (no date) (unknown) Walk-[facility] (no value) [facility] Result panel 134 (unknown) (no date) (unknown) Walk-[facility] (no value) [facility] Result panel 135 (unknown) (no date) (unknown) Walk-[facility] (no value) [facility] Result panel 136 (unknown) (no date) (unknown) Walk-[facility] (no value) [facility] Result panel 137 (unknown) (no date) (unknown) Walk-In (no value) [facility] Result panel 138 (unknown) (no date) (unknown) Walk-In (no value) [facility] Result panel 139 (unknown) (no date) (unknown) Walk-[facility] (no value) [facility] Result panel 140 (unknown) (no date) (unknown) Walk-In (no value) [facility] Result panel 141 (unknown) (no date) (unknown) Walk-In (no value) [facility] Result panel 142 (unknown) (no date) (unknown) Walk-In (no value) [facility] Result panel 143 (unknown) (no date) (unknown) Walk-[facility] (no value) [facility] Result panel 144 (unknown) (no date) (unknown) Walk-[facility] (no value) [facility] Result panel 145 (unknown) (no date) (unknown) Walk-In (no value) [facility] Result panel 146 (unknown) (no date) (unknown) Walk-[facility] (no value) [facility] Result panel 147 (unknown) (no date) (unknown) Walk-In (no value) [facility] Result panel 148 (unknown) (no date) (unknown) Walk-[facility] (no value) [facility] Result panel 149 (unknown) (no date) (unknown) Walk-[facility] (no value) [facility] Result panel 150 (unknown) (no date) (unknown) Walk-[facility] (no value) [facility] Result panel 151 (unknown) (no date) (unknown) [facility] (no value) [facility] Result panel 152 (unknown) (no date) (unknown) Walk-[facility] (no value) [facility] Result panel 153 (unknown) (no date) (unknown) [facility] (no value) [facility] Result panel 154 (unknown) (no date) (unknown) Walk-[facility] (no value) [facility] Result panel 155 (unknown) (no date) (unknown) Walk-[facility] (no value) [facility] Result panel 156 (unknown) (no date) (unknown) Walk-[facility] (no value) [facility] Result panel 157 (unknown) (no date) (unknown) Walk-[facility] (no value) [facility] Result panel 158 (unknown) (no date) (unknown) Walk-[facility] (no value) [facility] Result panel 159 (unknown) (no date) (unknown) [facility]-In (no value) [facility] Result panel 160 (unknown) (no date) (unknown) Walk-[facility] (no value) [facility] Result panel 161 (unknown) (no date) (unknown) Walk-In (no value) [facility] Result panel 162 (unknown) (no date) (unknown) Walk-[facility] (no value) [facility] Result panel 163 (unknown) (no date) (unknown) Walk-[facility] (no value) [facility] Result panel 164 (unknown) (no date) (unknown) Walk-[facility] (no value) [facility] Result panel 165 (unknown) (no date) (unknown) Walk-[facility] (no value) [facility] Result panel 166 (unknown) (no date) (unknown) [facility] (no value) [facility] Result panel 167 (unknown) (no date) (unknown) Walk-[facility] (no value) [facility] Result panel 168 (unknown) (no date) (unknown) Walk-In (no value) [facility] Result panel 169 (unknown) (no date) (unknown) Walk-In (no value) [facility] Result panel 170 (unknown) (no date) (unknown) Walk-In (no value) [facility] Result panel 171 (unknown) (no date) (unknown) Walk-In (no value) [facility] Result panel 172 (unknown) (no date) (unknown) Walk-In (no value) [facility] Result panel 173 (unknown) (no date) (unknown) Walk-In (no value) [facility] Result panel 174 (unknown) (no date) (unknown) Walk-In (no value) [facility] Result panel 175 (unknown) (no date) (unknown) Walk-In (no value) [facility] Result panel 176 (unknown) (no date) (unknown) Walk-In (no value) [facility] Result panel 177 (unknown) (no date) (unknown) Walk-In (no value) [facility] Result panel 178 (unknown) (no date) (unknown) Walk-In (no value) [facility] Result panel 179 (unknown) (no date) (unknown) Walk-In (no value) [facility] Result panel 180 (unknown) (no date) (unknown) Walk-In (no value) [facility] Result panel 181 (unknown) (no date) (unknown) Walk-In (no value) [facility] Result panel 182 (unknown) (no date) (unknown) Walk-In (no value) [facility] Result panel 183 (unknown) (no date) (unknown) Walk-In (no value) [facility] Result panel 184 (unknown) (no date) (unknown) Walk-In (no value) [facility] Result panel 185 (unknown) (no date) (unknown) Walk-In (no value) [facility] Result panel 186 (unknown) (no date) (unknown) Walk-In (no value) [facility] Result panel 187 (unknown) (no date) (unknown) Walk-In (no value) [facility] Result panel 188 (unknown) (no date) (unknown) Walk-In (no value) [facility] Result panel 189 (unknown) (no date) (unknown) Walk-In (no value) [facility] Result panel 190 (unknown) (no date) (unknown) Walk-In (no value) [facility] Result panel 191 (unknown) (no date) (unknown) Walk-In (no value) [facility] Result panel 192 (unknown) (no date) (unknown) Walk-In (no value) [facility] Result panel 193 (unknown) (no date) (unknown) Walk-In (no value) [facility] Result panel 194 (unknown) (no date) (unknown) Walk-In (no value) [facility] Result panel 195 (unknown) (no date) (unknown) Walk-In (no value) [facility] Result panel 196 (unknown) (no date) (unknown) Walk-In (no value) [facility] Result panel 197 (unknown) (no date) (unknown) Walk-In (no value) [facility] Result panel 198 (unknown) (no date) (unknown) Walk-In (no value) [facility] Result panel 199 (unknown) (no date) (unknown) Walk-In (no value) [facility] Result panel 200 (unknown) (no date) (unknown) Walk-In (no value) [facility] Result panel 201 (unknown) (no date) (unknown) Walk-In (no value) [facility] Result panel 202 (unknown) (no date) (unknown) Walk-In (no value) [facility] Result panel 203 (unknown) (no date) (unknown) Walk-In (no value) [facility] Result panel 204 (unknown) (no date) (unknown) Walk-In (no value) [facility] Result panel 205 (unknown) (no date) (unknown) Walk-In (no value) [facility] Result panel 206 (unknown) (no date) (unknown) Walk-In (no value) [facility] Result panel 207 (unknown) (no date) (unknown) Walk-In (no value) [facility] Result panel 208 (unknown) (no date) (unknown) Walk-In (no value) [facility] Result panel 209 (unknown) (no date) (unknown) Walk-In (no value) [facility] Result panel 210 (unknown) (no date) (unknown) Walk-In (no value) [facility] Result panel 211 (unknown) (no date) (unknown) Walk-In (no value) [facility] Result panel 212 (unknown) (no date) (unknown) Walk-In (no value) [facility] Result panel 213 (unknown) (no date) (unknown) Walk-In (no value) [facility] Result panel 214 (unknown) (no date) (unknown) Walk-In (no value) [facility] Result panel 215 (unknown) (no date) (unknown) Walk-In (no value) [facility] Result panel 216 (unknown) (no date) (unknown) Walk-In (no value) [facility] Result panel 217 (unknown) (no date) (unknown) Walk-In (no value) [facility] Result panel 218 (unknown) (no date) (unknown) Walk-In (no value) [facility] Result panel 219 (unknown) (no date) (unknown) Walk-In (no value) [facility] Result panel 220 (unknown) (no date) (unknown) Walk-In (no value) [facility] Result panel 221 (unknown) (no date) (unknown) Walk-In (no value) [facility] Result panel 222 (unknown) (no date) (unknown) Walk-In (no value) [facility] Result panel 223 (unknown) (no date) (unknown) Walk-In (no value) [facility] Result panel 224 (unknown) (no date) (unknown) Walk-In (no value) [facility] Result panel 225 (unknown) (no date) (unknown) Walk-In (no value) [facility] Result panel 226 (unknown) (no date) (unknown) Walk-In (no value) [facility] Result panel 227 (unknown) (no date) (unknown) Walk-In (no value) [facility] Result panel 228 (unknown) (no date) (unknown) Walk-In (no value) [facility] Result panel 229 (unknown) (no date) (unknown) Walk-In (no value) [facility] Result panel 230 (unknown) (no date) (unknown) Walk-In (no value) [facility] Result panel 231 (unknown) (no date) (unknown) Walk-In (no value) [facility] Result panel 232 (unknown) (no date) (unknown) Walk-In (no value) [facility] Result panel 233 (unknown) (no date) (unknown) Walk-In (no value) [facility] Result panel 234 (unknown) (no date) (unknown) Walk-In (no value) [facility] Result panel 235 (unknown) (no date) (unknown) Walk-In (no value) [facility] Result panel 236 (unknown) (no date) (unknown) Walk-In (no value) [facility] Result panel 237 (unknown) (no date) (unknown) Walk-In (no value) [facility] Result panel 238 (unknown) (no date) (unknown) Walk-In (no value) [facility] Result panel 239 (unknown) (no date) (unknown) Walk-In (no value) [facility] Result panel 240 (unknown) (no date) (unknown) Walk-In (no value) [facility] Result panel 241 (unknown) (no date) (unknown) Walk-In (no value) [facility] Result panel 242 (unknown) (no date) (unknown) Walk-In (no value) [facility] Result panel 243 (unknown) (no date) (unknown) Walk-In (no value) [facility] Result panel 244 (unknown) (no date) (unknown) Walk-In (no value) [facility] Result panel 245 (unknown) (no date) (unknown) Walk-In (no value) [facility] Result panel 246 (unknown) (no date) (unknown) Walk-In (no value) [facility] Result panel 247 (unknown) (no date) (unknown) Walk-In (no value) [facility] Result panel 248 (unknown) (no date) (unknown) Walk-In (no value) [facility] Result panel 249 (unknown) (no date) (unknown) Walk-In (no value) [facility] Result panel 250 (unknown) (no date) (unknown) Walk-In (no value) [facility] Result panel 251 (unknown) (no date) (unknown) Walk-In (no value) [facility] Result panel 252 (unknown) (no date) (unknown) Walk-In (no value) [facility] Result panel 253 (unknown) (no date) (unknown) Walk-In (no value) [facility] Result panel 254 (unknown) (no date) (unknown) Walk-In (no value) [facility] Result panel 255 (unknown) (no date) (unknown) Walk-In (no value) [facility] Result panel 256 (unknown) (no date) (unknown) Walk-In (no value) [facility] Result panel 257 (unknown) (no date) (unknown) Walk-In (no value) [facility] Result panel 258 (unknown) (no date) (unknown) Walk-In (no value) [facility] Result panel 259 (unknown) (no date) (unknown) Walk-In (no value) [facility] Result panel 260 (unknown) (no date) (unknown) Walk-In (no value) [facility] Result panel 261 (unknown) (no date) (unknown) Walk-In (no value) [facility] Result panel 262 (unknown) (no date) (unknown) Walk-In (no value) [facility] Result panel 263 (unknown) (no date) (unknown) [facility]-In (no value) [facility] Result panel 264 (unknown) (no date) (unknown) Walk-In (no value) [facility] Result panel 265 (unknown) (no date) (unknown) Walk-In (no value) [facility] Result panel 266 (unknown) (no date) (unknown) Walk-In (no value) [facility] Result panel 267 (unknown) (no date) (unknown) Walk-In (no value) [facility] Result panel 268 (unknown) (no date) (unknown) Walk-In (no value) [facility] Result panel 269 (unknown) (no date) (unknown) Walk-In (no value) [facility] Result panel 270 (unknown) (no date) (unknown) Walk-In (no value) [facility] Result panel 271 (unknown) (no date) (unknown) Walk-In (no value) [facility] Result panel 272 (unknown) (no date) (unknown) Walk-In (no value) [facility] Result panel 273 (unknown) (no date) (unknown) Walk-In (no value) [facility] Result panel 274 (unknown) (no date) (unknown) Walk-In (no value) [facility] Result panel 275 (unknown) (no date) (unknown) Walk-In (no value) [facility] Result panel 276 (unknown) (no date) (unknown) Walk-In (no value) [facility] Result panel 277 (unknown) (no date) (unknown) Walk-In (no value) [facility] Result panel 278 (unknown) (no date) (unknown) Walk-In (no value) [facility] Result panel 279 (unknown) (no date) (unknown) Walk-In (no value) [facility] Result panel 280 (unknown) (no date) (unknown) Walk-In (no value) [facility] Result panel 281 (unknown) (no date) (unknown) Walk-In (no value) [facility] Result panel 282 (unknown) (no date) (unknown) Walk-In (no value) [facility] Result panel 283 (unknown) (no date) (unknown) Walk-In (no value) [facility] Result panel 284 (unknown) (no date) (unknown) Walk-In (no value) [facility] Result panel 285 (unknown) (no date) (unknown) Walk-In (no value) [facility] Result panel 286 (unknown) (no date) (unknown) Walk-In (no value) [facility] Result panel 287 (unknown) (no date) (unknown) Walk-In (no value) [facility] Result panel 288 (unknown) (no date) (unknown) Walk-In (no value) [facility] Result panel 289 (unknown) (no date) (unknown) Walk-In (no value) [facility] Result panel 290 (unknown) (no date) (unknown) Walk-In (no value) [facility] Result panel 291 (unknown) (no date) (unknown) Walk-In (no value) [facility] Result panel 292 (unknown) (no date) (unknown) Walk-In (no value) [facility] Result panel 293 (unknown) (no date) (unknown) Walk-In (no value) [facility] Result panel 294 (unknown) (no date) (unknown) Walk-In (no value) [facility] Result panel 295 (unknown) (no date) (unknown) Walk-In (no value) [facility] Result panel 296 (unknown) (no date) (unknown) Walk-In (no value) [facility] Result panel 297 (unknown) (no date) (unknown) Walk-In (no value) [facility] Result panel 298 (unknown) (no date) (unknown) Walk-In (no value) [facility] Result panel 299 (unknown) (no date) (unknown) Walk-In (no value) [facility] Result panel 300 (unknown) (no date) (unknown) Walk-In (no value) [facility] Result panel 301 (unknown) (no date) (unknown) Walk-In (no value) [facility] Result panel 302 (unknown) (no date) (unknown) Walk-In (no value) [facility] Result panel 303 (unknown) (no date) (unknown) Walk-In (no value) [facility] Result panel 304 (unknown) (no date) (unknown) Walk-In (no value) [facility] Result panel 305 (unknown) (no date) (unknown) Walk-In (no value) [facility] Result panel 306 (unknown) (no date) (unknown) Walk-In (no value) [facility] Result panel 307 (unknown) (no date) (unknown) Walk-In (no value) [facility] Result panel 308 (unknown) (no date) (unknown) Walk-In (no value) [facility] Result panel 309 (unknown) (no date) (unknown) Walk-In (no value) ([facility] Result panel 310 (unknown) (no date) (unknown) Walk-In (no value) ([facility] Result panel 311 (unknown) (no date) (unknown) Walk-In (no value) [facility] Result panel 312 (unknown) (no date) (unknown) Walk-In (no value) [facility] Result panel 313 (unknown) (no date) (unknown) Walk-In (no value) [facility] Result panel 314 (unknown) (no date) (unknown) Walk-In (no value) [facility] Result panel 315 (unknown) (no date) (unknown) Walk-In (no value) [facility] Result panel 316 (unknown) (no date) (unknown) Walk-In (no value) [facility] Result panel 317 (unknown) (no date) (unknown) Walk-In (no value) [facility] Result panel 318 (unknown) (no date) (unknown) Walk-In (no value) [facility] Result panel 319 (unknown) (no date) (unknown) Walk-In (no value) [facility] Result panel 320 (unknown) (no date) (unknown) [facility] (no value) [facility] Result panel 321 (unknown) (no date) (unknown) Walk-In (no value) [facility] Result panel 322 (unknown) (no date) (unknown) Walk-In (no value) [facility] Result panel 323 (unknown) (no date) (unknown) Walk-In (no value) [facility] Result panel 324 (unknown) (no date) (unknown) Walk-In (no value) [facility] Result panel 325 (unknown) (no date) (unknown) Walk-In (no value) [facility] Result panel 326 (unknown) (no date) (unknown) Walk-[facility] (no value) [facility] Result panel 327 (unknown) (no date) (unknown) Walk-In (no value) [facility] Result panel 328 (unknown) (no date) (unknown) Walk-[facility] (no value) [facility] Result panel 329 (unknown) (no date) (unknown) Walk-In (no value) [facility] Result panel 330 (unknown) (no date) (unknown) Walk-In (no value) [facility] Result panel 331 (unknown) (no date) (unknown) Walk-In (no value) [facility] Result panel 332 (unknown) (no date) (unknown) Walk-In (no value) [facility] Result panel 333 (unknown) (no date) (unknown) Walk-[facility] (no value) [facility] Result panel 334 (unknown) (no date) (unknown) Walk-In (no value) [facility] Result panel 335 (unknown) (no date) (unknown) Walk-In (no value) [facility] Result panel 336 (unknown) (no date) (unknown) Walk-In (no value) [facility] Result panel 337 (unknown) (no date) (unknown) Walk-In (no value) [facility] Result panel 338 (unknown) (no date) (unknown) Walk-In (no value) [facility] Result panel 339 (unknown) (no date) (unknown) Walk-In (no value) [facility] Result panel 340 (unknown) (no date) (unknown) Walk-In (no value) [facility] Result panel 341 (unknown) (no date) (unknown) Walk-In (no value) [facility] Result panel 342 (unknown) (no date) (unknown) Walk-In (no value) [facility] Result panel 343 (unknown) (no date) (unknown) Walk-In (no value) [facility] Result panel 344 (unknown) (no date) (unknown) Walk-In (no value) [facility] Result panel 345 (unknown) (no date) (unknown) Walk-In (no value) [facility] Result panel 346 (unknown) (no date) (unknown) [facility] (no value) [facility] Primary unknown) [facility] Result panel 347 (unknown) (no date) (unknown) [facility] Result panel 348 (unknown) (no date) (unknown) [facility] (no value) [facility] Result panel 349 (unknown) (no date) (unknown) [facility] (no value) [facility] Result panel 350 (unknown) (no date) (unknown) [facility] (no value) [facility] Result panel 351 (unknown) (no date) (unknown) [facility] (no value) [facility] Result panel 352 (unknown) (no date) (unknown) [facility] (no value) [facility] Result panel 353 (unknown) (no date) (unknown) [facility] (no value) [facility] Result panel 354 (unknown) (no date) (unknown) [facility] (no value) [facility] Result panel 355 (unknown) (no date) (unknown) [facility] (no value) [facility] Result panel 356 (unknown) (no date) (unknown) [facility] (no value) [facility] Result panel 357 (unknown) (no date) (unknown) [facility] (no value) [facility] Result panel 358 (unknown) (no date) (unknown) [facility] (no value) [facility] Result panel 359 (unknown) (no date) (unknown) [facility] (no value) [facility] Result panel 360 (unknown) (no date) (unknown) [facility] (no value) [facility] Result panel 361 (unknown) (no date) (unknown) [facility] (no value) [facility] Result panel 362 (unknown) (no date) (unknown) [facility] (no value) [facility] Result panel 363 (unknown) (no date) (unknown) [facility] (no value) [facility] Result panel 364 (unknown) (no date) (unknown) [facility] (no value) [facility] Result panel 365 (unknown) (no date) (unknown) [facility] (no value) [facility] Result panel 366 (unknown) (no date) (unknown) [facility] (no value) [facility] Result panel 367 (unknown) (no date) (unknown) [facility] (no value) [facility] Result panel 368 (unknown) (no date) (unknown) [facility] (no value) [facility] Result panel 369 (unknown) (no date) (unknown) [facility] (no value) [facility] Result panel 370 (unknown) (no date) (unknown) [facility] (no value) [facility] Result panel 371 (unknown) (no date) (unknown) [facility] (no value) [facility] Result panel 372 (unknown) (no date) (unknown) [facility] (no value) [facility] Result panel 373 (unknown) (no date) (unknown) [facility] (no value) [facility] Result panel 374 (unknown) (no date) (unknown) [facility] (no value) [facility] Result panel 375 (unknown) (no date) (unknown) [facility] (no value) [facility] Result panel 376 (unknown) (no date) (unknown) [facility] (no value) [facility] Result panel 377 (unknown) (no date) (unknown) [facility]no value) [facility] Result panel 378 (unknown) (no date) (unknown) [facility] (no value) [facility] Result panel 379 (unknown) (no date) (unknown) [facility] (no value) [facility] Result panel 380 (unknown) (no date) (unknown) [facility] (no value) [facility] Result panel 381 (unknown) (no date) (unknown) [facility] (no value) [facility] Result panel 382 (unknown) (no date) (unknown) [facility] (no value) [facility] Result panel 383 (unknown) (no date) (unknown) [facility] (no value) [facility] Result panel 384 (unknown) (no date) (unknown) [facility] (no value) [facility] Result panel 385 (unknown) (no date) (unknown) [facility] (no value) [facility] Result panel 386 (unknown) (no date) (unknown) [facility] (no value) [facility] Result panel 387 (unknown) (no date) (unknown) [facility] (no value) [facility] Result panel 388 (unknown) (no date) (unknown) [facility] (no value) [facility] Result panel 389 (unknown) (no date) (unknown) [facility] (no value) [facility] Result panel 390 (unknown) (no date) (unknown) [facility] (no value) [facility] Result panel 391 (unknown) (no date) (unknown) [facility] (no value) [facility] Result panel 392 (unknown) (no date) (unknown) [facility] (no value) [facility] Result panel 393 (unknown) (no date) (unknown) [facility] (no value) [facility] Result panel 394 (unknown) (no date) (unknown) Walk-[facility] (no value) [facility] Result panel 395 (unknown) (no date) (unknown) [facility] (no value) [facility] Result panel 396 (unknown) (no date) (unknown) Walk-[facility] (no value) [facility] Result panel 397 (unknown) (no date) (unknown) Walk-[facility] (no value) [facility] Result panel 398 (unknown) (no date) (unknown) [facility] (no value) [facility] Result panel 399 (unknown) (no date) (unknown) [facility] (no value) [facility] Result panel 400 (unknown) (no date) (unknown) [facility] (no value) [facility] Result panel 401 (unknown) (no date) (unknown) [facility] (no value) [facility] Result panel 402 (unknown) (no date) (unknown) [facility] (no value) [facility] Result panel 403 (unknown) (no date) (unknown) [facility] (no value) [facility] Result panel 404 (unknown) (no date) (unknown) [facility] (no value) [facility] Result panel 405 (unknown) (no date) (unknown) [facility] (no value) [facility] Result panel 406 (unknown) (no date) (unknown) [facility] (no value) [facility] Result panel 407 (unknown) (no date) (unknown) [facility] (no value) [facility] Result panel 408 (unknown) (no date) (unknown) [facility] (no value) [facility] Result panel 409 (unknown) (no date) (unknown) [facility] (no value) [facility] Result panel 410 (unknown) (no date) (unknown) [facility] (no value) [facility] Result panel 411 (unknown) (no date) (unknown) [facility] (no value) [facility] Result panel 412 (unknown) (no date) (unknown) [facility] (no value) [facility] Result panel 413 (unknown) (no date) (unknown) [facility] (no value) [facility] Result panel 414 (unknown) (no date) (unknown) [facility] (no value) [facility] Result panel 415 (unknown) (no date) (unknown) [facility] (no value) [facility] Result panel 416 (unknown) (no date) (unknown) [facility] (no value) [facility] Result panel 417 (unknown) (no date) (unknown) [facility] (no value) [facility] Result panel 418 (unknown) (no date) (unknown) [facility] (no value) [facility] Result panel 419 (unknown) (no date) (unknown) [facility] (no value) [facility] Result panel 420 (unknown) (no date) (unknown) [facility] (no value) [facility] Result panel 421 (unknown) (no date) (unknown) [facility] (no value) [facility] Result panel 422 (unknown) (no date) (unknown) [facility] (no value) [facility] Result panel 423 (unknown) (no date) (unknown) [facility] (no value) [facility] Result panel 424 (unknown) (no date) (unknown) [facility] (no value) [facility] Result panel 425 (unknown) (no date) (unknown) [facility] (no value) [facility] Result panel 426 (unknown) (no date) (unknown) [facility] (no value) [facility] Result panel 427 (unknown) (no date) (unknown) Walk-[facility] (no value) [facility] Result panel 428 (unknown) (no date) (unknown) [facility] (no value) [facility] Result panel 429 (unknown) (no date) (unknown) [facility] (no value) [facility] Result panel 430 (unknown) (no date) (unknown) Walk-[facility] (no value) [facility] Result panel 431 (unknown) (no date) (unknown) [facility] (no value) [facility] Result panel 432 (unknown) (no date) (unknown) [facility] (no value) [facility] Result panel 433 (unknown) (no date) (unknown) [facility] (no value) [facility] Result panel 434 (unknown) (no date) (unknown) [facility] (no value) [facility] Result panel 435 (unknown) (no date) (unknown) [facility] (no value) [facility] Result panel 436 (unknown) (no date) (unknown) [facility] (no value) [facility] Result panel 437 (unknown) (no date) (unknown) [facility] (no value) [facility] Result panel 438 (unknown) (no date) (unknown) [facility] (no value) [facility] Result panel 439 (unknown) (no date) (unknown) [facility] (no value) [facility] Result panel 440 (unknown) (no date) (unknown) [facility] (no value) [facility] Result panel 441 (unknown) (no date) (unknown) [facility] (no value) [facility] Result panel 442 (unknown) (no date) (unknown) [facility] (no value) [facility] Result panel 443 (unknown) (no date) (unknown) [facility] (no value) [facility] Result panel 444 (unknown) (no date) (unknown) [facility] (no value) [facility] Result panel 445 (unknown) (no date) (unknown) [facility] (no value) [facility] Result panel 446 (unknown) (no date) (unknown) [facility] (no value) [facility] Result panel 447 (unknown) (no date) (unknown) [facility] (no value) [facility] Result panel 448 (unknown) (no date) (unknown) [facility] (no value) [facility] Result panel 449 (unknown) (no date) (unknown) [facility] (no value) [facility] Result panel 450 (unknown) (no date) (unknown) [facility] (no value) [facility] Result panel 451 (unknown) (no date) (unknown) [facility] (no value) [facility] Result panel 452 (unknown) (no date) (unknown) [facility] (no value) [facility] Result panel 453 (unknown) (no date) (unknown) [facility] (no value) [facility] Result panel 454 (unknown) (no date) (unknown) [facility] (no value) [facility] Result panel 455 (unknown) (no date) (unknown) [facility] (no value) [facility] Result panel 456 (unknown) (no date) (unknown) [facility] (no value) [facility] Result panel 457 (unknown) (no date) (unknown) [facility] (no value) [facility] Result panel 458 (unknown) (no date) (unknown) [facility] (no value) [facility] Result panel 459 (unknown) (no date) (unknown) Walk-[facility] (no value) [facility] Result panel 460 (unknown) (no date) (unknown) Walk-[facility] (no value) [facility] Result panel 461 (unknown) (no date) (unknown) [facility] (no value) [facility] Result panel 462 (unknown) (no date) (unknown) [facility] (no value) [facility] Result panel 463 (unknown) (no date) (unknown) [facility] (no value) [facility] Result panel 464 (unknown) (no date) (unknown) [facility] (no value) [facility] Result panel 465 (unknown) (no date) (unknown) [facility] (no value) [facility] Result panel 466 (unknown) (no date) (unknown) [facility] (no value) [facility] Result panel 467 (unknown) (no date) (unknown) [facility] (no value) [facility] Result panel 468 (unknown) (no date) (unknown) [facility] (no value) [facility] Result panel 469 (unknown) (no date) (unknown) [facility] (no value) [facility] Result panel 470 (unknown) (no date) (unknown) [facility] (no value) [facility] Result panel 471 (unknown) (no date) (unknown) [facility] (no value) [facility] Result panel 472 (unknown) (no date) (unknown) [facility] (no value) [facility] Result panel 473 (unknown) (no date) (unknown) [facility] (no value) [facility] Result panel 474 (unknown) (no date) (unknown) [facility] (no value) [facility] Result panel 475 (unknown) (no date) (unknown) [facility] (no value) [facility] Result panel 476 (unknown) (no date) (unknown) [facility] (no value) [facility] Result panel 477 (unknown) (no date) (unknown) [facility] (no value) [facility] Result panel 478 (unknown) (no date) (unknown) [facility] (no value) [facility] Result panel 479 (unknown) (no date) (unknown) [facility] (no value) [facility] Result panel 480 (unknown) (no date) (unknown) Walk-[facility] (no value) [facility] Result panel 481 (unknown) (no date) (unknown) [facility] (no value) [facility] Result panel 482 (unknown) (no date) (unknown) [facility] (no value) [facility] Result panel 483 (unknown) (no date) (unknown) [facility] (no value) [facility] Result panel 484 (unknown) (no date) (unknown) [facility] (no value) [facility] Result panel 485 (unknown) (no date) (unknown) [facility] (no value) [facility] Result panel 486 (unknown) (no date) (unknown) [facility] (no value) [facility] Result panel 487 (unknown) (no date) (unknown) [facility] (no value) [facility] Result panel 488 (unknown) (no date) (unknown) [facility] (no value) [facility] Result panel 489 (unknown) (no date) (unknown) Walk-[facility] (no value) [facility] Result panel 490 (unknown) (no date) (unknown) [facility] (no value) [facility] Result panel 491 (unknown) (no date) (unknown) Walk-[facility] (no value) [facility] Result panel 492 (unknown) (no date) (unknown) [facility] (no value) [facility] Result panel 493 (unknown) (no date) (unknown) [facility] (no value) [facility] Result panel 494 (unknown) (no date) (unknown) [facility] (no value) [facility] Result panel 495 (unknown) (no date) (unknown) [facility] (no value) [facility] Result panel 496 (unknown) (no date) (unknown) [facility] (no value) [facility] Result panel 497 (unknown) (no date) (unknown) [facility] (no value) [facility] Result panel 498 (unknown) (no date) (unknown) [facility] (no value) [facility] Result panel 499 (unknown) (no date) (unknown) [facility] (no value) [facility] Result panel 500 (unknown) (no date) (unknown) [facility] (no value) [facility] Result panel 501 (unknown) (no date) (unknown) [facility] (no value) [facility] Result panel 502 (unknown) (no date) (unknown) [facility] (no value) [facility] Result panel 503 (unknown) (no date) (unknown) [facility] (no value) [facility] Result panel 504 (unknown) (no date) (unknown) [facility] (no value) [facility] Result panel 505 (unknown) (no date) (unknown) [facility] (no value) [facility] Result panel 506 (unknown) (no date) (unknown) [facility] (no value) [facility] Result panel 507 (unknown) (no date) (unknown) [facility] (no value) [facility] Result panel 508 (unknown) (no date) (unknown) [facility] (no value) [facility] Result panel 509 (unknown) (no date) (unknown) [facility] (no value) [facility] Result panel 510 (unknown) (no date) (unknown) [facility] (no value) [facility] Result panel 511 (unknown) (no date) (unknown) [facility] (no value) [facility] Result panel 512 (unknown) (no date) (unknown) [facility] (no value) [facility] Result panel 513 (unknown) (no date) (unknown) [facility] (no value) [facility] Result panel 514 (unknown) (no date) (unknown) [facility] (no value) [facility] Result panel 515 (unknown) (no date) (unknown) Walk-[facility] (no value) [facility] Result panel 516 (unknown) (no date) (unknown) Walk-[facility] (no value) [facility] [facility] Result panel 517 (unknown) (no date) (unknown) [facility] (no value[facility] Result panel 518 (unknown) (no date) (unknown) [facility] (no value) [facility] Result panel 519 (unknown) (no date) (unknown) [facility] (no value) [facility] Result panel 520 (unknown) (no date) (unknown) [facility] (no value) [facility] Result panel 521 (unknown) (no date) (unknown) [facility] (no value) [facility] Result panel 522 (unknown) (no date) (unknown) [facility] (no value) [facility] Result panel 523 (unknown) (no date) (unknown) [facility] (no value) [facility] Result panel 524 (unknown) (no date) (unknown) [facility] (no value) [facility] Result panel 525 (unknown) (no date) (unknown) [facility] (no value) [facility] Result panel 526 (unknown) (no date) (unknown) [facility] (no value) [facility] Result panel 527 (unknown) (no date) (unknown) [facility] (no value) [facility] Result panel 528 (unknown) (no date) (unknown) [facility] (no value) [facility] Result panel 529 (unknown) (no date) (unknown) [facility] (no value) [facility] Result panel 530 (unknown) (no date) (unknown) [facility] (no value) [facility] Result panel 531 (unknown) (no date) (unknown) [facility] (no value) [facility] Result panel 532 (unknown) (no date) (unknown) [facility] (no value) [facility] Result panel 533 (unknown) (no date) (unknown) [facility] (no value) [facility] Result panel 534 (unknown) (no date) (unknown) [facility] (no value) [facility] Result panel 535 (unknown) (no date) (unknown) [facility] (no value) [facility] Result panel 536 (unknown) (no date) (unknown) [facility] (no value) [facility] Result panel 537 (unknown) (no date) (unknown) [facility] (no value) [facility] Result panel 538 (unknown) (no date) (unknown) [facility] (no value) [facility] Result panel 539 (unknown) (no date) (unknown) [facility] (no value) [facility] Result panel 540 (unknown) (no date) (unknown) [facility] (no value) [facility] Result panel 541 (unknown) (no date) (unknown) [facility] (no value) [facility] Result panel 542 (unknown) (no date) (unknown) [facility] (no value) [facility] Result panel 543 (unknown) (no date) (unknown) [facility] (no value) [facility] Result panel 544 (unknown) (no date) (unknown) [facility] (no value) [facility] Result panel 545 (unknown) (no date) (unknown) [facility] (no value) [facility] Result panel 546 (unknown) (no date) (unknown) [facility] (no value) [facility] Result panel 547 (unknown) (no date) (unknown) [facility] (no value) [facility] Result panel 548 (unknown) (no date) (unknown) [facility] (no value) [facility] Result panel 549 (unknown) (no date) (unknown) [facility] (no value) [facility] Result panel 550 (unknown) (no date) (unknown) [facility] (no value) [facility] Result panel 551 (unknown) (no date) (unknown) [facility] (no value) [facility] Result panel 552 (unknown) (no date) (unknown) [facility] (no value) [facility] Result panel 553 (unknown) (no date) (unknown) [facility] (no value) [facility] Result panel 554 (unknown) (no date) (unknown) [facility] (no value) [facility] Result panel 555 (unknown) (no date) (unknown) [facility] (no value) [facility] Result panel 556 (unknown) (no date) (unknown) [facility] (no value) [facility] Result panel 557 (unknown) (no date) (unknown) [facility] (no value) [facility] Result panel 558 (unknown) (no date) (unknown) [facility] (no value) [facility] Result panel 559 (unknown) (no date) (unknown) [facility] (no value) [facility] Result panel 560 (unknown) (no date) (unknown) [facility] (no value) [facility] Result panel 561 (unknown) (no date) (unknown) [facility] (no value) [facility] Result panel 562 (unknown) (no date) (unknown) [facility] (no value) [facility] Result panel 563 (unknown) (no date) (unknown) [facility] (no value) [facility] Result panel 564 (unknown) (no date) (unknown) [facility] (no value) [facility] Result panel 565 (unknown) (no date) (unknown) [facility] (no value) [facility] Result panel 566 (unknown) (no date) (unknown) [facility] (no value) [facility] Result panel 567 (unknown) (no date) (unknown) [facility] (no value) [facility] Result panel 568 (unknown) (no date) (unknown) [facility] (no value) [facility] Result panel 569 (unknown) (no date) (unknown) [facility] (no value) [facility] Result panel 570 (unknown) (no date) (unknown) [facility] (no value) [facility] Result panel 571 (unknown) (no date) (unknown) [facility] (no value) [facility] Result panel 572 (unknown) (no date) (unknown) [facility] (no value) [facility] Result panel 573 (unknown) (no date) (unknown) [facility] (no value) [facility] Result panel 574 (unknown) (no date) (unknown) [facility] (no value) [facility] Result panel 575 (unknown) (no date) (unknown) [facility] (no value) [facility] Result panel 576 (unknown) (no date) (unknown) [facility] (no value) [facility] Result panel 577 (unknown) (no date) (unknown) [facility] (no value) [facility] Result panel 578 (unknown) (no date) (unknown) [facility] (no value) [facility] Result panel 579 (unknown) (no date) (unknown) [facility] (no value) [facility] Result panel 580 (unknown) (no date) (unknown) [facility] (no value) [facility] Result panel 581 (unknown) (no date) (unknown) [facility] (no value) [facility] Result panel 582 (unknown) (no date) (unknown) [facility] (no value) [facility] Result panel 583 (unknown) (no date) (unknown) [facility] (no value) [facility] Result panel 584 (unknown) (no date) (unknown) [facility] (no value) [facility] Result panel 585 (unknown) (no date) (unknown) [facility] (no value) [facility] Result panel 586 (unknown) (no date) (unknown) [facility] (no value) [facility] Result panel 587 (unknown) (no date) (unknown) [facility] (no value) [facility] Result panel 588 (unknown) (no date) (unknown) [facility] (no value) [facility] Result panel 589 (unknown) (no date) (unknown) [facility] (no value) [facility] Result panel 590 (unknown) (no date) (unknown) [facility] (no value) [facility] Result panel 591 (unknown) (no date) (unknown) [facility] (no value) [facility] Result panel 592 (unknown) (no date) (unknown) [facility] (no value) [facility] Result panel 593 (unknown) (no date) (unknown) [facility] (no value) [facility] Result panel 594 (unknown) (no date) (unknown) [facility] (no value) [facility] Result panel 595 (unknown) (no date) (unknown) [facility] (no value) [facility] Result panel 596 (unknown) (no date) (unknown) [facility] (no value) [facility] Result panel 597 (unknown) (no date) (unknown) [facility] (no value) [facility] Result panel 598 (unknown) (no date) (unknown) [facility] (no value) [facility] Result panel 599 (unknown) (no date) (unknown) [facility] (no value) [facility] Result panel 600 (unknown) (no date) (unknown) [facility] (no value) [facility] Result panel 601 (unknown) (no date) (unknown) [facility] (no value) [facility] Result panel 602 (unknown) (no date) (unknown) [facility] (no value) [facility] Result panel 603 (unknown) (no date) (unknown) [facility] (no value) [facility] Result panel 604 (unknown) (no date) (unknown) [facility] (no value) [facility] Result panel 605 (unknown) (no date) (unknown) [facility] (no value) [facility] Result panel 606 (unknown) (no date) (unknown) [facility] (no value) [facility] Result panel 607 (unknown) (no date) (unknown) [facility] (no value) [facility] Result panel 608 (unknown) (no date) (unknown) [facility] (no value) [facility] Result panel 609 (unknown) (no date) (unknown) [facility] (no value) [facility] Result panel 610 (unknown) (no date) (unknown) [facility] (no value) [facility] Result panel 611 (unknown) (no date) (unknown) [facility] (no value) [facility] Result panel 612 (unknown) (no date) (unknown) [facility] (no value) [facility] Result panel 613 (unknown) (no date) (unknown) [facility] (no value) [facility] Result panel 614 (unknown) (no date) (unknown) [facility] (no value) [facility] Result panel 615 (unknown) (no date) (unknown) [facility] (no value) [facility] Result panel 616 (unknown) (no date) (unknown) [facility] (no value) [facility] Result panel 617 (unknown) (no date) (unknown) [facility] (no value) [facility] Result panel 618 (unknown) (no date) (unknown) [facility] (no value) [facility] Result panel 619 (unknown) (no date) (unknown) [facility] (no value) [facility] Result panel 620 (unknown) (no date) (unknown) [facility] (no value) [facility] Result panel 621 (unknown) (no date) (unknown) [facility] (no value) [facility] Result panel 622 (unknown) (no date) (unknown) [facility] (no value) [facility] Result panel 623 (unknown) (no date) (unknown) [facility] (no value) [facility] Result panel 624 (unknown) (no date) (unknown) [facility] (no value) [facility] Result panel 625 (unknown) (no date) (unknown) [facility] (no value) [facility] Result panel 626 (unknown) (no date) (unknown) [facility] (no value) [facility] Result panel 627 (unknown) (no date) (unknown) [facility] (no value) [facility] Result panel 628 (unknown) (no date) (unknown) [facility] (no value) [facility] Result panel 629 (unknown) (no date) (unknown) [facility] (no value) [facility] Result panel 630 (unknown) (no date) (unknown) [facility] (no value) [facility] Result panel 631 (unknown) (no date) (unknown) [facility] (no value) [facility] Result panel 632 (unknown) (no date) (unknown) [facility] (no value) [facility] Result panel 633 (unknown) (no date) (unknown) [facility] (no value) [facility] Result panel 634 (unknown) (no date) (unknown) [facility] (no value) [facility] Result panel 635 (unknown) (no date) (unknown) [facility] (no value) [facility] Result panel 636 (unknown) (no date) (unknown) [facility] (no value) [facility] Result panel 637 (unknown) (no date) (unknown) [facility] (no value) [facility] Result panel 638 (unknown) (no date) (unknown) [facility] (no value) [facility] Result panel 639 (unknown) (no date) (unknown) [facility] (no value) [facility] Result panel 640 (unknown) (no date) (unknown) [facility] (no value) [facility] Result panel 641 (unknown) (no date) (unknown) [facility] (no value) [facility] Result panel 642 (unknown) (no date) (unknown) [facility] (no value) [facility] Result panel 643 (unknown) (no date) (unknown) [facility] (no value) [facility] Result panel 644 (unknown) (no date) (unknown) [facility] (no value) [facility] Result panel 645 (unknown) (no date) (unknown) [facility] (no value) [facility] Result panel 646 (unknown) (no date) (unknown) [facility] (no value) [facility] Result panel 647 (unknown) (no date) (unknown) [facility] (no value) [facility] Result panel 648 (unknown) (no date) (unknown) [facility] (no value) [facility] Result panel 649 (unknown) (no date) (unknown) [facility] (no value) [facility] Result panel 650 (unknown) (no date) (unknown) [facility] (no value) [facility] Result panel 651 (unknown) (no date) (unknown) [facility] (no value) [facility] Result panel 652 (unknown) (no date) (unknown) [facility] (no value) [facility] Result panel 653 (unknown) (no date) (unknown) [facility] (no value) [facility] Result panel 654 (unknown) (no date) (unknown) [facility] (no value) [facility] Result panel 655 (unknown) (no date) (unknown) [facility] (no value) [facility] Result panel 656 (unknown) (no date) (unknown) [facility] (no value) [facility] Result panel 657 (unknown) (no date) (unknown) [facility] (no value) [facility] Result panel 658 (unknown) (no date) (unknown) [facility] (no value) [facility] Result panel 659 (unknown) (no date) (unknown) [facility] (no value) [facility] Result panel 660 (unknown) (no date) (unknown) [facility] (no value) [facility] Result panel 661 (unknown) (no date) (unknown) [facility] (no value) [facility] Result panel 662 (unknown) (no date) (unknown) [facility] (no value) [facility] Result panel 663 (unknown) (no date) (unknown) [facility] (no value) [facility] Result panel 664 (unknown) (no date) (unknown) [facility] (no value) [facility] Result panel 665 (unknown) (no date) (unknown) [facility] (no value) [facility] Result panel 666 (unknown) (no date) (unknown) [facility] (no value) [facility] Result panel 667 (unknown) (no date) (unknown) [facility] (no value) [facility] Result panel 668 (unknown) (no date) (unknown) [facility] (no value) [facility] Result panel 669 (unknown) (no date) (unknown) [facility] (no value) [facility] Result panel 670 (unknown) (no date) (unknown) [facility] (no value) [facility] Result panel 671 (unknown) (no date) (unknown) [facility] (no value) [facility] Result panel 672 (unknown) (no date) (unknown) [facility] (no value) [facility] Result panel 673 (unknown) (no date) (unknown) [facility] (no value) [facility] Result panel 674 (unknown) (no date) (unknown) [facility] (no value) [facility] Result panel 675 (unknown) (no date) (unknown) [facility] (no value) [facility] Result panel 676 (unknown) (no date) (unknown) [facility] (no value) [facility] Result panel 677 (unknown) (no date) (unknown) [facility] (no value) [facility] Result panel 678 (unknown) (no date) (unknown) [facility] (no value) [facility] Result panel 679 (unknown) (no date) (unknown) [facility] (no value) [facility] Result panel 680 (unknown) (no date) (unknown) [facility] (no value) [facility] Result panel 681 (unknown) (no date) (unknown) [facility] (no value) [facility] Result panel 682 (unknown) (no date) (unknown) [facility] (no value) [facility] Result panel 683 (unknown) (no date) (unknown) [facility] (no value) [facility] Result panel 684 (unknown) (no date) (unknown) [facility] (no value) [facility] Result panel 685 (unknown) (no date) (unknown) [facility] (no value) [facility] Result panel 686 (unknown) (no date) (unknown) [facility] (no value) [facility] Result panel 687 (unknown) (no date) (unknown) [facility] (no value[facility] Result panel 688 (unknown) (no date) (unknown) [facility] (no value) [facility] Result panel 689 (unknown) (no date) (unknown) [facility] (no value) [facility] Result panel 690 (unknown) (no date) (unknown) [facility] (no value) [facility] Result panel 691 (unknown) (no date) (unknown) [facility] (no value) [facility] Result panel 692 (unknown) (no date) (unknown) [facility] (no value) [facility] Result panel 693 (unknown) (no date) (unknown) [facility] (no value) [facility] Result panel 694 (unknown) (no date) (unknown) [facility] (no value) [facility] Result panel 695 (unknown) (no date) (unknown) [facility] (no value) [facility] Result panel 696 (unknown) (no date) (unknown) [facility] (no value) [facility] Result panel 697 (unknown) (no date) (unknown) [facility] (no value) [facility] Result panel 698 (unknown) (no date) (unknown) [facility] (no value) [facility] Result panel 699 (unknown) (no date) (unknown) [facility] (no value) [facility] Result panel 700 (unknown) (no date) (unknown) [facility] (no value) [facility] Result panel 701 (unknown) (no date) (unknown) [facility] (no value) [facility] Result panel 702 (unknown) (no date) (unknown) [facility] (no value) [facility] Result panel 703 (unknown) (no date) (unknown) [facility] (no value) [facility] Result panel 704 (unknown) (no date) (unknown) [facility] (no value) [facility] Result panel 705 (unknown) (no date) (unknown) [facility] (no value) [facility] Result panel 706 (unknown) (no date) (unknown) [facility] (no value) [facility] Result panel 707 (unknown) (no date) (unknown) Walk-[facility] (no value) [facility] Result panel 708 (unknown) (no date) (unknown) [facility] (no value) [facility] Result panel 709 (unknown) (no date) (unknown) [facility] (no value) [facility] Result panel 710 (unknown) (no date) (unknown) [facility] (no value) [facility] Result panel 711 (unknown) (no date) (unknown) [facility] (no value) [facility] Result panel 712 (unknown) (no date) (unknown) [facility] (no value) [facility] Result panel 713 (unknown) (no date) (unknown) [facility] (no value) [facility] Result panel 714 (unknown) (no date) (unknown) [facility] (no value) [facility] Result panel 715 (unknown) (no date) (unknown) [facility] (no value) [facility] Result panel 716 (unknown) (no date) (unknown) [facility] (no value) [facility] Result panel 717 (unknown) (no date) (unknown) [facility] (no value) [facility] Result panel 718 (unknown) (no date) (unknown) [facility] (no value) [facility] Result panel 719 (unknown) (no date) (unknown) [facility] (no value) [facility] Result panel 720 (unknown) (no date) (unknown) [facility] (no value) [facility] Result panel 721 (unknown) (no date) (unknown) [facility] (no value) [facility] Result panel 722 (unknown) (no date) (unknown) [facility] (no value) [facility] Result panel 723 (unknown) (no date) (unknown) [facility] (no value) [facility] Result panel 724 (unknown) (no date) (unknown) [facility] (no value) [facility] Result panel 725 (unknown) (no date) (unknown) [facility] (no value) [facility] Result panel 726 (unknown) (no date) (unknown) [facility] (no value) [facility] Result panel 727 (unknown) (no date) (unknown) [facility] (no value) [facility] Result panel 728 (unknown) (no date) (unknown) [facility] (no value) [facility] Result panel 729 (unknown) (no date) (unknown) [facility] (no value) [facility] Result panel 730 (unknown) (no date) (unknown) [facility] (no value) [facility] Result panel 731 (unknown) (no date) (unknown) [facility] (no value) [facility] Result panel 732 (unknown) (no date) (unknown) [facility] (no value) [facility] Result panel 733 (unknown) (no date) (unknown) [facility] (no value) [facility] Result panel 734 (unknown) (no date) (unknown) [facility] (no value) [facility] Result panel 735 (unknown) (no date) (unknown) [facility] (no value) [facility] Result panel 736 (unknown) (no date) (unknown) [facility] (no value) [facility] Result panel 737 (unknown) (no date) (unknown) [facility] (no value) [facility] Result panel 738 (unknown) (no date) (unknown) [facility] (no value) [facility] Result panel 739 (unknown) (no date) (unknown) [facility] (no value) [facility] Result panel 740 (unknown) (no date) (unknown) [facility] (no value) [facility] Result panel 741 (unknown) (no date) (unknown) [facility] (no value) [facility] Result panel 742 (unknown) (no date) (unknown) [facility] (no value) [facility] Result panel 743 (unknown) (no date) (unknown) [facility] (no value) [facility] Result panel 744 (unknown) (no date) (unknown) [facility] (no value) [facility] Result panel 745 (unknown) (no date) (unknown) [facility] (no value) [facility] Result panel 746 (unknown) (no date) (unknown) [facility] (no value) [facility] Result panel 747 (unknown) (no date) (unknown) [facility] (no value) [facility] Result panel 748 (unknown) (no date) (unknown) [facility] (no value) [facility] Result panel 749 (unknown) (no date) (unknown) [facility] (no value) [facility] Result panel 750 (unknown) (no date) (unknown) [facility] (no value) [facility] Result panel 751 (unknown) (no date) (unknown) [facility] (no value) [facility] Result panel 752 (unknown) (no date) (unknown) [facility] (no value) [facility] Result panel 753 (unknown) (no date) (unknown) [facility] (no value) [facility] Result panel 754 (unknown) (no date) (unknown) [facility] (no value) [facility] Result panel 755 (unknown) (no date) (unknown) [facility] (no value) [facility] Result panel 756 (unknown) (no date) (unknown) [facility] (no value) [facility] Result panel 757 (unknown) (no date) (unknown) [facility] (no value) [facility] Result panel 758 (unknown) (no date) (unknown) [facility] (no value) [facility] Result panel 759 (unknown) (no date) (unknown) [facility] (no value) [facility] Result panel 760 (unknown) (no date) (unknown) [facility] (no value) [facility] Result panel 761 (unknown) (no date) (unknown) [facility] (no value) [facility] Result panel 762 (unknown) (no date) (unknown) [facility] (no value) [facility] Result panel 763 (unknown) (no date) (unknown) [facility] (no value) [facility] Result panel 764 (unknown) (no date) (unknown) [facility] (no value) [facility] Result panel 765 (unknown) (no date) (unknown) [facility] (no value) [facility] Result panel 766 (unknown) (no date) (unknown) [facility] (no value) [facility] Result panel 767 (unknown) (no date) (unknown) [facility] (no value) [facility] Result panel 768 (unknown) (no date) (unknown) [facility] (no value) [facility] Result panel 769 (unknown) (no date) (unknown) [facility] (no value) [facility] Result panel 770 (unknown) (no date) (unknown) [facility] (no value) [facility] Result panel 771 (unknown) (no date) (unknown) [facility] (no value) [facility] Result panel 772 (unknown) (no date) (unknown) [facility] (no value) [facility] Result panel 773 (unknown) (no date) (unknown) [facility] (no value) [facility] Result panel 774 (unknown) (no date) (unknown) [facility] (no value) [facility] Result panel 775 (unknown) (no date) (unknown) [facility] (no value) [facility] Result panel 776 (unknown) (no date) (unknown) [facility] (no value) [facility] Result panel 777 (unknown) (no date) (unknown) [facility] (no value) [facility] Result panel 778 (unknown) (no date) (unknown) [facility] (no value) [facility] Result panel 779 (unknown) (no date) (unknown) [facility] (no value) [facility] Result panel 780 (unknown) (no date) (unknown) [facility] (no value) [facility] Result panel 781 (unknown) (no date) (unknown) [facility] (no value) [facility] Result panel 782 (unknown) (no date) (unknown) [facility] (no value) [facility] Result panel 783 (unknown) (no date) (unknown) [facility] (no value) [facility] Result panel 784 (unknown) (no date) (unknown) [facility] (no value) [facility] Result panel 785 (unknown) (no date) (unknown) [facility] (no value) [facility] Result panel 786 (unknown) (no date) (unknown) [facility] (no value) [facility] Result panel 787 (unknown) (no date) (unknown) [facility] (no value) [facility] Result panel 788 (unknown) (no date) (unknown) [facility] (no value) [facility] Result panel 789 (unknown) (no date) (unknown) [facility] (no value) [facility] Result panel 790 (unknown) (no date) (unknown) [facility] (no value) [facility] Result panel 791 (unknown) (no date) (unknown) [facility] (no value) [facility] Result panel 792 (unknown) (no date) (unknown) [facility] (no value) [facility] Result panel 793 (unknown) (no date) (unknown) [facility] (no value) [facility] Result panel 794 (unknown) (no date) (unknown) [facility] (no value) [facility] Result panel 795 (unknown) (no date) (unknown) [facility] (no value) [facility] Result panel 796 (unknown) (no date) (unknown) [facility] (no value) [facility] Result panel 797 (unknown) (no date) (unknown) [facility] (no value) [facility] Result panel 798 (unknown) (no date) (unknown) [facility] (no value) [facility] Result panel 799 (unknown) (no date) (unknown) [facility] (no value) [facility] Result panel 800 (unknown) (no date) (unknown) [facility] (no value) [facility] Result panel 801 (unknown) (no date) (unknown) [facility] (no value) [facility] Result panel 802 (unknown) (no date) (unknown) [facility] (no value) [facility] Result panel 803 (unknown) (no date) (unknown) [facility] (no value) [facility] Result panel 804 (unknown) (no date) (unknown) [facility] (no value) [facility] Result panel 805 (unknown) (no date) (unknown) [facility] (no value) [facility] Result panel 806 (unknown) (no date) (unknown) [facility] (no value) [facility] Result panel 807 (unknown) (no date) (unknown) [facility] (no value) [facility] Result panel 808 (unknown) (no date) (unknown) [facility] (no value) [facility] Result panel 809 (unknown) (no date) (unknown) [facility] (no value) [facility] Result panel 810 (unknown) (no date) (unknown) [facility] (no value) [facility] Result panel 811 (unknown) (no date) (unknown) [facility] (no value) [facility] Result panel 812 (unknown) (no date) (unknown) [facility] (no value) [facility] Result panel 813 (unknown) (no date) (unknown) [facility] (no value) [facility] Result panel 814 (unknown) (no date) (unknown) [facility] (no value) [facility] Result panel 815 (unknown) (no date) (unknown) [facility] (no value) [facility] Result panel 816 (unknown) (no date) (unknown) [facility] (no value) [facility] Result panel 817 (unknown) (no date) (unknown) [facility] (no value) [facility] Result panel 818 (unknown) (no date) (unknown) [facility] (no value) [facility] Result panel 819 (unknown) (no date) (unknown) [facility] (no value) [facility] Result panel 820 (unknown) (no date) (unknown) [facility] (no value) [facility] Result panel 821 (unknown) (no date) (unknown) [facility] (no value) [facility] Result panel 822 (unknown) (no date) (unknown) [facility] (no value) [facility] Result panel 823 (unknown) (no date) (unknown) [facility] (no value) [facility] Result panel 824 (unknown) (no date) (unknown) [facility] (no value) [facility] Result panel 825 (unknown) (no date) (unknown) [facility] (no value) [facility] Result panel 826 (unknown) (no date) (unknown) [facility] (no value) [facility] Result panel 827 (unknown) (no date) (unknown) [facility] (no value) [facility] Result panel 828 (unknown) (no date) (unknown) [facility] (no value) [facility] Result panel 829 (unknown) (no date) (unknown) [facility] (no value) [facility] Result panel 830 (unknown) (no date) (unknown) [facility] (no value) [facility] Result panel 831 (unknown) (no date) (unknown) [facility] (no value) [facility] Result panel 832 (unknown) (no date) (unknown) [facility] (no value) [facility] Result panel 833 (unknown) (no date) (unknown) [facility] (no value) [facility] Result panel 834 (unknown) (no date) (unknown) [facility] (no value) [facility] Result panel 835 (unknown) (no date) (unknown) [facility] (no value) [facility] Result panel 836 (unknown) (no date) (unknown) [facility] (no value) [facility] Result panel 837 (unknown) (no date) (unknown) [facility] (no value) [facility] Result panel 838 (unknown) (no date) (unknown) [facility] (no value) [facility] Result panel 839 (unknown) (no date) (unknown) [facility] (no value) [facility] Result panel 840 (unknown) (no date) (unknown) [facility] (no value) [facility] Result panel 841 (unknown) (no date) (unknown) [facility] (no value) [facility] Result panel 842 (unknown) (no date) (unknown) [facility] (no value) [facility] Result panel 843 (unknown) (no date) (unknown) [facility] (no value) [facility] Result panel 844 (unknown) (no date) (unknown) [facility] (no value) [facility] Result panel 845 (unknown) (no date) (unknown) [facility] (no value) [facility] Result panel 846 (unknown) (no date) (unknown) [facility] (no value) [facility] Result panel 847 (unknown) (no date) (unknown) [facility] (no value) [facility] Result panel 848 (unknown) (no date) (unknown) [facility] (no value) [facility] Result panel 849 (unknown) (no date) (unknown) [facility] (no value) [facility] Result panel 850 (unknown) (no date) (unknown) [facility] (no value) [facility] Result panel 851 (unknown) (no date) (unknown) [facility] (no value) [facility] Result panel 852 (unknown) (no date) (unknown) [facility] (no value) [facility] Result panel 853 (unknown) (no date) (unknown) [facility] (no value) [facility] Result panel 854 (unknown) (no date) (unknown) [facility] (no value) [facility] Result panel 855 (unknown) (no date) (unknown) [facility] (no value) [facility] Result panel 856 (unknown) (no date) (unknown) [facility] (no value) [facility] Result panel 857 (unknown) (no date) (unknown) [facility] (no value) [facility] Result panel 858 (unknown) (no date) (unknown) [facility] (no value) [facility] Result panel 859 (unknown) (no date) (unknown) [facility] (no value) [facility] Result panel 860 (unknown) (no date) (unknown) [facility] (no value) [facility] Result panel 861 (unknown) (no date) (unknown) [facility] (no value) [facility] Result panel 862 (unknown) (no date) (unknown) [facility] (no value) [facility] Result panel 863 (unknown) (no date) (unknown) [facility] (no value) [facility] Result panel 864 (unknown) (no date) (unknown) [facility] (no value) [facility] Result panel 865 (unknown) (no date) (unknown) [facility] (no value) [facility] Result panel 866 (unknown) (no date) (unknown) [facility] (no value) [facility] Result panel 867 (unknown) (no date) (unknown) [facility] (no value) [facility] Result panel 868 (unknown) (no date) (unknown) [facility] (no value) [facility] Result panel 869 (unknown) (no date) (unknown) [facility] (no value) [facility] Result panel 870 (unknown) (no date) (unknown) [facility] (no value) [facility] Result panel 871 (unknown) (no date) (unknown) [facility] (no value) [facility] Result panel 872 (unknown) (no date) (unknown) [facility] (no value) [facility] Result panel 873 (unknown) (no date) (unknown) [facility] (no value) [facility] Result panel 874 (unknown) (no date) (unknown) [facility] (no value) [facility] Result panel 875 (unknown) (no date) (unknown) [facility] (no value) [facility] Result panel 876 (unknown) (no date) (unknown) [facility] (no value) [facility] Result panel 877 (unknown) (no date) (unknown) [facility] (no value) [facility] Result panel 878 (unknown) (no date) (unknown) [facility] (no value) [facility] Result panel 879 (unknown) (no date) (unknown) [facility] (no value) [facility] Result panel 880 (unknown) (no date) (unknown) [facility] (no value) [facility] Result panel 881 (unknown) (no date) (unknown) [facility] (no value) [facility] Result panel 882 (unknown) (no date) (unknown) [facility] (no value) [facility] Result panel 883 (unknown) (no date) (unknown) [facility] (no value) [facility] Result panel 884 (unknown) (no date) (unknown) [facility] (no value) [facility] Result panel 885 (unknown) (no date) (unknown) [facility] (no value) [facility] Result panel 886 (unknown) (no date) (unknown) [facility] (no value) [facility] Result panel 887 (unknown) (no date) (unknown) [facility] (no value) [facility] Result panel 888 (unknown) (no date) (unknown) [facility] (no value) [facility] Result panel 889 (unknown) (no date) (unknown) [facility] (no value) [facility] Result panel 890 (unknown) (no date) (unknown) [facility] (no value) [facility] Result panel 891 (unknown) (no date) (unknown) [facility] (no value) [facility] Result panel 892 (unknown) (no date) (unknown) [facility] (no value) [facility] Result panel 893 (unknown) (no date) (unknown) [facility] (no value) [facility] Result panel 894 (unknown) (no date) (unknown) [facility] (no value) [facility] Result panel 895 (unknown) (no date) (unknown) [facility] (no value) [facility] Result panel 896 (unknown) (no date) (unknown) [facility] (no value) [facility] Result panel 897 (unknown) (no date) (unknown) [facility] (no value) [facility] Result panel 898 (unknown) (no date) (unknown) [facility] (no value) [facility] Result panel 899 (unknown) (no date) (unknown) [facility] (no value) [facility] Result panel 900 (unknown) (no date) (unknown) [facility] (no value) [facility] Result panel 901 (unknown) (no date) (unknown) [facility] (no value) [facility] Result panel 902 (unknown) (no date) (unknown) [facility] (no value) [facility] Result panel 903 (unknown) (no date) (unknown) [facility] (no value) [facility] Result panel 904 (unknown) (no date) (unknown) [facility] (no value) [facility] Result panel 905 (unknown) (no date) (unknown) [facility] (no value) [facility] Result panel 906 (unknown) (no date) (unknown) [facility] (no value) [facility] Result panel 907 (unknown) (no date) (unknown) [facility] (no value) [facility] Result panel 908 (unknown) (no date) (unknown) [facility] (no value) [facility] Result panel 909 (unknown) (no date) (unknown) [facility] (no value) [facility] Result panel 910 (unknown) (no date) (unknown) [facility] (no value) [facility] Result panel 911 (unknown) (no date) (unknown) [facility] (no value) [facility] Result panel 912 (unknown) (no date) (unknown) [facility] (no value) [facility] Result panel 913 (unknown) (no date) (unknown) [facility] (no value) [facility] Result panel 914 (unknown) (no date) (unknown) [facility] (no value) [facility] Result panel 915 (unknown) (no date) (unknown) [facility] (no value) [facility] Result panel 916 (unknown) (no date) (unknown) [facility] (no value) [facility] Result panel 917 (unknown) (no date) (unknown) [facility] (no value) [facility] Result panel 918 (unknown) (no date) (unknown) [facility] (no value) [facility] Result panel 919 (unknown) (no date) (unknown) [facility] (no value) [facility] Result panel 920 (unknown) (no date) (unknown) [facility] (no value) [facility] Result panel 921 (unknown) (no date) (unknown) [facility] (no value) [facility] Result panel 922 (unknown) (no date) (unknown) [facility] (no value) [facility] Result panel 923 (unknown) (no date) (unknown) [facility] (no value) [facility] Result panel 924 (unknown) (no date) (unknown) [facility] (no value) [facility] Result panel 925 (unknown) (no date) (unknown) [facility] (no value) [facility] Result panel 926 (unknown) (no date) (unknown) [facility] (no value) [facility] Result panel 927 (unknown) (no date) (unknown) [facility] (no value) [facility] Result panel 928 (unknown) (no date) (unknown) [facility] (no value) [facility] Result panel 929 (unknown) (no date) (unknown) [facility] (no value) [facility] Result panel 930 (unknown) (no date) (unknown) [facility] (no value) [facility] Result panel 931 (unknown) (no date) (unknown) [facility] (no value) [facility] Result panel 932 (unknown) (no date) (unknown) [facility] (no value) [facility] Result panel 933 (unknown) (no date) (unknown) [facility] (no value) [facility] Result panel 934 (unknown) (no date) (unknown) [facility] (no value) [facility] Result panel 935 (unknown) (no date) (unknown) [facility] (no value) [facility] Result panel 936 (unknown) (no date) (unknown) [facility] (no value) [facility] Result panel 937 (unknown) (no date) (unknown) [facility] (no value) [facility] Result panel 938 (unknown) (no date) (unknown) [facility] (no value) [facility] Result panel 939 (unknown) (no date) (unknown) [facility] (no value) [facility] Result panel 940 (unknown) (no date) (unknown) [facility] (no value) [facility] Result panel 941 (unknown) (no date) (unknown) [facility] (no value) [facility] Result panel 942 (unknown) (no date) (unknown) [facility] (no value) [facility] Result panel 943 (unknown) (no date) (unknown) [facility] (no value) [facility] Result panel 944 (unknown) (no date) (unknown) [facility] (no value) [facility] Result panel 945 (unknown) (no date) (unknown) [facility] (no value) [facility] Result panel 946 (unknown) (no date) (unknown) [facility] (no value) [facility] Result panel 947 (unknown) (no date) (unknown) [facility] (no value) [facility] Result panel 948 (unknown) (no date) (unknown) [facility] (no value) [facility] Result panel 949 (unknown) (no date) (unknown) [facility] (no value) [facility] Result panel 950 (unknown) (no date) (unknown) [facility] (no value) [facility] Result panel 951 (unknown) (no date) (unknown) [facility] (no value) [facility] Result panel 952 (unknown) (no date) (unknown) [facility] (no value) [facility] Result panel 953 (unknown) (no date) (unknown) [facility] (no value) [facility] Result panel 954 (unknown) (no date) (unknown) [facility] (no value) [facility] Result panel 955 (unknown) (no date) (unknown) [facility] (no value) [facility] Result panel 956 (unknown) (no date) (unknown) [facility] (no value) [facility] Result panel 957 (unknown) (no date) (unknown) [facility] (no value) [facility] Result panel 958 (unknown) (no date) (unknown) [facility] (no value) [facility] Result panel 959 (unknown) (no date) (unknown) [facility] (no value) [facility] Result panel 960 (unknown) (no date) (unknown) [facility] (no value) [facility] Result panel 961 (unknown) (no date) (unknown) [facility] (no value) [facility] Result panel 962 (unknown) (no date) (unknown) [facility] (no value) [facility] Result panel 963 (unknown) (no date) (unknown) [facility] (no value) [facility] Result panel 964 (unknown) (no date) (unknown) [facility] (no value) [facility] Result panel 965 (unknown) (no date) (unknown) [facility] (no value) [facility] Result panel 966 (unknown) (no date) (unknown) [facility] (no value) [facility] Result panel 967 (unknown) (no date) (unknown) [facility] (no value) [facility] Result panel 968 (unknown) (no date) (unknown) [facility] (no value) [facility] Result panel 969 (unknown) (no date) (unknown) [facility] (no value) [facility] Result panel 970 (unknown) (no date) (unknown) [facility] (no value) [facility] Result panel 971 (unknown) (no date) (unknown) [facility] (no value) [facility] Result panel 972 (unknown) (no date) (unknown) [facility] (no value) [facility] Result panel 973 (unknown) (no date) (unknown) [facility] (no value) [facility] Result panel 974 (unknown) (no date) (unknown) [facility] (no value) [facility] Result panel 975 (unknown) (no date) (unknown) [facility] (no value) [facility] Result panel 976 (unknown) (no date) (unknown) [facility] (no value) [facility] Result panel 977 (unknown) (no date) (unknown) [facility] (no value) [facility] Result panel 978 (unknown) (no date) (unknown) [facility] (no value) [facility] Result panel 979 (unknown) (no date) (unknown) [facility] (no value) [facility] Result panel 980 (unknown) (no date) (unknown) [facility] (no value) [facility] Result panel 981 (unknown) (no date) (unknown) [facility] (no value) [facility] Result panel 982 (unknown) (no date) (unknown) [facility] (no value) [facility] Result panel 983 (unknown) (no date) (unknown) [facility] (no value) [facility] Result panel 984 (unknown) (no date) (unknown) [facility] (no value) [facility] Result panel 985 (unknown) (no date) (unknown) [facility] (no value) [facility] Result panel 986 (unknown) (no date) (unknown) [facility] (no value) [facility] Result panel 987 (unknown) (no date) (unknown) [facility] (no value) [facility] Result panel 988 (unknown) (no date) (unknown) [facility] (no value) [facility] Result panel 989 (unknown) (no date) (unknown) [facility] (no value) [facility] Result panel 990 (unknown) (no date) (unknown) [facility] (no value) [facility] Result panel 991 (unknown) (no date) (unknown) [facility] (no value) [facility] Result panel 992 (unknown) (no date) (unknown) [facility] (no value) [facility] Result panel 993 (unknown) (no date) (unknown) [facility] (no value) [facility] Result panel 994 (unknown) (no date) (unknown) [facility] (no value) [facility] Result panel 995 (unknown) (no date) (unknown) [facility] (no value) [facility] Result panel 996 (unknown) (no date) (unknown) [facility] (no value) [facility] Result panel 997 (unknown) (no date) (unknown) [facility] (no value) [facility] Result panel 998 (unknown) (no date) (unknown) [facility] (no value) [facility] Result panel 999 (unknown) (no date) (unknown) [facility] (no value) [facility] Result panel 1000 (unknown) (no date) (unknown) [facility] (no value) [facility] Result panel 1001 (unknown) (no date) (unknown) [facility] (no value) [facility] Result panel 1002 (unknown) (no date) (unknown) [facility] (no value) [facility] Result panel 1003 (unknown) (no date) (unknown) [facility] (no value) [facility] Result panel 1004 (unknown) (no date) (unknown) [facility] (no value) [facility] Result panel 1005 (unknown) (no date) (unknown) [facility] (no value) [facility] Result panel 1006 (unknown) (no date) (unknown) [facility] (no value) [facility] Result panel 1007 (unknown) (no date) (unknown) [facility] (no value) [facility] Result panel 1008 (unknown) (no date) (unknown) [facility] (no value) [facility] Result panel 1009 (unknown) (no date) (unknown) [facility] (no value) [facility] Result panel 1010 (unknown) (no date) (unknown) [facility] (no value) [facility] Result panel 1011 (unknown) (no date) (unknown) [facility] (no value) [facility] Result panel 1012 (unknown) (no date) (unknown) [facility] (no value) [facility] Result panel 1013 (unknown) (no date) (unknown) [facility] (no value) [facility] Result panel 1014 (unknown) (no date) (unknown) [facility] (no value) [facility] Result panel 1015 (unknown) (no date) (unknown) [facility] (no value) [facility] Result panel 1016 (unknown) (no date) (unknown) [facility] (no value) [facility] Result panel 1017 (unknown) (no date) (unknown) [facility] (no value) [facility] Result panel 1018 (unknown) (no date) (unknown) [facility] (no value) [facility] Result panel 1019 (unknown) (no date) (unknown) [facility] (no value) [facility] Result panel 1020 (unknown) (no date) (unknown) [facility] (no value) [facility] Result panel 1021 (unknown) (no date) (unknown) [facility] (no value) [facility] Result panel 1022 (unknown) (no date) (unknown) [facility] (no value) [facility] Result panel 1023 (unknown) (no date) (unknown) [facility] (no value) [facility] Result panel 1024 (unknown) (no date) (unknown) [facility] (no value) [facility] Result panel 1025 (unknown) (no date) (unknown) [facility] (no value) [facility] Result panel 1026 (unknown) (no date) (unknown) [facility] (no value) [facility] Result panel 1027 (unknown) (no date) (unknown) [facility] (no value) [facility] Result panel 1028 (unknown) (no date) (unknown) [facility] (no value) [facility] Result panel 1029 (unknown) (no date) (unknown) [facility] (no value) [facility] Result panel 1030 (unknown) (no date) (unknown) [facility] (no value) [facility] Result panel 1031 (unknown) (no date) (unknown) [facility] (no value) [facility] Result panel 1032 (unknown) (no date) (unknown) [facility] (no value) [facility] Result panel 1033 (unknown) (no date) (unknown) [facility] (no value) [facility] Result panel 1034 (unknown) (no date) (unknown) [facility] (no value) [facility] Result panel 1035 (unknown) (no date) (unknown) [facility] (no value) [facility] Result panel 1036 (unknown) (no date) (unknown) [facility] (no value) [facility] Result panel 1037 (unknown) (no date) (unknown) [facility] (no value) [facility] Result panel 1038 (unknown) (no date) (unknown) [facility] (no value) [facility] Result panel 1039 (unknown) (no date) (unknown) [facility] (no value) [facility] Result panel 1040 (unknown) (no date) (unknown) [facility] (no value) [facility] Result panel 1041 (unknown) (no date) (unknown) [facility] (no value) [facility] Result panel 1042 (unknown) (no date) (unknown) [facility] (no value) [facility] Result panel 1043 (unknown) (no date) (unknown) [facility] (no value) [facility] Result panel 1044 (unknown) (no date) (unknown) [facility] (no value) [facility] Result panel 1045 (unknown) (no date) (unknown) [facility] (no value) [facility] Result panel 1046 (unknown) (no date) (unknown) [facility] (no value) [facility] Result panel 1047 (unknown) (no date) (unknown) [facility] (no value) [facility] Result panel 1048 (unknown) (no date) (unknown) [facility] (no value) [facility] Result panel 1049 (unknown) (no date) (unknown) [facility] (no value) [facility] Result panel 1050 (unknown) (no date) (unknown) [facility] (no value) [facility] Result panel 1051 (unknown) (no date) (unknown) [facility] (no value) [facility] Result panel 1052 (unknown) (no date) (unknown) [facility] (no value) [facility] Result panel 1053 (unknown) (no date) (unknown) [facility] (no value) [facility] Result panel 1054 (unknown) (no date) (unknown) [facility] (no value) [facility] Result panel 1055 (unknown) (no date) (unknown) [facility] (no value) [facility] Result panel 1056 (unknown) (no date) (unknown) [facility] (no value) [facility] Result panel 1057 (unknown) (no date) (unknown) [facility] (no value) [facility] Result panel 1058 (unknown) (no date) (unknown) [facility] (no value) [facility] Result panel 1059 (unknown) (no date) (unknown) [facility] (no value) [facility] Result panel 1060 (unknown) (no date) (unknown) [facility] (no value) [facility] Result panel 1061 (unknown) (no date) (unknown) [facility] (no value) [facility] Result panel 1062 (unknown) (no date) (unknown) [facility] (no value) [facility] Result panel 1063 (unknown) (no date) (unknown) [facility] (no value) [facility] Result panel 1064 (unknown) (no date) (unknown) [facility] (no value) [facility] Result panel 1065 (unknown) (no date) (unknown) [facility] (no value) [facility] Result panel 1066 (unknown) (no date) (unknown) [facility] (no value) [facility] Result panel 1067 (unknown) (no date) (unknown) [facility] (no value) [facility] Result panel 1068 (unknown) (no date) (unknown) [facility] (no value) [facility] Result panel 1069 (unknown) (no date) (unknown) [facility] (no value) [facility] Result panel 1070 (unknown) (no date) (unknown) [facility] (no value) [facility] Result panel 1071 (unknown) (no date) (unknown) [facility] (no value) [facility] Result panel 1072 (unknown) (no date) (unknown) [facility] (no value) [facility] Result panel 1073 (unknown) (no date) (unknown) [facility] (no value) [facility] Result panel 1074 (unknown) (no date) (unknown) [facility] (no value) [facility] Result panel 1075 (unknown) (no date) (unknown) [facility] (no value) [facility] Result panel 1076 (unknown) (no date) (unknown) [facility] (no value) [facility] Result panel 1077 (unknown) (no date) (unknown) [facility] (no value) [facility] Result panel 1078 (unknown) (no date) (unknown) [facility] (no value) [facility] Result panel 1079 (unknown) (no date) (unknown) [facility] (no value) [facility] Result panel 1080 (unknown) (no date) (unknown) [facility] (no value) [facility] Result panel 1081 (unknown) (no date) (unknown) [facility] (no value) [facility] Result panel 1082 (unknown) (no date) (unknown) [facility] (no value) [facility] Result panel 1083 (unknown) (no date) (unknown) [facility] (no value) [facility] Result panel 1084 (unknown) (no date) (unknown) [facility] (no value) [facility] Result panel 1085 (unknown) (no date) (unknown) [facility] (no value) [facility] Result panel 1086 (unknown) (no date) (unknown) [facility] (no value) [facility] Result panel 1087 (unknown) (no date) (unknown) [facility] (no value) [facility] Result panel 1088 (unknown) (no date) (unknown) [facility] (no value) [facility] Result panel 1089 (unknown) (no date) (unknown) [facility] (no value) [facility] Result panel 1090 (unknown) (no date) (unknown) [facility] (no value) [facility] Result panel 1091 (unknown) (no date) (unknown) [facility] (no value) [facility] Result panel 1092 (unknown) (no date) (unknown) [facility] (no value) [facility] Result panel 1093 (unknown) (no date) (unknown) [facility] (no value) [facility] Result panel 1094 (unknown) (no date) (unknown) [facility]no value[facility] Result panel 1095 (unknown) (no date) (unknown) [facility] (no value) [facility] Result panel 1096 (unknown) (no date) (unknown) [facility] (no value) [facility] Result panel 1097 (unknown) (no date) (unknown) [facility] (no value) [facility] Result panel 1098 (unknown) (no date) (unknown) [facility] (no value) [facility] Result panel 1099 (unknown) (no date) (unknown) [facility] (no value) [facility] Result panel 1100 (unknown) (no date) (unknown) [facility] (no value) [facility] Result panel 1101 (unknown) (no date) (unknown) [facility] (no value) [facility] Result panel 1102 (unknown) (no date) (unknown) [facility] (no value) [facility] Result panel 1103 (unknown) (no date) (unknown) [facility] (no value) [facility] Result panel 1104 (unknown) (no date) (unknown) [facility] (no value) [facility] Result panel 1105 (unknown) (no date) (unknown) [facility] (no value) [facility] Result panel 1106 (unknown) (no date) (unknown) [facility] (no value) [facility] Result panel 1107 (unknown) (no date) (unknown) [facility] (no value) [facility] Result panel 1108 (unknown) (no date) (unknown) [facility] (no value) [facility] Result panel 1109 (unknown) (no date) (unknown) [facility] (no value) [facility] Result panel 1110 (unknown) (no date) (unknown) [facility] (no value) [facility] Result panel 1111 (unknown) (no date) (unknown) [facility] (no value) [facility] Result panel 1112 (unknown) (no date) (unknown) [facility] (no value) [facility] Result panel 1113 (unknown) (no date) (unknown) [facility] (no value) [facility] Result panel 1114 (unknown) (no date) (unknown) [facility] (no value) [facility] Result panel 1115 (unknown) (no date) (unknown) [facility] (no value) [facility] Result panel 1116 (unknown) (no date) (unknown) [facility] (no value) [facility] Result panel 1117 (unknown) (no date) (unknown) [facility] (no value) [facility] Result panel 1118 (unknown) (no date) (unknown) [facility] (no value) [facility] Result panel 1119 (unknown) (no date) (unknown) [facility] (no value) [facility] Result panel 1120 (unknown) (no date) (unknown) [facility] (no value) [facility] Result panel 1121 (unknown) (no date) (unknown) [facility] (no value) [facility] Result panel 1122 (unknown) (no date) (unknown) [facility] (no value) [facility] Result panel 1123 (unknown) (no date) (unknown) [facility] (no value) [facility] Result panel 1124 (unknown) (no date) (unknown) [facility] (no value) [facility] Result panel 1125 (unknown) (no date) (unknown) [facility] (no value) [facility] Result panel 1126 (unknown) (no date) (unknown) [facility] (no value) [facility] Result panel 1127 (unknown) (no date) (unknown) [facility] (no value) [facility] Result panel 1128 (unknown) (no date) (unknown) [facility] (no value) [facility] Result panel 1129 (unknown) (no date) (unknown) [facility] (no value) [facility] Result panel 1130 (unknown) (no date) (unknown) [facility] (no value) [facility] Result panel 1131 (unknown) (no date) (unknown) [facility] (no value) [facility] Result panel 1132 (unknown) (no date) (unknown) [facility] (no value) [facility] Result panel 1133 (unknown) (no date) (unknown) [facility] (no value) [facility] Result panel 1134 (unknown) (no date) (unknown) [facility] (no value) [facility] Result panel 1135 (unknown) (no date) (unknown) [facility] (no value) [facility] Result panel 1136 (unknown) (no date) (unknown) [facility] (no value) [facility] Result panel 1137 (unknown) (no date) (unknown) [facility] (no value) [facility] Result panel 1138 (unknown) (no date) (unknown) [facility] (no value) [facility] Result panel 1139 (unknown) (no date) (unknown) [facility] (no value) [facility] Result panel 1140 (unknown) (no date) (unknown) [facility] (no value) [facility] Result panel 1141 (unknown) (no date) (unknown) [facility] (no value) [facility] Result panel 1142 (unknown) (no date) (unknown) [facility] (no value) [facility] Result panel 1143 (unknown) (no date) (unknown) [facility] (no value) [facility] Result panel 1144 (unknown) (no date) (unknown) [facility] (no value) [facility] Result panel 1145 (unknown) (no date) (unknown) [facility] (no value) [facility] Result panel 1146 (unknown) (no date) (unknown) [facility] (no value) [facility] Result panel 1147 (unknown) (no date) (unknown) [facility] (no value) [facility] Result panel 1148 (unknown) (no date) (unknown) [facility] (no value) [facility] Result panel 1149 (unknown) (no date) (unknown) [facility] (no value) [facility] Result panel 1150 (unknown) (no date) (unknown) [facility] (no value) [facility] Result panel 1151 (unknown) (no date) (unknown) [facility] (no value) [facility] Result panel 1152 (unknown) (no date) (unknown) [facility] (no value) [facility] Result panel 1153 (unknown) (no date) (unknown) [facility] (no value) [facility] Result panel 1154 (unknown) (no date) (unknown) [facility] (no value) [facility] Result panel 1155 (unknown) (no date) (unknown) [facility] (no value) [facility] Result panel 1156 (unknown) (no date) (unknown) [facility] (no value) [facility] Result panel 1157 (unknown) (no date) (unknown) [facility] (no value) [facility] Result panel 1158 (unknown) (no date) (unknown) [facility] (no value) [facility] Result panel 1159 (unknown) (no date) (unknown) [facility] (no value) [facility] Result panel 1160 (unknown) (no date) (unknown) [facility] (no value) [facility] Result panel 1161 (unknown) (no date) (unknown) [facility] (no value) [facility] Result panel 1162 (unknown) (no date) (unknown) [facility] (no value) [facility] Result panel 1163 (unknown) (no date) (unknown) [facility] (no value) [facility] Result panel 1164 (unknown) (no date) (unknown) [facility] (no value) [facility] Result panel 1165 (unknown) (no date) (unknown) [facility] (no value) [facility] Result panel 1166 (unknown) (no date) (unknown) [facility] (no value) [facility] Result panel 1167 (unknown) (no date) (unknown) [facility] (no value) [facility] Result panel 1168 (unknown) (no date) (unknown) [facility] (no value) [facility] Result panel 1169 (unknown) (no date) (unknown) [facility] (no value) [facility] Result panel 1170 (unknown) (no date) (unknown) [facility] (no value) [facility] Result panel 1171 (unknown) (no date) (unknown) [facility] (no value) [facility] Result panel 1172 (unknown) (no date) (unknown) [facility] (no value) [facility] Result panel 1173 (unknown) (no date) (unknown) [facility] (no value) [facility] Result panel 1174 (unknown) (no date) (unknown) [facility] (no value) [facility] Result panel 1175 (unknown) (no date) (unknown) [facility] (no value) [facility] Result panel 1176 (unknown) (no date) (unknown) [facility] (no value) [facility] Result panel 1177 (unknown) (no date) (unknown) [facility] (no value) [facility] Result panel 1178 (unknown) (no date) (unknown) [facility] (no value) [facility] Result panel 1179 (unknown) (no date) (unknown) [facility] (no value) [facility] Result panel 1180 (unknown) (no date) (unknown) [facility] (no value) [facility] Result panel 1181 (unknown) (no date) (unknown) [facility] (no value) [facility] Result panel 1182 (unknown) (no date) (unknown) [facility] (no value) [facility] Result panel 1183 (unknown) (no date) (unknown) [facility] (no value) [facility] Result panel 1184 (unknown) (no date) (unknown) [facility] (no value) [facility] Result panel 1185 (unknown) (no date) (unknown) [facility] (no value) [facility] Result panel 1186 (unknown) (no date) (unknown) [facility] (no value) [facility] Result panel 1187 (unknown) (no date) (unknown) [facility] (no value) [facility] Result panel 1188 (unknown) (no date) (unknown) [facility] (no value) [facility] Result panel 1189 (unknown) (no date) (unknown) [facility] (no value) [facility] Result panel 1190 (unknown) (no date) (unknown) [facility] (no value) [facility] Result panel 1191 (unknown) (no date) (unknown) [facility] (no value) [facility] Result panel 1192 (unknown) (no date) (unknown) [facility] (no value) [facility] Result panel 1193 (unknown) (no date) (unknown) [facility] (no value) [facility] Result panel 1194 (unknown) (no date) (unknown) [facility] (no value) [facility] Result panel 1195 (unknown) (no date) (unknown) [facility] (no value) [facility] Result panel 1196 (unknown) (no date) (unknown) Walk-In (no value) (units ([facility] nown) Clinic Primary unknown) [facility] Result panel 1197 (unknown) (no date) (unknown) Walk-In (no value) (units ([facility] nown) Clinic Primary unknown) [facility] Result panel 1198 (unknown) (no date) (unknown) Walk-In (no value) (units ([facility] nown) Clinic Primary unknown) [facility] Result panel 1199 (unknown) (no date) (unknown) Walk-In (no value) (units ([facility] nown) Clinic Primary unknown) [facility] Result panel 1200 (unknown) (no date) (unknown) Walk-In (no value) (units ([facility] nown) Clinic Primary unknown) [facility] Result panel 1201 (unknown) (no date) (unknown) Walk-In (no value) (units ([facility] nown) Clinic Primary unknown) [facility] Result panel 1202 (unknown) (no date) (unknown) Walk-In (no value) (units ([facility] nown) Clinic Primary unknown) [facility] Result panel 1203 (unknown) (no date) (unknown) Walk-In (no value) (units ([facility] nown) Clinic Primary unknown) [facility] Result panel 1204 (unknown) (no date) (unknown) Walk-In (no value) (units ([facility] nown) Clinic Primary unknown) [facility] Result panel 1205 (unknown) (no date) (unknown) Walk-In (no value) (units ([facility] nown) Clinic Primary unknown) [facility] Result panel 1206 (unknown) (no date) (unknown) Walk-In (no value) (units (unk nown) Clinic Primary unknown) [facility] Social History No information. Vital Signs No information.
--- NOTE | 2022-06-03 15:27 | ED Physician Documentation ---
PD HPI URI - Stated complaint Stated Complaint: FEVER - History obtained from History obtained from: Patient, Family (daughter - who gives supplemental information about the patient's recent symptoms.) - History of Present Illness Timing - onset: Today Timing details: Abrupt onset (The patient has had general weakness and malaise status postchemotherapy 5 days ago. However the fever was abruptly today and a feeling of general weakness.), Still present, Still present in ED Associated symptoms: Fever, Sinus pain, NVD (No nausea or vomiting but has had decreased appetite. She has had loose stool/diarrhea which is not particularly malodorous for the last 2 to 3 weeks.). No: Sore throat, Productive cough, Chest pain Contributing factors: Immunocompromised. No: Sick contact, Travel, Unimmunized Similar symptoms before: Has not had sx before Recently seen: Clinic (MAC with chemo 5 days ago and Granix daily the past 5 days.) Review of Systems Constitutional: reports: Fever Nose: reports: Sinus pressure / pain. denies: Rhinorrhea / runny nose, Congestion Throat: denies: Sore throat Cardiac: denies: Chest pain / pressure Respiratory: denies: Dyspnea, Cough GI: reports: Nausea, Diarrhea. denies: Abdominal Pain, Vomiting, Constipation, Bloody / black stool : denies: Dysuria, Frequency Skin: denies: Rash, Lesions Neurologic: reports: Generalized weakness. denies: Focal weakness, Near syncope, Altered mental status, Headache PD PAST MEDICAL HISTORY - Past Medical History Cardiovascular: Hypertension, High cholesterol, Arrhythmia (history of A fib) Respiratory: Sleep apnea, CPAP use Endocrine/Autoimmune: Type 2 diabetes, HyPOthyroidism GI: None, GI bleed : None HEENT: None Psych: Depression Musculoskeletal: None Derm: Psoriasis, Other - Past Surgical History Past Surgical History: Yes General: Colonoscopy Ortho: Amputation, Other - Present Medications Home Medications: Ambulatory Orders Medication Instructions Recorded Confirmed Atorvastatin [Lipitor] 20 mg ORAL DAILY 04/17/17 05/13/22 Ferrous Sulfate 324 mg ORAL BID 04/17/17 05/13/22 Levothyroxine [Synthroid] 75 mcg ORAL DAILY 04/17/17 05/13/22 amLODIPine [Norvasc] 5 mg ORAL DAILY 04/17/17 05/13/22 metFORMIN [Glucophage] 1,000 mg ORAL BID 04/17/17 05/13/22 Acyclovir 400 mg PO DAILY 02/18/22 05/13/22 Metoprolol Succinate [Toprol Xl] 12.5 mg PO DAILY 02/18/22 05/13/22 lisinopriL [Zestril] 5 mg PO DAILY 02/18/22 05/13/22 OLANZapine [Zyprexa] 5 mg PO UD #12 tablet 02/21/22 05/13/22 Prochlorperazine Maleate 10 mg PO Q6HR PRN #30 tablet 02/21/22 05/13/22 ondansetron HCL [Ondansetron HCl] 8 mg PO BID PRN #30 tablet 02/21/22 05/13/22 Apixaban [Eliquis] 5 mg PO BID 03/04/22 05/13/22 HYDROcod/ACETAM 5/325 [[place] 5/325] 1 each PO Q6H PRN #15 tablet 03/25/22 05/13/22 - Allergies Allergies/Adverse Reactions: Allergies Allergy/AdvReac Type Severity Reaction Status Date / Time cephalexin [From Keflex] AdvReac Itching Verified 06/03/22 15:34 - Social History Does the pt smoke?: No Smoking Status: Never smoker Does the pt drink ETOH?: No Does the pt have substance abuse?: No - Immunizations Immunizations are current?: Yes - POLST Patient has POLST: Yes POLST Status: DNR PD ED PE NORMAL - Vitals Vital signs reviewed: Yes - General General: Alert and oriented X 3, No acute distress, Well developed/nourished - HEENT HEENT: Ears normal, Pharynx benign - Neck Neck: Supple, no meningeal sign, No adenopathy - Cardiac Cardiac: No: RRR (tachycardic without murmur. Regular rhythm by auscultation. ) - Respiratory Respiratory: No respiratory distress, Clear bilaterally - Abdomen Abdomen: Normal bowel sounds, Soft, Non tender, Non distended - Female Female : Deferred - Rectal Rectal: Deferred - Back Back: No CVA TTP - Derm Derm: Warm and dry. No: Normal color (mild pallor) - Extremities Extremities: No edema, No calf tenderness / cord - Neuro Neuro: Alert and oriented X 3, No motor deficit, Normal speech Results - Vitals Vitals: Vital Signs - 24 hr 06/03/22 06/03/22 15:29 16:39 Temperature 101.4 C H Heart Rate 110 H 107 H Respiratory 19 17 Rate Blood Pressure 135/81 H 153/93 H O2 Saturation 98 99 Oxygen O2 Source Room air - Labs Labs: Laboratory Tests 06/03/22 06/03/22 06/03/22 16:03 16:03 16:03 WBC 0.5 L* RBC 2.72 L Hgb 7.7 L Hct 24.1 L MCV 88.6 MCH 28.3 MCHC 32.0 RDW 14.9 Plt Count 248 MPV 9.9 Neut # (Auto) Not Reportable Lymph # (Auto) Not Reportable [place] # (Auto) Not Reportable Eos # (Auto) Not Reportable Baso # (Auto) Not Reportable Absolute Nucleated RBC Not Reportable Total Counted 100 Band Neuts % (Manual) 2 Abnorm Lymph % (Manual) 0 Nucleated RBC % Not Reportable Neutrophils # (Manual) 0.2 L* Lymphocytes # (Manual) 0.1 L Monocytes # (Manual) 0.1 Eosinophils # (Manual) 0.0 Basophils # (Manual) 0.0 Differential Comment MANUAL DIFFERENTIAL Platelet Estimate NORMAL (130-450,000) Platelet Morphology NORMAL APPEARANCE RBC Morph Micro Appear 1+ [place] Sodium 134 L Potassium 3.7 Chloride 97 L Carbon Dioxide 23 Anion Gap 14.0 H BUN 9 Creatinine 0.8 Estimated GFR (MDRD) 72 L Glucose 169 H Lactic Acid 3.6 H* Calcium 7.9 L Total Bilirubin 0.8 AST 19 ALT 11 Alkaline Phosphatase 67 Total Protein 6.0 L Albumin 3.1 L Globulin 2.9 Albumin/Globulin Ratio 1.1 Lipase 25 Procalcitonin Nasal Adenovirus (PCR) Nasal B. parapertussis DNA (PCR) Nasal Coronavir 229E PCR Nasal Coronavir HKU1 PCR Nasal Coronavir NL63 PCR Nasal Coronavir OC43 PCR Nasal Enterovir/Rhinovir PCR Nasal Influenza B PCR Nasal Influenza A PCR Nasal Parainfluen 1 PCR Nasal Parainfluen 2 PCR Nasal Parainfluen 3 PCR Nasal Parainfluen 4 PCR Nasal RSV (PCR) Nasal B.pertussis DNA PCR Nasal C.pneumoniae (PCR) Christopher Human Metapneumo PCR Nasal M.pneumoniae (PCR) Nasal SARS-CoV-2 (PCR) 06/03/22 06/03/22 16:03 16:45 WBC RBC Hgb Hct MCV MCH MCHC RDW Plt Count MPV Neut # (Auto) Lymph # (Auto) [place] # (Auto) Eos # (Auto) Baso # (Auto) Absolute Nucleated RBC Total Counted Band Neuts % (Manual) Abnorm Lymph % (Manual) Nucleated RBC % Neutrophils # (Manual) Lymphocytes # (Manual) Monocytes # (Manual) Eosinophils # (Manual) Basophils # (Manual) Differential Comment Platelet Estimate Platelet Morphology RBC Morph Micro Appear Sodium Potassium Chloride Carbon Dioxide Anion Gap BUN Creatinine Estimated GFR (MDRD) Glucose Lactic Acid Calcium Total Bilirubin AST ALT Alkaline Phosphatase Total Protein Albumin Globulin Albumin/Globulin Ratio Lipase Procalcitonin 0.20 Nasal Adenovirus (PCR) NOT DETECTED Nasal B. parapertussis DNA (PCR) NOT DETECTED Nasal Coronavir 229E PCR NOT DETECTED Nasal Coronavir HKU1 PCR NOT DETECTED Nasal Coronavir NL63 PCR NOT DETECTED Nasal Coronavir OC43 PCR NOT DETECTED Nasal Enterovir/Rhinovir PCR NOT DETECTED Nasal Influenza B PCR NOT DETECTED Nasal Influenza A PCR NOT DETECTED Nasal Parainfluen 1 PCR NOT DETECTED Nasal Parainfluen 2 PCR NOT DETECTED Nasal Parainfluen 3 PCR NOT DETECTED Nasal Parainfluen 4 PCR NOT DETECTED Nasal RSV (PCR) NOT DETECTED Nasal B.pertussis DNA PCR NOT DETECTED Nasal C.pneumoniae (PCR) NOT DETECTED Christopher Human Metapneumo PCR NOT DETECTED Nasal M.pneumoniae (PCR) NOT DETECTED Nasal SARS-CoV-2 (PCR) NOT DETECTED - Rads (name of study) chest xray Radiology: Prelim report reviewed, EMP read indepedently (no infiltrates nor acute findings. ), See rad report PD Medical Decision Making - ED course Complexity details: reviewed old records (I did review today's oncology note from the [facility].), reviewed results (The patient is neutropenic with white count of 0.5 and a neutrophil count of 0.2. This does make her neutropenic and with the fever there would be concern for bacterial infections or ability for sepsis. Her lactic acid level is 3.6.), considered differential (The patient presents with abrupt fever today. She is status postchemotherapy 5 days ago for Hodgkin's lymphoma. She has had several courses of chemo of the same type without any problems. She gets filgrastim G/C SN[facility] daily for 5 days and this was her fifth day. She was getting at the [facility].), d/w patient, d/w family (daughter) Reviewed Lab Results: The patient does have a neutropenia with a neutrophil count of 200. Her lactic acid level is 3.6 which would be concerning for sepsis. She overall does not look that bad clinically and did have an abrupt fever with some malaise just this afternoon while at the [facility] clinic. She had received a IV dose of filgrastim and was getting IV fluids for hydration when she developed a fever. Consideration could be a drug adverse reaction as fever can be side effect of this. However she is new to be neck is at risk for serious bacterial infection and a reaction to the medication would be a diagnosis of exclusion with first needing to ensure no more serious causes. We did obtain blood cultures from the port and central line and also one peripherally. Bloods were obtained for blood count, chemistry panel, lactic acid level. We will also obtain a urine and chest x-ray to look for other sources of infection. She has had some loose stool/diarrhea for the last 2 to 3 weeks. They thought she had had a stool study last week but I cannot find any in the computer system in the oncologist note from the clinic today asks that a C. difficile test be obtained. We are still waiting for stool and urine samples from the patient. However we are initiating IV antibiotics promptly for concern of bacterial infection. Blood cultures have already been obtained. The patient's heart rate and blood pressure are good and clinically she does not appear in developing sepsis at this time. ED course: The patient has comorbidity significantly of Hodgkin's lymphoma and is getting serial doses of chemotherapy. Her most recent was 5 days ago of Rituxan. She has a low white count and is getting Granix IV daily. She is neutropenic and this from this and creates a significant concern for sepsis. Departure - Departure Disposition: [facility] DC/Xfer Clinical Impression: Neutropenic fever, Lymphoma, Hodgkin's, Elevated lactic acid level Condition: Stable Record reviewed to determine appropriate education?: Yes
[2022-06-03] MEDS ORDERED: SODIUM CHLORIDE 0.9% 1,000 ML IV STA ×2 (15:48→16:48)
[2022-06-03] MEDS ORDERED: ACETAMINOPHEN 500 MG TABLET PO STA (15:50)
--- NOTE | 2022-06-03 16:10 | XRAY Report ---
PROCEDURE: Chest 1 View X-Ray INDICATIONS: fever, s/p chemo TECHNIQUE: One view of the chest was acquired. COMPARISON: Prior chest 2 views 03/18/2022 FINDINGS: Surgical changes and devices: Port-A-Cath present from right-sided approach, tip in the azygos arch area of the superior vena cava region. Lungs and pleura: No pleural effusions or pneumothorax. Lungs are clear. Mediastinum: Mediastinal contours appear normal. Heart size is normal. Bones and chest wall: No suspicious bony lesions. Overlying soft tissues appear unremarkable. IMPRESSION: No pneumonia found. Port-A-Cath positioning as discussed, within azygos arch area of the superior jeremy a cava region. Reviewed by: Doug Cunningham MD on 06/03/2022 4:09 PM PST Approved by: Doug Cunningham MD on 06/03/2022 4:09 PM PST Station ID: [id number]
[2022-06-03 16:12] LABS: BASOPHILS % (AUTO) 11.3 %; HCT - HEMATOCRIT 24.1 % (37.0-47.0); HGB - HEMOGLOBIN 7.7 g/dL (12.0-16.0); LYMPHOCYTES % (AUTO) 24.5 %; MEAN CORPUSCULAR HEMOGLOBIN 28.3 pg (27.0-31.0); MEAN CORPUSCULAR VOLUME 88.6 fL (81.0-99.0); MEAN PLATELET VOLUME 9.9 fL (7.9-10.8); MONOCYTES % (AUTO) 24.5 %; NEUTROPHILS % (AUTO) 32.2 %; PLT - PLATELET COUNT 248 10^3/uL (130-450); RED BLOOD COUNT 2.72 10^6/uL (4.20-5.40); RED CELL DISTRIBUTION WIDTH 14.9 % (12.0-15.0)
[2022-06-03 16:17] LABS: WHITE BLOOD COUNT 0.5 x10^3/uL (4.8-10.8)
[2022-06-03 16:18] LABS: ABNORMAL LYMPHS % (MANUAL) 0 %
[2022-06-03 16:26] LABS: ALBUMIN 3.1 g/dL (3.2-5.5); ALBUMIN/GLOBULIN RATIO 1.1 (1.0-2.2); BILIRUBIN,TOTAL 0.8 mg/dL (0.2-1.0); CALCIUM 7.9 mg/dL (8.5-10.3); CREATININE 0.8 mg/dL (0.4-1.0); POTASSIUM 3.7 mmol/L (3.5-5.0)
[2022-06-03 16:56] LABS: BAND NEUTROPHILS % (MANUAL) 2 %; BASOPHILS % (MANUAL) 9 %; LYMPHOCYTES # (MANUAL) 0.1 10^3/uL (1.5-3.5); LYMPHOCYTES % (MANUAL) 23 %; MONOCYTES # (MANUAL) 0.1 10^3/uL (0.0-1.0)
[2022-06-03 16:58] LABS: DIFFERENTIAL COMMENT MANUAL DIFFERENTIAL; PLATELET ESTIMATE, MANUAL NORMAL (130-450,000) (NORMAL); PLATELET MORPHOLOGY NORMAL APPEARANCE (NORMAL); RBC MORPHOLOGY (MULTIPLE) 1+ ROULEAUX (NORMAL)
[2022-06-03] MEDS ORDERED: ONDANSETRON ODT 4 MG TABLET TL PRN (17:28)
[2022-06-03] MEDS ORDERED: SODIUM CHLORIDE FLUSH 0.9% 10 ML SYRINGE IVP PRN (17:28)
[2022-06-03] MEDS ORDERED: ONDANSETRON 4 MG/2 ML VIAL IVP PRN (17:28)
[2022-06-03] MEDS ORDERED: PIPERACILLIN/TAZOBACTAM 4.5 GM in SODIUM CHLORIDE 0.9% MINIBAG 100 ML IV STA (17:32)
[2022-06-03 17:42] LABS: B. PARAPERTUSSIS- RESP PCR PAN NOT DETECTED; B. PERTUSSIS- RESP PCR PANEL NOT DETECTED; C. PNEUMONIAE- RESP PCR PANEL NOT DETECTED; CORONAVIRUS 229E-RESP PCR NOT DETECTED; CORONAVIRUS HKU1-RESP PCR NOT DETECTED; CORONAVIRUS NL63-RESP PCR NOT DETECTED; CORONAVIRUS OC43-RESP PCR NOT DETECTED; HUMAN METAPNEUMOVIRUS NOT DETECTED; INFLUENZA A- RESP PCR PANEL NOT DETECTED; INFLUENZA B - RESP PCR PANEL NOT DETECTED; M. PNEUMONIAE- RESP PCR PANEL NOT DETECTED; PARAINFLUENZA VIRUS 1 NOT DETECTED; PARAINFLUENZA VIRUS 2 NOT DETECTED; PARAINFLUENZA VIRUS 3 NOT DETECTED; PARAINFLUENZA VIRUS 4 NOT DETECTED; RHINOVIRUS/ENTEROVIRUS NOT DETECTED; RSV- RESP PCR PANEL NOT DETECTED; SARS-CoV-2 -RESP PCR PANEL NOT DETECTED
--- NOTE | 2022-06-03 17:47 | HISTORY & PHYSICAL EXAMINATION ---
Chief Complaint - Chief Complaint Chief Complaint: fever and diarrhea in a chemo patient History of Present Illness - Admitted From Admitted From:: [facility] via home - History Obtained From Records Reviewed: [facility] History obtained from: Dr. Bishop Exam Limitations: none - History of Present Illness HPI Comment/Other: In the summer 2021 she just started suddenly losing "ground". She was exhausted, had no appetite. Had to stop working. And she really did not have a clue about how sick she was until she fell. She was hospitalized at [facility] in December 2021 for ground-level fall and noticed to have A. fib with RVR with acute renal failure. She is already had a previous history in 2018 of bright red blood per rectum with anemia requiring transfusion. During this hospitalization she was transfused as well. CT of the abdomen showed her to have extensive right inguinal and pelvic and retroperitoneal adenopathy. CT of the chest did not have lymphadenopathy. 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 She had a PET/CT, bone marrow biopsy and she was initially treated as large cell lymphoma with 1 cycle of dose adjusted REPOCH and growth factor. When a second review of her pathology showed mixed cellularity classical Hodgkin's lymphoma with EBV association and CD20 expression her treatment changed to AVD/Brentuximab Vedotin/Ritusimab wityh filgrastim daily x 5. That was started in January. She has had neuropathy and chemo therapy related myelosuppression with anemia requiring transfusion. In evaluation for her therapy she had PFTs with a DLCO and she does have moderate diffusion capacity reduction. An echocardiogram was discussed May 27 to assess ejection fraction on chemo. Today while in the [facility] she was having fever, tachycardia, diarrhea. She has been having a rash that breaks out on her arms off and on. There itchy, painful red dots on her forearms. She saw a page technician but they said there was nothing. And that she just needed to use some extra cream. She has been tolerating the chemo up until this week. She is exhausted, but she denied cough, congestion, abdominal pain, urgency, frequency. The diarrhea resulted in 3 Imodium today. She has not had a bowel movement since this morning because of that. She has severe sinus congestion and has been blowing out her sinuses for the last few weeks. Every morning she wakes up completely stuffed and painful. She has been using a Mullens pot every once in a while. Greenish-yellow phlegm. She denies headache, dizziness. No joint pain. She denies vaginal discharge, rectal pain. She was sent to the emergency room and she has neutropenic fever. Oncology is not recommending any further chemo until she is discharged from the hospital. Temperature is 101.4. Heart rate 110. Blood pressure 135/81. Respirations 19 and she is 98% on room air. The ER provider called me to discuss his case and shared with me that nothing was found on physical exam. Chest x-ray is without infiltrate. Urinalysis is pending. Lactic acid is 3.6. Procalcitonin 0.2. White cell count is 0.5 with an ANC of 200. Hemoglobin is 7.7. She dropped to 7.1 in January with that 1 cycle of chemo. Since then she has been between 8 and 9.8 g of hemoglobin. Platelets are 248. Dr. Bishop and I discussed the empiric treatment of neutropenic fever. She is allergic to cephalexin and as such cannot get cefepime. So we are going to use piperacillin and tazobactam. 4.5 g. The ER doctor also wonders if this could be related to her colony-stimulating factor. There is fever associated with that. 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 father age 61 complications of cirrhosis and heart disease. Brother7 siblings. 5 of them are . have been from breast cancer, multiple myeloma, "hole in his heart". She does not remember what the other 2 of. 1 brother and 1 sister are alive and healthy. No children Living arrangement: At home Living Situation: Alone (With 2 cats. She changes their litter box and uses gloves and a mask) Social History Notes: She is single. Never . 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 She worked up until this last summer when her exhaustion just overcame her.She does not smoke. Never did. No history of recreational substance abuse.When she was in her 20s she used to "drink like a fish". Since dad was an alcoholic it alarmed her so she just stopped drinking. - Substance History Use: Uses substance without health or social issues: NONE Abuse: Recurrent use of substance despite neg consequences: NONE Dependence: Experiences withdrawal or developed tolerances: NONE - POLST Patient has POLST: No POLST Status: Full Code Meds/Allgy - Home Medications Home Medications: Ambulatory Orders Medication Instructions Recorded Confirmed Atorvastatin [Lipitor] 20 mg ORAL DAILY 04/17/17 06/03/22 Ferrous Sulfate 324 mg ORAL BID 04/17/17 05/13/22 Levothyroxine [Synthroid] 75 mcg ORAL DAILY 04/17/17 06/03/22 amLODIPine [Norvasc] 5 mg ORAL DAILY 04/17/17 05/13/22 metFORMIN [Glucophage] 1,000 mg ORAL BID 04/17/17 05/13/22 Acyclovir 400 mg PO DAILY 02/18/22 05/13/22 Metoprolol Succinate [Toprol Xl] 12.5 mg PO DAILY 02/18/22 06/03/22 lisinopriL [Zestril] 2.5 mg PO DAILY 02/18/22 06/03/22 OLANZapine [Zyprexa] 5 mg PO UD #12 tablet 02/21/22 06/03/22 Prochlorperazine Maleate 10 mg PO Q6HR PRN #30 tablet 02/21/22 05/13/22 ondansetron HCL [Ondansetron HCl] 8 mg PO BID PRN #30 tablet 02/21/22 05/13/22 Apixaban [Eliquis] 5 mg PO BID 03/04/22 06/03/22 HYDROcod/ACETAM 5/325 [[place] 5/325] 1 each PO Q6H PRN #15 tablet 03/25/22 05/13/22 - Allergies Allergies/Adverse Reactions: Allergies Allergy/AdvReac Type Severity Reaction Status Date / Time cephalexin [From Keflex] AdvReac Itching Verified 06/03/22 15:34 Review of Systems - Constitutional Constitutional: reports: Fatigue, Fever, Chills, Malaise, Weakness, Poor appetite - Eyes Eyes: denies: Amaurosis, Blurred vision, Vision loss - Ears, Nose & Throat Ears, Nose & Throat: denies: Ear pain, Nasal obstruction, Nasal congestion, Sore throat, Hoarseness - Cardiovascular Cariovascular: reports: Decr. exercise tolerance. denies: Irregular heart rate, Palpitations, Chest pain - Respiratory Respiratory: denies: Cough, Sputum production, Wheezing - Gastrointestinal Gastrointestinal: reports: Abdominal distention, Diarrhea, Nausea. denies: Abdominal pain, Constipation, Rectal bleeding, Black stools, Bloody stools, Vomiting, Coffee grounds emesis, Reflux/heartburn - Genitourinary Genitourinary: denies: Dysuria, Frequency, Urgency, Nocturia - Integumentary Integumentary: denies: Rash - Neurological Neurological: reports: General weakness. denies: Focal weakness, Headache, Dizziness - Psychiatric Psychiatric: denies: Depression, Anxiety, Suicidal - Endocrine Endocrine: reports: Intolerance to cold. denies: Polyuria, Polydypsia, Polyphagia - Hematologic/Lymphatic Hematologic/Lymphatic: reports: Anemia, Bruising, Lymphadenopathy Prior Level of Functionality: She has generalized weakness due to the chemo. But she still able to dress herself, feed herself. Has not been able to work since last summer. Relies on her niece to help her with driving, getting to appointments etc. but still lives alone Exam - Vital Signs Reviewed Vital Signs: Yes Vital Signs: Vital Signs x48h Temp Pulse Resp BP Pulse Ox 06/03/22 16:39 107 H 17 153/93 H 99 06/03/22 15:29 101.4 C H 110 H 19 135/81 H 98 - Physical Exam General Appearance: positive: No acute distress, Alert, Other (Fatigued appearing white female who has patchy alopecia, nasal tone of voice, and laying comfortably in bed with niece sitting in the chair at the bedside) Eyes Bilateral: positive: PERRL, EOMI ENT: positive: Dry mucous membranes, Other (Crusty nares). negative: Purulent nasal drainage, Pharyngeal erythema Neck: positive: No JVD. negative: Stiff neck Respiratory: positive: Chest non-tender (Port-A-Cath insertion site clean, no redness, fluctuance or drainage), No respiratory distress. negative: Wheezes, Rales, Rhonchi Cardiovascular: positive: Regular rate & rhythm, Tachycardia Peripheral Pulses: positive: 1+ Abdomen: positive: Non-tender, No organomegaly, Nml bowel sounds, No distention Skin: positive: Warm, Dry, Other (She does have punctate areas on both forearms but they look like abrasions from where he scratched. I am not seeing the red dot she is talking about. Skin is dry) Extremities: positive: Full ROM, No pedal edema. negative: Calf tenderness, Joint swelling, Heraclio's sign/cords Neurologic/Psychiatric: positive: Oriented x3, CN's nml (2-12), Motor nml Conclusion/Plan - Problem List (1) Neutropenic fever Conclusion/Plan: She has a port, but there is no fluctuance, redness or pain Urinalysis is pending and I will review Chest x-ray is negative She does have sinus congestion and has been blowing her sinuses with sinus pain for the last few weeks so this could be a source of infection. Plan: Inpatient status Cefepime cannot be used because of cephalexin allergies and she is on Zosyn Check limited CT of sinuses to make sure sinusitis is not a problem Neutropenic diet (2) Lactic acidosis Conclusion/Plan: Recheck to make sure she is responded to antibiotics and IV fluids While she is not septic, her lactic acidosis could be infection. The other cause could be the fact that she uses metformin. And she was using metformin and compliant with that in the face of daily diarrhea. Considering diarrhea is a side effect of metformin, or a side effect of chemo, I may recommend that she come off metformin while she is undergoing chemotherapy (3) Lymphoma, Hodgkin's Conclusion/Plan: Currently followed by the [facility], oncology division. Today's note from the MAC read. Echocardiogram was mention, however there is no sales service technician available until next Justine Qualifiers: Hodgkin lymphoma type: mixed cellularity (4) Diabetes mellitus type II, controlled Conclusion/Plan: On metformin. In the face of diarrhea probably not recommended. Plan: A1c in the morning Sliding scale insulin Neutropenic diet Qualifiers: Diabetes mellitus jail insulin use: without jail use Diabetes mellitus complication status: without complication Qualified Code(s): E11.9 - Type 2 diabetes mellitus without complications (5) Anemia due to chemotherapy Conclusion/Plan: She does have a previous history of GI bleeds. However, with this acute episode of care, she denies GI symptomatology on review of systems. Plan: Transfuse if below 7 g of hemoglobin (6) Hypertension Conclusion/Plan: In spite of the dehydration and diarrhea, she is with a normal blood pressure and slightly hypertensive. I will resume her usual home medications. Qualifiers: Hypertension type: primary hypertension Qualified Code(s): I10 - Essential (primary) hypertension (7) Diarrhea Conclusion/Plan: This lady is on metformin. This causes diarrhea. She is getting chemotherapy which can cause diarrhea. And she changes her kidney litter box. She could also have diarrhea from new infectious cause whether it is viral or bacterial. Plan: Check C. difficile Check stool culture and ova and parasites Qualifiers: Diarrhea type: unspecified type Qualified Code(s): R19.7 - Diarrhea, unspecified (8) Dehydration Conclusion/Plan: Oral mucosa was dry, and she felt lightheaded with standing. Now that she has had 2 L of fluid she she says she is hungry and would like to eat a sandwich. Creatinine was normal with this. We will continue IV fluids - Lab Results Lab results reviewed: Yes Fish Bones: 06/03/22 16:03 06/03/22 16:03 Other Lab Results: Urinalysis is negative for ketonuria, nitrates, leukocyte Estrace. No white cells, red cells. - Diagnostic Imaging Results Diagnostic Imaging Results: positive: Final report reviewed Diagnostic Imaging Results Comments: Chest x-ray with no pneumonia found. Port-A-Cath positioning is from a right- sided approach, tip in the azygous arch. Core Measures - Anticipated LOS I expect patient to be DC'd or transferred within 96 hours.: Yes - DVT/VTE - Prophylaxis VTE/DVT Prophylaxis med ordered at admit?: Yes
[2022-06-03] MEDS ORDERED: lisinopriL 5 MG TABLET PO STA (17:52)
[2022-06-03 18:28] LABS: BILIRUBIN,URINE NEGATIVE (NEGATIVE); GLUCOSE, URINE (UA) NEGATIVE (NEGATIVE); KETONES,URINE (UA) NEGATIVE (NEGATIVE); LEUKOCYTE ESTERASE, URINE NEGATIVE (NEGATIVE); NITRITE,URINE NEGATIVE (NEGATIVE); OCCULT BLOOD,URINE NEGATIVE (NEGATIVE); PH,URINE 5.5 PH (5.0-7.5); PROTEIN,URINE TRACE mg/dL (NEGATIVE); UROBILINOGEN,URINE 0.2 (NORMAL) E.U./dL (NORMAL)
[2022-06-03 18:31] LABS: CLARITY,URINE CLEAR (CLEAR)
[2022-06-03] MEDS: SODIUM CHLORIDE 0.9% 1,000 ML IV SCH (18:55)
[2022-06-03 20:07] LABS: NEUTROPHILS # (MANUAL) 0.2 10^3/uL (1.5-6.6)
[2022-06-03] MEDS: APIXABAN 5 MG TABLET PO SCH (21:57)
[2022-06-03] MEDS: METOPROLOL TARTRATE 25 MG TABLET PO SCH (21:57)
[2022-06-03] MEDS: SODIUM CHLORIDE FLUSH 0.9% 10 ML SYRINGE IVP SCH (23:27)
--- NOTE | 2022-06-04 00:56 | CT Report ---
PROCEDURE: SINUS SCREENING WO INDICATIONS: neutropenic fever and sinus pain, congestion, disc TECHNIQUE: Noncontrast 3.0 mm axial images acquired from the frontal sinuses to the mid-sella, with coronal and sagittal reformats. For radiation dose reduction, the following was used: automated exposure control , adjustment of mA and/or kV according to patient size. COMPARISON: None. FINDINGS: Image quality: Excellent. Maxillary Sinuses: There is bilateral mucosal thickening within the maxillary sinuses, moderate on t he left and mild on the right. There are associated air-fluid levels consistent with acute sinusitis. No bony remodeling or destruction. Ethmoid Air Cells: There is mild residual mucosal thickening within the ethmoid air cells. No bony r emodeling or destruction. Sphenoid Sinuses: There is near complete mucosal opacification of the left sphenoid sinus with an ai r-fluid level suggestive of acute sinusitis. Mild mucosal thickening demonstrated within a small righ t sphenoid sinus. No bony remodeling wall or destruction. Frontal Sinuses: Frontal sinuses are clear. No bony remodeling or destruction. Ostiomeatal Complexes: Ostiomeatal complexes there is a moderate mucosal thickening on the left. The re is also mild mucosal thickening on the right. No Ivan cells. Miscellaneous: Visualized intra-orbital contents are normal. No paola bullosa. No nasal septal deviation. IMPRESSION: 1. Extensive sinus mucosal disease with scattered air-fluid levels suggestive of acute sinusitis. Reviewed by: Mundo Stallings MD on 06/04/2022 1:05 AM PST Approved by: Mundo Stallings MD on 06/04/2022 1:05 AM PST Station ID: [id number]
[2022-06-04] MEDS: ACETAMINOPHEN 325 MG TABLET PO PRN ×3 (05:06→19:30)
[2022-06-04] MEDS: SODIUM CHLORIDE 0.9% 1,000 ML IV SCH ×2 (05:08→19:31)
[2022-06-04 05:29] LABS: CALCIUM 7.5 mg/dL (8.5-10.3); CREATININE 0.7 mg/dL (0.4-1.0); POTASSIUM 3.2 mmol/L (3.5-5.0)
[2022-06-04 05:32] LABS: BASOPHILS % (AUTO) 6.6 %; HCT - HEMATOCRIT 20.8 % (37.0-47.0); LYMPHOCYTES % (AUTO) 37.4 %; MEAN CORPUSCULAR HEMOGLOBIN 29.1 pg (27.0-31.0); MEAN CORPUSCULAR HGB CONC 32.7 g/dL (32.0-36.0); MEAN CORPUSCULAR VOLUME 88.9 fL (81.0-99.0); MEAN PLATELET VOLUME 9.9 fL (7.9-10.8); MONOCYTES % (AUTO) 28.6 %; NEUTROPHILS % (AUTO) 27.4 %; PLT - PLATELET COUNT 233 10^3/uL (130-450); RED BLOOD COUNT 2.34 10^6/uL (4.20-5.40)
[2022-06-04 05:56] LABS: HGB - HEMOGLOBIN 6.8 g/dL (12.0-16.0); WHITE BLOOD COUNT 0.9 x10^3/uL (4.8-10.8)
[2022-06-04 05:58] LABS: ABNORMAL LYMPHS % (MANUAL) 0 %
[2022-06-04 06:36] LABS: BAND NEUTROPHILS % (MANUAL) 6 %; BASOPHILS # (MANUAL) 0.1 10^3/uL (0-0.1); BASOPHILS % (MANUAL) 6 %; LYMPHOCYTES # (MANUAL) 0.4 10^3/uL (1.5-3.5); LYMPHOCYTES % (MANUAL) 44 %; MONOCYTES # (MANUAL) 0.2 10^3/uL (0.0-1.0); NEUTROPHILS # (MANUAL) 0.3 10^3/uL (1.5-6.6)
[2022-06-04 06:37] LABS: DIFFERENTIAL COMMENT MANUAL DIFFERENTIAL; PLATELET ESTIMATE, MANUAL NORMAL (130-450,000) (NORMAL)
[2022-06-04] MEDS ORDERED: PIPERACILLIN/TAZOBACTAM 4.5 GM in SODIUM CHLORIDE 0.9% MINIBAG 100 ML IV SCH ×3 (08:00→15:00)
[2022-06-04] MEDS: APIXABAN 5 MG TABLET PO SCH ×2 (08:31→20:38)
[2022-06-04] MEDS: METOPROLOL TARTRATE 25 MG TABLET PO SCH ×2 (08:31→20:37)
[2022-06-04] MEDS ORDERED: ENOXAPARIN 40 MG/0.4 ML SYRINGE SUBQ SCH (09:00)
[2022-06-04] MEDS: oxyCODONE 5 MG TABLET PO PRN ×2 (10:37→19:30)
[2022-06-04] MEDS: SODIUM CHLORIDE FLUSH 0.9% 10 ML SYRINGE IVP SCH ×2 (10:55→17:13)
--- NOTE | 2022-06-04 11:15 | PHARMACY PROGRESS NOTE ---
- Best Possible Medication History Admit Date and Time: 06/03/22 1728 Processed by: Pharmacy Medication History completed: Yes Patient Interview: Completed Secondary Source(s): Physician records, Pharmacy records, Insurance records As the person ultimately responsible for medication therapy, providers are able to order a medication from an existing home medication list in [facility] via the "Reconcile Routine" prior to Confirmation of that medication by network support manager. Such practice is discouraged except when the physician, in their clinical judgment, deems that a medical need exists for a medication without regard to previous use.
[2022-06-04] MEDS ORDERED: POTASSIUM CHLORIDE 20 MEQ TABLET PO ONE (18:20)
--- NOTE | 2022-06-04 18:23 | PROVIDER PROGRESS NOTE ---
Progress Note June 04, 2022 6:14 PM Patient was seen this morning with her daughter at the bedside. She has had low-grade temps to 37.4 but no karis elevation of temperature she did on admission. I had ordered a CT of the sinuses last night when she shared with me that she has been having sinus problems for the last few weeks. Sinus CT does show extensive sinus mucosal disease with scattered air-fluid levels suggestive of acute sinusitis. This is the source of her fever in the face of neutropenia. She does use a [place] pot erratically at home and uses distilled water. When asked how she is feeling, she smiles faintly and says "I am just miserable". Active Medications Acetaminophen (Acetaminophen 325 Mg Tablet) 650 mg PO Q4HR PRN PRN Reason: Pain 1 to 4, or Fever Last Admin: 06/04/22 10:37 Dose: 650 mg Apixaban (Apixaban 5 Mg Tablet) 5 mg PO BID [facility] Last Admin: 06/04/22 08:31 Dose: 5 mg Sodium Chloride (Normal Saline 0.9%) 1,000 mls @ 100 mls/hr IV .Q10H [facility] Last Infusion: 06/04/22 14:25 Dose: 100 mls/hr Piperacillin Sod/Tazobactam (Sod 4.5 gm/ Sodium Chloride) 100 mls @ 25 mls/hr IV Q8H [facility] Metoprolol Tartrate (Metoprolol Tartrate 25 Mg Tablet) 12.5 mg PO BID [facility] Last Admin: 06/04/22 08:31 Dose: 12.5 mg Ondansetron HCl (Ondansetron Odt 4 Mg Tablet) 4 mg TL Q6HR PRN PRN Reason: Nausea / Vomiting Ondansetron HCl (Ondansetron 4 Mg/2 Ml Vial) 4 mg IVP Q6HR PRN PRN Reason: Nausea / Vomiting Oxycodone HCl (Oxycodone 5 Mg Tablet) 5 mg PO Q4HR PRN PRN Reason: Pain 5 to 7 Last Admin: 06/04/22 10:37 Dose: 5 mg Potassium Chloride (Potassium Chloride 20 Meq Tablet) 40 meq PO ONCE ONE Stop: 06/04/22 18:21 Sodium Chloride (Sodium Chloride Flush 0.9% 10 Ml Syringe) 10 ml IVP PRN PRN PRN Reason: NEEDED PER PROVIDER ORDERS Sodium Chloride (Sodium Chloride Flush 0.9% 10 Ml Syringe) 10 ml IVP 0100,0900,1700 BARBER Last Admin: 06/04/22 17:13 Dose: Not Given Home Meds: Atorvastatin [Lipitor] 20 mg ORAL DAILY 04/17/17 Ferrous Sulfate 324 mg ORAL BID 04/17/17 Levothyroxine [Synthroid] 75 mcg ORAL DAILY 04/17/17 to be resumed today amLODIPine [Norvasc] 5 mg ORAL DAILY 04/17/17 metFORMIN [Glucophage] 1,000 mg ORAL BID 04/17/17 Metoprolol Succinate [Toprol Xl] 12.5 mg PO DAILY 02/18/22 lisinopriL [Zestril] 2.5 mg PO DAILY 02/18/22 resume today Apixaban [Eliquis] 5 mg PO BID 03/04/22 Exam: Temperature 37.3, pulse 84, blood pressure 137/75, respirations 18, 100% saturated on 1-1/2 L Very fatigued appearing white female who looks older than stated age, patchy alopecia, dry oral mucosa much improved from yesterday to today. Shotty neck adenopathy that is with a supple neck Diminished breath sounds at the bases but no respiratory distress, and clear of crackles rhonchi or wheezing. Port line is without fluctuance or redness Regular rate and rhythm with a systolic murmur Abdomen soft, nontender, hypoactive bowel sounds. She had been having diarrhea before admission. She has not been able to give us a stool for C. difficile toxin. She is eating 90 to 100% of her food. Extremities are warm, no edema or body rashes Neurologically she is alert, oriented to person place and time, no focal deficits Blood cultures without growth Assessment/plan: 1. Neutropenic fever. On empiric antibiotic therapy her fever has resolved. White cell count was 0.5 on admission and is now 0.9. ANC appears to be 300 today. I have explained that the source of her fever may be the sinusitis. Once her ANC is above 500, I will transition her over to Z-Neal for 5 days, wait 5 days and and then another Z-Neal. 2. Acute sinusitis. Treatment as above 3. Pancytopenia due to chemotherapy. Today hemoglobin is dropped below 7 and I will transfuse. 4. Lactic acidosis has resolved. I would not recommend that she resume metformin in the outpatient setting while she is on chemotherapy. 5. Type 2 diabetes mellitus, controlled. Without complication. Without long- term use of insulin. At this time I am just monitoring her glucose. Yesterday afternoon she was 169. This morning, fasting, she is 131. If glucose rises above 150 on a regular basis, will start sliding scale insulin. 6. Hypokalemia. Supplement p.o. and recheck in the morning. 7. Dehydration. Resolved on physical exam 8. Diarrhea. Appears to have resolved. 9. Hodgkin's lymphoma. To continue to be followed by [facility]. Goal is curative and she will continue with chemotherapy when she leaves the hospital. 10. Hypertension. At home she is on amlodipine and lisinopril. Blood pressure is stable today. Those will be resumed. 11. Atrial fibrillation history. She is on Eliquis at home. That has been resumed already. Metoprolol 12.5 p.o. twice daily has also been resumed already.
[2022-06-04] MEDS: PIPERACILLIN/TAZOBACTAM 4.5 GM in SODIUM CHLORIDE 0.9% MINIBAG 100 ML IV SCH (19:31)
[2022-06-04] MEDS: FERROUS SULFATE 325 MG TABLET PO SCH (20:38)
[2022-06-05 08:09] LABS: CALCIUM 7.7 mg/dL (8.5-10.3); CREATININE 0.8 mg/dL (0.4-1.0); POTASSIUM 3.4 mmol/L (3.5-5.0)
[2022-06-05] MEDS: METOPROLOL SUCCINATE 50 MG TABLET PO SCH (08:52)
[2022-06-05] MEDS: LEVOTHYROXINE 25 MCG TABLET PO SCH (08:52)
[2022-06-05] MEDS: METOPROLOL TARTRATE 25 MG TABLET PO SCH ×2 (08:53→20:51)
[2022-06-05] MEDS: lisinopriL 5 MG TABLET PO SCH (08:54)
[2022-06-05] MEDS: amLODIPine 5 MG TABLET PO SCH (08:54)
[2022-06-05] MEDS: APIXABAN 5 MG TABLET PO SCH ×2 (08:54→20:52)
[2022-06-05] MEDS: FERROUS SULFATE 325 MG TABLET PO SCH ×2 (08:55→20:52)
[2022-06-05] MEDS ORDERED: OLANZapine ODT 5 MG TABLET TL SCH (09:00)
[2022-06-05] MEDS: SODIUM CHLORIDE 0.9% 1,000 ML IV SCH ×3 (09:29→22:53)
[2022-06-05] MEDS: SODIUM CHLORIDE FLUSH 0.9% 10 ML SYRINGE IVP SCH ×3 (09:29→16:18)
[2022-06-05] MEDS: PIPERACILLIN/TAZOBACTAM 4.5 GM in SODIUM CHLORIDE 0.9% MINIBAG 100 ML IV SCH (09:29)
[2022-06-05 10:17] LABS: BASOPHILS % (AUTO) 5.1 %; EOSINOPHILS % (AUTO) 0.6 %; HGB - HEMOGLOBIN 8.5 g/dL (12.0-16.0); LYMPHOCYTES % (AUTO) 12.9 %; MEAN CORPUSCULAR HEMOGLOBIN 28.6 pg (27.0-31.0); MEAN CORPUSCULAR HGB CONC 32.7 g/dL (32.0-36.0); MEAN CORPUSCULAR VOLUME 87.5 fL (81.0-99.0); MEAN PLATELET VOLUME 9.9 fL (7.9-10.8); PLT - PLATELET COUNT 251 10^3/uL (130-450); RED BLOOD COUNT 2.97 10^6/uL (4.20-5.40); RED CELL DISTRIBUTION WIDTH 15.2 % (12.0-15.0); WHITE BLOOD COUNT 3.3 x10^3/uL (4.8-10.8)
[2022-06-05 10:20] LABS: ABNORMAL LYMPHS % (MANUAL) 0 %
[2022-06-05 10:23] LABS: BAND NEUTROPHILS % (MANUAL) 15 %; BASOPHILS # (MANUAL) 0.2 10^3/uL (0-0.1); BASOPHILS % (MANUAL) 5 %; DIFFERENTIAL COMMENT MANUAL DIFFERENTIAL; LYMPHOCYTES # (MANUAL) 0.5 10^3/uL (1.5-3.5); LYMPHOCYTES % (MANUAL) 14 %; METAMYELOCYTES % (MANUAL) 5 %; MONOCYTES # (MANUAL) 0.6 10^3/uL (0.0-1.0); MYELOCYTES % (MANUAL) 9 %; NEUTROPHILS # (MANUAL) 1.6 10^3/uL (1.5-6.6); PLATELET ESTIMATE, MANUAL NORMAL (130-450,000) (NORMAL); RBC MORPHOLOGY (MULTIPLE) NORMAL APPEARANCE (NORMAL)
[2022-06-05] MEDS ORDERED: AZITHROMYCIN 250 MG TABLET PO STA (10:54)
[2022-06-05] MEDS ORDERED: POTASSIUM CHLORIDE 20 MEQ TABLET PO ONE (11:00)
--- NOTE | 2022-06-05 12:13 | PROVIDER PROGRESS NOTE ---
Progress Note June 05, 2022 12 PM No new orders or events last night. T-max for yesterday was 37.4. Last temperature spike was June 03 at 101.4. Still exhausted. Still anorexia. But no new pain or complaints. No new rashes. No abdominal pain. Active Medications Acetaminophen (Acetaminophen 325 Mg Tablet) 650 mg PO Q4HR PRN PRN Reason: Pain 1 to 4, or Fever Last Admin: 06/04/22 19:30 Dose: 650 mg Amlodipine Besylate (Amlodipine 5 Mg Tablet) 5 mg PO DAILY [facility] Last Admin: 06/05/22 08:54 Dose: 5 mg Apixaban (Apixaban 5 Mg Tablet) 5 mg PO BID [facility] Last Admin: 06/05/22 08:54 Dose: 5 mg Azithromycin (Azithromycin 250 Mg Tablet) 250 mg PO DAILY [facility] Stop: 06/09/22 09:01 Ferrous Sulfate (Ferrous Sulfate 325 Mg Tablet) 325 mg PO BID [facility] Last Admin: 06/05/22 08:55 Dose: 325 mg Sodium Chloride (Normal Saline 0.9%) 1,000 mls @ 100 mls/hr IV .Q10H [facility] Last Admin: 06/05/22 09:29 Dose: Not Given Levothyroxine Sodium (Levothyroxine 25 Mcg Tablet) 75 mcg PO DAILY [facility] Last Admin: 06/05/22 08:52 Dose: 75 mcg Lisinopril (Lisinopril 5 Mg Tablet) 2.5 mg PO DAILY [facility] Last Admin: 06/05/22 08:54 Dose: 2.5 mg Metoprolol Succinate (Metoprolol Succinate 50 Mg Tablet) 12.5 mg PO DAILY [facility] Last Admin: 06/05/22 08:52 Dose: 12.5 mg Metoprolol Tartrate (Metoprolol Tartrate 25 Mg Tablet) 12.5 mg PO BID [facility] Last Admin: 06/05/22 08:53 Dose: 12.5 mg Ondansetron HCl (Ondansetron Odt 4 Mg Tablet) 4 mg TL Q6HR PRN PRN Reason: Nausea / Vomiting Ondansetron HCl (Ondansetron 4 Mg/2 Ml Vial) 4 mg IVP Q6HR PRN PRN Reason: Nausea / Vomiting Oxycodone HCl (Oxycodone 5 Mg Tablet) 5 mg PO Q4HR PRN PRN Reason: Pain 5 to 7 Last Admin: 06/04/22 19:30 Dose: 5 mg Sodium Chloride (Sodium Chloride Flush 0.9% 10 Ml Syringe) 10 ml IVP PRN PRN PRN Reason: NEEDED PER PROVIDER ORDERS Sodium Chloride (Sodium Chloride Flush 0.9% 10 Ml Syringe) 10 ml IVP 0100,0900,1700 BARBER Last Admin: 06/05/22 09:30 Dose: Not Given HOme Meds: Atorvastatin [Lipitor] 20 mg ORAL DAILY 04/17/17 Ferrous Sulfate 324 mg ORAL BID 04/17/17 Levothyroxine [Synthroid] 75 mcg ORAL DAILY 04/17/17 amLODIPine [Norvasc] 5 mg ORAL DAILY 04/17/17 metFORMIN [Glucophage] 1,000 mg ORAL BID 04/17/17 Metoprolol Succinate [Toprol Xl] 12.5 mg PO DAILY 02/18/22 lisinopriL [Zestril] 2.5 mg PO DAILY 02/18/22 Apixaban [Eliquis] 5 mg PO BID 03/04/22 Exam: Temperature 36.9. Heart rate 92. Blood pressure 131/77. Respirations at 15, 5 feet 7 inches tall, 91 kg Pale, exhausted, white female who looks older than stated age. Patchy alopecia, circles under her eyes, exhausted demeanor Neck is supple, no masses Lungs are clear with diminished breath sounds at the bases and she is able to speak to me, without increased respiratory effort. She appears comfortable. Regular rate and rhythm with a systolic ejection murmur that is stable Abdomen that is soft and nontender Extremities without edema and without rashes or lesions Sodium 137, potassium 3.4, BUN 8, creatinine 0.8. Fasting glucose 165 White cell count 3.3 thousand. Hemoglobin 8.5. Hematocrit 26. If I calculate her ANC on 3.3 thousand white cells with 15% bands, her ANC is 495. Lab reports neutrophils at 1.6 Blood cultures negative after 1 day Assessment/plan: 1. Neutropenic fever. No fever since admission and since initiation of empiric antibiotic therapy. ANC is now close to cutoff point. Source of infection may be acute sinusitis identified on CT of sinuses. Blood cultures negative. UA negative. Plan: Stop IV antibiotics Start azithromycin 5 days, wait 5 days and do another pack If no fever today, may go home tomorrow 2. Acute sinusitis as above. 3. Pancytopenia due to chemotherapy, no transfusion required this admission. Patient appears to be on the rise with regards to his cell counts. 4. Type 2 diabetes mellitus, controlled, without complication, without long- term use of insulin. Home medication is metformin. I will be advising her to probably not use metformin while she is undergoing chemotherapy and to consider using another agent that she can discuss with her PCP. May be a low-dose sulfonylurea, or unfortunately an injectable. Fasting glucose was 131 yesterday. Today is 165. I do not have her on any insulin. She is eating 90 to 100% of her food. Chronic/resolved problems Lactic acidosis Hypokalemia Dehydration Diarrhea Hypertension Hodgkin's lymphoma Chronic atrial fibrillation
[2022-06-05] MEDS: oxyCODONE 5 MG TABLET PO PRN ×2 (13:21→20:52)
[2022-06-05] MEDS: ACETAMINOPHEN 325 MG TABLET PO PRN ×2 (13:22→20:53)
[2022-06-06] MEDS: SODIUM CHLORIDE FLUSH 0.9% 10 ML SYRINGE IVP SCH ×2 (01:39→09:37)
[2022-06-06] MEDS: SODIUM CHLORIDE 0.9% 1,000 ML IV SCH (01:39)
[2022-06-06 05:47] LABS: BASOPHILS % (AUTO) 2.1 %; EOSINOPHILS % (AUTO) 0.4 %; HCT - HEMATOCRIT 25.7 % (37.0-47.0); HGB - HEMOGLOBIN 8.4 g/dL (12.0-16.0); LYMPHOCYTES % (AUTO) 11.9 %; MEAN CORPUSCULAR HEMOGLOBIN 29.1 pg (27.0-31.0); MEAN CORPUSCULAR HGB CONC 32.7 g/dL (32.0-36.0); MEAN CORPUSCULAR VOLUME 88.9 fL (81.0-99.0); MEAN PLATELET VOLUME 9.7 fL (7.9-10.8); MONOCYTES % (AUTO) 18.4 %; NEUTROPHILS % (AUTO) 44.7 %; PLT - PLATELET COUNT 219 10^3/uL (130-450); RED BLOOD COUNT 2.89 10^6/uL (4.20-5.40); RED CELL DISTRIBUTION WIDTH 15.6 % (12.0-15.0); WHITE BLOOD COUNT 4.7 x10^3/uL (4.8-10.8)
[2022-06-06 05:50] LABS: ABNORMAL LYMPHS % (MANUAL) 0 %
[2022-06-06 05:58] LABS: CALCIUM 7.8 mg/dL (8.5-10.3); CREATININE 0.9 mg/dL (0.4-1.0); POTASSIUM 3.4 mmol/L (3.5-5.0)
[2022-06-06 06:04] LABS: BAND NEUTROPHILS % (MANUAL) 3 %; LYMPHOCYTES % (MANUAL) 21 %; METAMYELOCYTES % (MANUAL) 2 %; MONOCYTES # (MANUAL) 0.6 10^3/uL (0.0-1.0); MYELOCYTES % (MANUAL) 10 %; NEUTROPHILS # (MANUAL) 2.5 10^3/uL (1.5-6.6); NUCLEATED RBC (MANUAL) 1 %
[2022-06-06 06:06] LABS: DIFFERENTIAL COMMENT MANUAL DIFFERENTIAL; PLATELET ESTIMATE, MANUAL NORMAL (130-450,000) (NORMAL); PLATELET MORPHOLOGY NORMAL APPEARANCE (NORMAL); RBC MORPHOLOGY (MULTIPLE) 1+ POLYCHROMASIA (NORMAL); WBC MORPHOLOGY (MULTIPLE) NORMAL APPEARANCE (NORMAL)
[2022-06-06] MEDS: LEVOTHYROXINE 25 MCG TABLET PO SCH (08:15)
[2022-06-06] MEDS: ACETAMINOPHEN 325 MG TABLET PO PRN (08:16)
[2022-06-06] MEDS: oxyCODONE 5 MG TABLET PO PRN (08:17)
--- NOTE | 2022-06-06 08:33 | Discharge Plan ---
Discharge Plan Problem Reviewed?: Yes Disposition: Home, Self Care Condition: Stable Prescriptions: Azithromycin 250 mg PO DAILY #4 tablet Azithromycin 500 mg PO ONCE #1 tablet Azithromycin [Zithromax] 250 mg PO DAILY #3 tab Diet: Regular Activity Restrictions: Activity as Tolerated Shower Restrictions: No Driving Restrictions: No Health Concerns: Unfortunately you have lymphoma and you have to take chemotherapy. This results in a lot of fatigue, lack of appetite, hair loss, and it affects your immune system by suppressing your bone marrow. Your white cell counts will drop very low. Sometimes with the white cell count being low, you will then have a fever. We call this neutropenic fever. Many times we never know what causes the patient to have a fever. In your case we found you to have acute sinusitis. Your white cell count is now coming back up again and is in the normal range. You do not have a fever. You are tolerating the antibiotics for the sinusitis. You are now stable to go home Plan of Treatment: You have been started on azithromycin. It does last a long time in your bloodstream so you get a 5-day course now. Then I want you to stop for 5 days as it stays in your bloodstream and then take another 5-day course. It would then stay in your bloodstream another 5 days. This would be a total of about 20 days of treatment. Please see your primary care provider in follow-up. Ms. Ruby will see you for more treatment of your sinuses if you need it. Please see your oncologist at your regularly scheduled visit. We discussed several techniques to improve calorie intake during this treatment for your lymphoma. Care Goals: To get through all of your chemotherapy and hopefully achieve cure of your lymphoma. Assessment: Patient is alert, oriented, able to make her own decisions. Daughter has been a faithful advocate at mom's bedside throughout this entire stay. Daughter is aware of care plan as well. No Smoking: If you smoke, Please STOP! Call for help. Follow-up with: Anu Ruby ARNP [Primary Care Provider] -
[2022-06-06] MEDS ORDERED: AZITHROMYCIN 250 MG TABLET PO SCH (09:00)
[2022-06-06] MEDS: APIXABAN 5 MG TABLET PO SCH (09:30)
[2022-06-06] MEDS: FERROUS SULFATE 325 MG TABLET PO SCH (09:30)
[2022-06-06] MEDS: lisinopriL 5 MG TABLET PO SCH (09:31)
[2022-06-06] MEDS: amLODIPine 5 MG TABLET PO SCH (09:33)
[2022-06-06] MEDS: METOPROLOL SUCCINATE 50 MG TABLET PO SCH (09:35)
[2022-06-06 11:16] VITALS: BP 134/84
--- NOTE | 2022-06-06 19:05 | DISCHARGE SUMMARY ---
Discharge Summary Admit Date: 06/03/22 Discharge Date: 06/06/22 Discharging Provider: Radha Santos MD Primary Care Provider: JANNA Ford Code Status: Attempt Resuscitation Condition at Discharge: Stable Discharge Disposition: 01 Home, Self Care - DIAGNOSES Discharge Diagnoses with Status of Each Condition: 1. Neutropenic fever 2. Acute sinusitis 3. Pancytopenia due to chemotherapy 4. Lactic acidosis 5. Type 2 diabetes mellitus without complications 6. Hypokalemia 7. Dehydration 8. Diarrhea 9, Hodgkin's lymphoma 10. Hypertension 11. History of chronic atrial fibrillation - HPI History of Present Illness: In the summer 2021 she just started suddenly losing "ground". She was exhausted, had no appetite. Had to stop working. And she really did not have a clue about how sick she was until she fell. She was hospitalized at [place] in December 2021 for ground-level fall and noticed to have A. fib with RVR with acute renal failure. She is already had a previous history in 2017 of bright red blood per rectum with anemia requiring transfusion. During this hospitalization she was transfused as well. CT of the abdomen showed her to have extensive right inguinal and pelvic and retro peritoneal adenopathy. CT of the chest did not have lymphadenopathy. 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 She had a PET/CT, bone marrow biopsy and she was initially treated as large cell lymphoma with 1 cycle of dose adjusted REPOCH and growth factor. When a second review of her pathology showed mixed cellularity classical Hodgkin's lymphoma with EBV association and CD20 expression her treatment changed to AVD/Brentuximab Vedotin/Ritusimab wityh filgrastim daily x 5. That was started in January. She has had neuropathy and chemo therapy related myelosuppression with anemia requiring transfusion. In evaluation for her therapy she had PFTs with a DLCO and she does have moderate diffusion capacity reduction. An echocardiogram was discussed May 27 to assess ejection fraction on chemo. Today while in the [facility] she was having fever, tachycardia, diarrhea. She has been having a rash that breaks out on her arms off and on. There itchy, painful red dots on her forearms. She saw a drafter directional survey but they said there was nothing. And that she just needed to use some extra cream. She has been tolerating the chemo up until this week. She is exhausted, but she denied cough, congestion, abdominal pain, urgency, frequency. The diarrhea resulted in 3 Imodium today. She has not had a bowel movement since this morning because of that. She has severe sinus congestion and has been blowing out her sinuses for the last few weeks. Every morning she wakes up completely stuffed and painful. She has been using a Gaby pot every once in a while. Greenish-yellow phlegm. She denies headache, dizziness. No joint pain. She denies vaginal discharge, rectal pain. She was sent to the emergency room and she has neutropenic fever. Oncology is not recommending any further chemo until she is discharged from the hospital. Temperature is 101.4. Heart rate 110. Blood pressure 135/81. Respirations 19 and she is 98% on room air. The ER provider called me to discuss his case and shared with me that nothing was found on physical exam. Chest x-ray is without infiltrate. Urinalysis is pending. Lactic acid is 3.6. Procalcitonin 0.2. White cell count is 0.5 with an ANC of 200. Hemoglobin is 7.7. She dropped to 7.1 in January with that 1 cycle of chemo. Since then she has been between 8 and 9.8 g of hemoglobin. Platelets are 248. Dr. Bishop and I discussed the empiric treatment of neutropenic fever. She is allergic to cephalexin and as such cannot get cefepime. So we are going to use piperacillin and tazobactam. 4.5 g. The ER doctor also wonders if this could be related to her colony-stimulating factor. There is fever associated with that. - Past Medical History Cardiovascular: reports: Hypertension, High cholesterol, Arrhythmia (history of A fib) Respiratory: reports: Sleep apnea, CPAP use Endocrine/Autoimmune: reports: Type 2 diabetes, HyPOthyroidism GI: reports: None, GI bleed INCOME TAX ADMINISTRATOR: reports: Other () : reports: None HEENT: reports: Chronic sinusitis (Or sinus congestion for the last week) Psych: reports: Depression Musculoskeletal: reports: None Derm: reports: Psoriasis, Other (Frequent rash of forearms over the last month) MRSA Hx?: No - Past Surgical History General: reports: Colonoscopy Ortho: reports: Amputation, Other - CONSULTS | PROCEDURES Procedures: 1. Chest x-ray without acute cardiopulmonary changes. Port-A-Cath positioning with tip in the azygous arch. Sinus CT with extensive sinus mucosal disease with scattered air-fluid levels suggestive of acute sinusitis 3. Blood cultures negative after 2 days - HOSPITAL COURSE Hospital Course: She was placed on empiric broad-spectrum antibiotics. She then shared with us that she has been having severe sinus problems over the last few weeks. Limited CT of the sinuses was done and showed her to have acute sinusitis with air-fluid levels. When her white cell count was normal, and she was no longer febrile, she was transitioned to oral antibiotics. She had no recurrence of fever and as sure she was felt stable enough to return home. She is discharged to complete a current Z-Neal. Wait 5 days and do another Z- Neal. I am asking her to please see her primary care provider in follow-up. At discharge temperature 37.1. Heart rate 94. Blood pressure 134/84. Respir ations 14. 96% on room air. And alert oriented fatigued appearing female. From admission to now her confusion has resolved, much more alert and much more lucid conversationalist. Explained to me how she had her finger chopped off using a power tool. This was a few years ago. Neck is shotty adenopathy. Lungs are clear. No respiratory distress. Irregular rate and rhythm. A port site that is clean, closed, no fluctuance. No drainage. And abdomen soft, nontender. Normal bowel sounds. Extremities without edema or lesions. Greater than 30 minutes was spent corning discharge. And explained to her what she needed to do with regards to improving her anorexia from chemotherapy. She did not have any diarrhea when she got here. Lactic acidosis resolved. I am asking her to see her primary care provider and follow-up in the next 1 to 2 weeks. - ALLERGIES Allergies/Adverse Reactions: Allergies Allergy/AdvReac Type Severity Reaction Status Date / Time cephalexin [From Keflex] AdvReac Itching Verified 06/03/22 15:34 - MEDICATIONS Home Medications: Ambulatory Orders Medication Instructions Recorded Confirmed Atorvastatin [Lipitor] 20 mg ORAL DAILY 04/17/17 06/03/22 Ferrous Sulfate 324 mg ORAL BID 04/17/17 06/04/22 Levothyroxine [Synthroid] 75 mcg ORAL DAILY 04/17/17 06/03/22 amLODIPine [Norvasc] 5 mg ORAL DAILY 04/17/17 06/04/22 Metoprolol Succinate [Toprol Xl] 12.5 mg PO DAILY 02/18/22 06/03/22 lisinopriL [Zestril] 2.5 mg PO DAILY 02/18/22 06/03/22 OLANZapine [Zyprexa] 5 mg PO UD #12 tablet 02/21/22 06/03/22 Prochlorperazine Maleate 10 mg PO Q6HR PRN #30 tablet 02/21/22 06/04/22 ondansetron HCL [Ondansetron HCl] 8 mg PO BID PRN #30 tablet 02/21/22 06/04/22 Apixaban [Eliquis] 5 mg PO BID 03/04/22 06/03/22 Azithromycin 250 mg PO DAILY #4 tablet 06/06/22 Azithromycin 500 mg PO ONCE #1 tablet 06/06/22 Azithromycin [Zithromax] 250 mg PO DAILY #3 tab 06/06/22 - LABS Result Diagrams: 06/06/22 05:30 06/06/22 05:30
[2022-06-07] MEDS ORDERED: LEVOTHYROXINE 25 MCG TABLET PO SCH (07:00)
== END 2022-06-06 11:35 | disposition home or self-care (01) | DRG 809 ==
LOC: ED 15:06 → MS3 17:28
PROVIDERS: ADMIT Specialist; ATTEND Specialist
DX: D70.9 Neutropenia, unspecified (principal); C81.70 Other Hodgkin lymphoma, unspecified site; E87.20 Acidosis, unspecified; I48.20 Chronic atrial fibrillation, unspecified; J01.90 Acute sinusitis, unspecified; R50.81 Fever presenting with conditions classified elsewhere; D61.810 Antineoplastic chemotherapy induced pancytopenia; E87.6 Hypokalemia; E86.0 Dehydration; R19.7 Diarrhea, unspecified; I10 Essential (primary) hypertension; R00.0 Tachycardia, unspecified; R21 Rash and other nonspecific skin eruption; E11.9 Type 2 diabetes mellitus without complications; G47.30 Sleep apnea, unspecified; E03.9 Hypothyroidism, unspecified; D64.81 Anemia due to antineoplastic chemotherapy; L65.8 Other specified nonscarring hair loss; Z20.822 Contact with and (suspected) exposure to COVID-19; Z79.01 Long term (current) use of anticoagulants; Z79.84 Long term (current) use of oral hypoglycemic drugs; Z88.1 Allergy status to other antibiotic agents
CPT/HCPCS: 36415; 70486; 71045; 80048; 80053; 81003; 83605; 83690; 84145; 85025; 86850; 86900; 86901; 86920; 87040; 87045; 87046; 87177; 87427; 87633; 99284; 99285; A9270; P9040; 81001; 87081; 87086; 87493

== ENCOUNTER 2022-08-23 15:54 | Outpatient (CLI) | payer MEDICAID | END 2022-08-23 15:55 | disposition EMS.NT | LOC: EMS 15:54 | DX: Z03.89 Encounter for observation for other suspected diseases and conditions ruled out (principal) ==

== ENCOUNTER 2022-09-29 09:04 | Outpatient (CLI) | payer MEDICAID ==
[2022-09-29 14:46] LABS: CREATININE,URINE 86.6 mg/dL; MICROALBUM/CREATININE RATIO,UR 41.6 ug/mg (<30.0); MICROALBUMIN,URINE 3.6 mg/dL (0-300.0)
[2022-09-29 14:58] LABS: BUN - BLOOD UREA NITROGEN 39 mg/dL (6-20); CALCIUM 9.8 mg/dL (8.5-10.3); CARBON DIOXIDE - CO2 26 mmol/L (21-32); CHLORIDE 110 mmol/L (101-111); CHOL/HDL RATIO 2.6 (<4.4); CHOLESTEROL 125 mg/dL; GFR - MDRD 56 (>89); GLUCOSE 92 mg/dL (70-100); HDL CHOLESTEROL 49 mg/dL; LDL CHOLESTEROL,CALCULATED 59 mg/dL; LDL/HDL RATIO 1.2 (<4.4); POTASSIUM 3.9 mmol/L (3.5-5.0); SODIUM 142 mmol/L (135-145); TRIGLYCERIDES 84 mg/dL; VLDL CHOLESTEROL 17 mg/dL
[2022-09-29 20:38] LABS: ESTIMATED AVERAGE GLUCOSE 88 mg/dL (70-100); HEMOGLOBIN A1c% 4.7 % (4.27-6.07)
== END 2022-09-29 09:05 | disposition home or self-care (01) ==
LOC: LAB.S 09:04
PROVIDERS: ATTEND Nurse Practitioner
DX: E11.65 Type 2 diabetes mellitus with hyperglycemia (principal); E78.2 Mixed hyperlipidemia
CPT/HCPCS: 36415; 80048; 80061; 82043; 82570; 83036; 83721

== ENCOUNTER 2023-01-10 12:00 | Outpatient (CLI) | payer MEDICAID ==
[2023-01-10 20:37] LABS: ESTIMATED AVERAGE GLUCOSE 97 mg/dL (70-100)
== END 2023-01-10 12:01 | disposition home or self-care (01) ==
LOC: LAB.S 12:00
PROVIDERS: ATTEND Nurse Practitioner
DX: E11.8 Type 2 diabetes mellitus with unspecified complications (principal)
CPT/HCPCS: 36415; 83036

== ENCOUNTER 2023-01-17 14:49 | Outpatient (CLI) | payer MEDICAID | END 2023-01-17 14:50 | disposition home or self-care (01) | LOC: RT 14:49 | PROVIDERS: ATTEND Internal Medicine Hematology & Oncology | DX: C81.28 Mixed cellularity Hodgkin lymphoma, lymph nodes of multiple sites (principal) | CPT/HCPCS: 94010; 94729 ==

== ENCOUNTER 2023-03-30 09:54 | Outpatient (CLI) | payer MEDICAID ==
[2023-03-30 15:38] LABS: THYROID STIMULATING HORMONE 7.01 uIU/mL (0.34-5.60)
== END 2023-03-30 09:55 | disposition home or self-care (01) ==
LOC: LAB.S 09:54
PROVIDERS: ATTEND Registered Nurse
DX: E03.9 Hypothyroidism, unspecified (principal)
CPT/HCPCS: 36415; 84439; 84443; 87661; 87801